=== PATIENT | female | born 1980 | race Caucasian/White ===

== ENCOUNTER 2023-02-15 13:36 | Observation (INO) | payer OTHER, SELFPAY ==
[2023-02-15 13:52] VITALS: BP 136/85; PULSE 68
[2023-02-15] MEDS: LACTATED RINGER'S SOLUTION 1,000 ML 1000 ML IV (14:42)
[2023-02-15] MEDS: RHO(D) IMMUNE GLOBULIN 1,500 UNIT SYRINGE 1500 UNIT IV (14:46)
[2023-02-15] MEDS: NIFEdipine 30 MG TAB.ER.24 PO (16:09)
--- NOTE | 2023-02-15 18:17 | PC.NURSE ---
1800: TC to CNM and report given- ctxs less frequent and less intense- patient felt 3 ctxs in 50 minutes. Instructions received for sve and discharge home if cervix closed. Rest/pelvic rest, stop pumping and nursing 10 month old,. Stop in for checkup next week and procardia to be called into patient pharmacy by CNM. [id number]: SVe unchanged- cervix remains closed- discharge instructions reviewed and patient asks about running and lifting weights. Instructed no running/ lifting weights until seen by CNM next week-patient verbalized understanding. IV discontinued and copy of discharge instructions reviewed and given to patient. 1825: discharged ambulatory home undelivered with mother.
== END 2023-02-15 18:30 | disposition home or self-care (01) ==
PROVIDERS: Admitting Provider Midwife; Visit Provider Midwife
DX: O47.03 False labor before 37 completed weeks of gestation, third trimester (principal); O26.893 Other specified pregnancy related conditions, third trimester; Z3A.29 29 weeks gestation of pregnancy; Z67.11 Type A blood, Rh negative
CPT/HCPCS: 36415; 59025; 86850; 86900; 86901; 96372; G0378; G0379; J2790

== ENCOUNTER 2023-02-16 20:47 | Outpatient (OUT) | payer OTHER, SELFPAY ==
[2023-02-16 21:30] LABS: Bilirubin Urine NEGATIVE (NEGATIVE); Blood Urine NEGATIVE (NEGATIVE); Clarity Urine CLEAR (CLEAR); Color Urine LT. YELLOW (YELLOW); Glucose Urine UA NEGATIVE (NEGATIVE); Ketones Urine NEGATIVE (NEGATIVE); Leukocyte Esterase Urine NEGATIVE (NEGATIVE); Nitrite Urine NEGATIVE (NEGATIVE); Protein Urine NEGATIVE (NEG/TRACE); Specific Gravity Urine <=1.005 (1.005-1.025); Urobilinogen Urine 0.2 EU/dL (0.2-1.0)
[2023-02-16 21:31] LABS: Urine Microscopic Indicated NO
[2023-02-16 22:01] VITALS: BP 101/54; PULSE 63; RESP 16; TEMP 36.9
--- NOTE | 2023-02-16 22:22 | US_ITS ---
[address] [address] Patient Name: GAY MARROQUIN MRN: [id number] date: 1980 Sex: F Assigned Patient Location: [facility] Current Patient Location: [facility] Accession/Order Number: [id number] Exam Date: 02/16/2023 22:48 Report Date: 02/16/2023 23:20 At the request of: BILLY PRADO Procedure: US OB cervical length Examination:US OB cervical length INDICATION:Contractions x2 days COMPARISON:None. TECHNIQUE:Transvaginal imaging of the pelvis was performed. FINDINGS:The cervix measures 4.1 cm and is closed without cervical funneling. There is a single live intrauterine gestation with a heartbeat of 139 bpm. US/US OB cervical length IMPRESSION: Cervical length is 4.1 cm without funneling. Electronically authenticated by: JE HARDING Date: 02/16/2023 23:20
== END 2023-02-16 23:30 | disposition home or self-care (01) ==
LOC: FBCO 20:49 → FBC 20:51
PROVIDERS: Obstetrics & Gynecology; Visit Provider Midwife
DX: O47.9 False labor, unspecified (principal); Z3A.00 Weeks of gestation of pregnancy not specified
CPT/HCPCS: 59025; 76817; 81003

== ENCOUNTER 2023-02-28 18:22 | Observation (INO) | payer OTHER, SELFPAY ==
[2023-02-28] VITALS (28 sets, daily range): BP systolic 105–121; BP diastolic 55–72; PULSE 65–162
[2023-02-28 18:59] LABS: Bilirubin Urine NEGATIVE (NEGATIVE); Blood Urine NEGATIVE (NEGATIVE); Clarity Urine CLEAR (CLEAR); Color Urine LT. YELLOW (YELLOW); Glucose Urine UA NEGATIVE (NEGATIVE); Ketones Urine NEGATIVE (NEGATIVE); Leukocyte Esterase Urine TRACE (NEGATIVE); Nitrite Urine NEGATIVE (NEGATIVE); Protein Urine NEGATIVE (NEG/TRACE); Specific Gravity Urine <=1.005 (1.005-1.025); Urobilinogen Urine 0.2 EU/dL (0.2-1.0)
[2023-02-28 19:05] LABS: Bacteria Urine TRACE #/HPF (NONE SEEN); Cast Seen? NONE SEEN #/LPF (NONE SEEN); Crystals Seen? None Seen #/HPF (None Seen); Mucus Urine NONE SEEN (NONE SEEN); RBC Urine NONE SEEN #/HPF (0-2); Squamous Epithelial Cell Urine MODERATE #/LPF (NONE/RARE)
--- NOTE | 2023-02-28 19:24 | US_ITS ---
The [address] [address] Patient Name: GAY MARROQUIN MRN: [id number] date: 1980 Sex: F Assigned Patient Location: [facility] Current Patient Location: [facility] Accession/Order Number: [id number] Exam Date: 02/28/2023 20:00 Report Date: 02/28/2023 21:51 At the request of: MARKO GAMEZ Procedure: US OB growth EXAM: US OB growth HISTORY: contractions. COMPARISON: Cervical length study, same date TECHNIQUE: Transabdominal sonography is performed. FINDINGS: There is a single, live intrauterine . Cardiac activity is measured at 146 bpm. Amniotic fluid pockets measured 20.1 cm, which falls between the fifth and 95th percentile. The cervical os is closed. The cervical length measures 3.9 cm. The stents from the placenta to the internal os measures 4.2 cm. Femur length is measured at 5.8 cm, consistent with a gestational age of 30 weeks 2 days. This falls at the 20th percentile. Abdominal circumference measures 28.2 cm, the stent with a gestational age of 32 weeks 2 days. This falls at the 81st percentile. Head circumference is measured at 32 cm, consistent with a gestational age of 35 weeks 4 days, which falls at the 97th percentile. US/US OB growth IMPRESSION: Single live intrauterine gestation. Normal volume amniotic fluid. The cervical os is closed. Measurements show the femur length to fall at approximately the 20th percentile, disproportionate to the head circumference which falls at the 97th percentile. Question whether this is artifactual due to the position of the fetus versus a true finding. The fetus appears to be breech. Electronically authenticated by: OLEG MCCARTNEY Date: 02/28/2023 21:51
--- NOTE | 2023-02-28 19:24 | US_ITS ---
[address] [address] Patient Name: GAY MARROQUIN MRN: [id number] date: 1980 Sex: F Assigned Patient Location: [facility] Current Patient Location: [facility] Accession/Order Number: [id number] Exam Date: 02/28/2023 20:00 Report Date: 02/28/2023 21:31 At the request of: MARKO GAMEZ Procedure: US OB cervical length EXAM: US OB cervical length HISTORY: contractiuons COMPARISON: None. TECHNIQUE: Limited ultrasound is performed for evaluation of cervical length. Multiple grayscale images are submitted for review. FINDINGS: The cervix appears closed. Cervical length measures 3.9 cm. Placenta tip to the internal os measures 4.2 cm. Single live intrauterine is seen. Amniotic fluid volume appears normal and 20.1 cm, between fifth and 95th percentile.. The largest fluid pocket measures 7.4 cm. heart rate is 146 beats per minute. Estimated weight measures 1895 g (74.1%) Head circumference measures greater than 97%. US/US OB cervical length IMPRESSION: The cervix appears closed. Cervical length measures 3.9 cm. There are single live intrauterine . Normal amniotic fluid volume is rotated. heart rate is 146 beats per minute. Estimated weight measures 1895 g (74.1%) Electronically authenticated by: KERMIT GAMA Date: 02/28/2023 21:31
[2023-02-28] MEDS: LACTATED RINGER'S SOLUTION 1,000 ML 1000 ML IV (19:37)
[2023-02-28] MEDS: MAGNESIUM SULFATE IN WATER 4 GM/100 ML PIGGYBACK IV (19:39)
[2023-02-28] MEDS: MAGNESIUM SULFATE IN WATER 40 GM/1,000 ML IV.SOLN IV (20:11)
--- NOTE | 2023-02-28 20:21 | PC.NURSE ---
2015 Dr Jackson is accepting patient transfer
[2023-02-28] MEDS: BETAMETHASONE ACE/BETAMETHASONE SOD PHOS 30 MG/5 ML 12 MG IM (20:22)
[2023-02-28] MEDS: NIFEdipine 10 MG CAPSULE 20 MG PO (22:55)
--- NOTE | 2023-02-28 22:58 | P.EN_ITS ---
Event Note Event Note: 1914 arrived in unit. patient assessed for contractions and rule out labor. Patient came to the hospital due to painful contractions and breathing through them. RN performed SVE and stated patient was 1-2/50/soft and unable to assess presenting part. US called and breech position verified. Ord ers given. I also called Dr Perez with report due to patient being a repeat section. 1999 transport team called at [facility]. Spoke with M Dr Jackson. Report given and she agrees to accept the patient for contractions, paperwork completed and transfer consent obtained, history of section, contractions and dilatation. I reported I started 4gm bolus of magnesium sulfate started for bolus and then 2 gm maintenance to infuse when bolus is complete. Procardia 20 mg q6 hrs ordered per Dr Jackson at [place], that dose will be due at 11:10 PM. Discussed transfer of care with patient and she is in agreement. She also does admit to me that even though I instructed pelvic rest, she did have intercourse today. US to department, she states cervical length is 3.9 cm, TRAY 20.1 cm, EFW 4#3 oz which is 74% growth, and head circumference is greater than 97%. 2200 SVE done cervix is unchanged from previous exam. 2229 [facility] transport team present in unit and preparing to transfer patient. Care relinquished to the team at this time. 2254 [facility] RN administers Procardia 20 mg po as it will be due in 20 mins and they will be en route and she would get it late if they waited until she got to [place].
== END 2023-02-28 22:55 | disposition short-term general hospital (02) ==
PROVIDERS: Admitting Provider Midwife; Visit Provider Midwife
DX: O60.03 Preterm labor without delivery, third trimester (principal); Z3A.38 38 weeks gestation of pregnancy
CPT/HCPCS: 59025; 76816; 76817; 81001; 96372; 96374; 96376; G0378; G0379; J0702

== ENCOUNTER 2023-03-21 07:53 | Outpatient (OUT) | payer OTHER, SELFPAY ==
[2023-03-21 12:20] VITALS: TEMP 36.1
[2023-03-21 12:21] VITALS: BP 118/73; PULSE 67
== END 2023-03-21 12:45 | disposition home or self-care (01) ==
LOC: FBCO 07:53 → FBC 12:18
PROVIDERS: Visit Provider Midwife
DX: O09.529 Supervision of elderly multigravida, unspecified trimester (principal); Z3A.00 Weeks of gestation of pregnancy not specified
CPT/HCPCS: 59025

== ENCOUNTER 2023-04-25 05:30 | Inpatient (IN) | payer OTHER, SELFPAY ==
[2023-04-25] VITALS (26 sets, daily range): BP systolic 91–140; BP diastolic 50–90; PULSE 62–80; RESP 14–27; TEMP 36.6–37.1; O2SAT 98
--- OUTSIDE RECORDS SUMMARY | 2023-04-25 05:34 | XMS_ITS | CCD ---
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 Name Role Phone Unavailable Primary Care Provider Unavailabl e PAY, DR CROW Attending [facility] CUELLO Primary Care Unavailable PAY, DR CROW Admitting Unavailable PAY, DR CROW Consulting Unavailable LIYA, HILARIA GUTIÉRREZ Consulting Unavailable JANA, REGAN Consulting Unavailable Shanique Mark MD Primary Care Ct ovider MACEY WONG Admitting Unavailable MACEY WONG Attending Unavailable SHANIQUE MARK Primary Care Un available SHANIQUE MARK Primary Care Un available FLOROMARKO Admitting Unavailable FLOROMARKO Attending Unavailable FLOROMARKO Referring Unavailable FLORO, MARKO Shaffer Attending Unavailable FLORO, MARKO Shaffer Referring Unavailable FLORO, MARKO Shaffer Referring Unavailable FLORO, MARKO Shaffer Referring Unavailable FLORO, MARKO Shaffer Attending Unavailable FLORO, MARKO Shaffer Referring Unavailable FLORO, MARKO Shaffer Attending Unavailable FLORO, MARKO Edmund Referring Unavailable FLORO, MARKO Edmund Attending Unavailable FLORO, MARKO Edmund Attending Unavailable FLORO, MARKO Edmund Referring Unavailable FLORO, MARKO Edmund Attending Unavailable FLORO, MARKO Edmund Referring Unavailable Medications Current Medications Medication Drug Class(es) Dates Sig (Normalized) Sig (Original) acetaminophen 500 mg oral tablet (1 source) Start: 03-16-2022 acetaminophen (TYLENOL) tablet 1,000 mg benzocaine 6 mg / menthol 10 mg oral lozenge (1 source) Standardized Chemical Allergen Start: 03-17-2022 Benzocaine-Menthol (CEPACOL) 1 lozenge calcium chloride 0.0014 meq/ml / potassium chloride 0.004 meq/ml / sodium chloride 0.103 meq/ml / sodium lactate 0.028 meq/ml injectable solution (3 sources) Start: 03-16-2022 End: 03-16-2022 lactated ringers infusion 1 ml carboprost 0.25 mg/ml injection (1 source) Prostaglandin Analog Start: 03-16-2022 carboprost (HEMABATE) injection 250 mcg 1 ml diphenhydrAMINE hydrochloride 50 mg/ml cartridge (1 source) Histamine-1 Receptor Antagonist Start: 03-16-2022 diphenhydrAMINE (BENADRYL) injection 25 mg docusate sodium 100 mg oral capsule (2 sources) Start: 03-16-2022 take 1 capsule by mouth twice daily as needed for constipation docusate sodium (COLACE, DULCOLAX) 100 MG CAPS Take 100 mg by mouth 2 times daily as needed for Constipation 30 capsule 1 03/18/2022 Active docusate sodium 50 mg / sennosides, retirement 8.6 mg oral tablet (1 source) Start: 03-16-2022 sennosides-docusate sodium (SENOKOT-S) 8.6-50 MG tablet 1 tablet 0.4 ml enoxaparin sodium 100 mg/ml prefilled syringe (1 source) Low Molecular Weight Heparin Start: 03-16-2022 enoxaparin (LOVENOX) injection 40 mg ibuprofen 800 mg oral tablet (2 sources) Nonsteroidal Anti-inflammatory Drug Start: 03-17-2022 End: 03-21-2022 take 1 tablet by mouth every eight hours as needed for pain ibuprofen (ADVIL;MOTRIN) 800 MG tablet Take 1 tablet by mouth every 8 hours as needed for Pain 90 tablet 1 03/18/2022 03/21/2022 Active lanolin 1000 mg/ml topical cream (1 source) Start: 03-16-2022 lansinoh lanolin ointment 1 ml methylergonovine maleate 0.2 mg/ml injection (1 source) Ergot Derivative Start: 03-16-2022 methylergonovine (METHERGINE) injection 200 mcg miSOPROStol 0.1 mg oral tablet (1 source) Prostaglandin E1 Analog Start: 03-16-2022 miSOPROStol (CYTOTEC) tablet 800 mcg Multiple Vitamins-Minerals (THERAPEUTIC MULTIVITAMIN-MINERALS ) tablet (2 sources) take 1 tablet by mouth once daily Multiple Vitamins-Minerals (THERAPEUTIC MULTIVITAMIN-MINERAL S) tablet Take 1 tablet by mouth daily 0 Active take 1 tablet by mouth once mallorie y Multiple Vitamins-Minerals (THERAPEUTIC MULTIVITAMIN-MINERALS) tablet Take 1 tablet by mouth daily 0 Suspended 1 ml nalbuphine hydrochloride 10 mg/ml injection (1 source) Opioid Agonist/Antagonist Start: 03-16-2022 nalbuphine (NUBAIN) injection 10 mg 1 ml naloxone hydrochloride 0.4 mg/ml injection (1 source) Opioid Antagonist Start: 03-16-2022 naloxone (NARCAN) injection 0.4 mg 2 ml ondansetron 2 mg/ml injection (1 source) Serotonin-3 Receptor Antagonist Start: 03-16-2022 ondansetron (ZOFRAN) injection 4 mg oxyCODONE hydrochloride 5 mg oral tablet (2 sources) Opioid Agonist Start: 03-18-2022 End: 03-21-2022 take 1 tablet by mouth every six hours as needed for pain oxyCODONE (ROXICODONE) 5 MG immediate release tablet Indications: S/P repeat low transverse Take 1 tablet by mouth every 6 hours as needed for Pain for up to 3 days. Max Daily Amount: 20 mg 12 tablet 0 03/18/2022 03/21/2022 Active Start: 03-16-2022 oxyCODONE (FELIPE ICODONE) immediate release tablet 5 mg vitamin 27-1 MG tab let 1 tablet (1 source) Start: 03-16-2022 vitam in 27-1 MG tablet 1 tablet simethicone 80 mg chewable tablet (1 source) Start: 03-16-2022 simethicone (M YLICON) chewable tablet 80 mg 5 ml sodium chloride 9 mg/ml injection (3 sources) Start: 03-16-2022 0.9 % sodium c hloride infusion Start: 03-16-2022 sodium chlorid e flush 0.9 % injection 5-40 mL Completed/Discontinued Medications Medication Drug Class(es) Dates Sig (Normalized) Sig (Original) albuterol 0.83 mg/ml inhalation solution (1 source) beta2-Adrenergic Agonist Start: 03-18-2022 End: 03-18-2022 albuterol (PROVENTIL) nebulizer solution 2.5 mg Start: 03-18-2022 End: 03-18-2022 albuterol (PROVENTIL) nebuli zer solution 2.5 mg 24 hr buPROPion hydrochloride 300 mg extended release oral tablet (3 sources) Aminoketone Start: 12-11-2019 End: 03-18-2022 buPROPion (WELLBUTRIN XL) 300 MG extended release tablet cefOXitin (MEFOXIN) 2000 mg in dextrose 5% 50 mL (mini-bag) (1 source) Start: 03-16-2022 End: 03-16-2022 cefOXitin (MEFOXIN) 2000 mg in dextrose 5% 50 mL (mini-bag) citric acid 66.8 mg/ml / sodium citrate 100 mg/ml oral solution (1 source) Calculi Dissolution Agent, Anti-coagulant Start: 03-16-2022 End: 03-16-2022 citric acid-sodium citrate (BICITRA) solution 30 mL dextromethorphan hydrobromide 2 mg/ml / guaiFENesin 20 mg/ml oral suspension (1 source) Uncompetitive X-iyiorr-K-aspartate Receptor Antagonist, Sigma-1 Agonist Start: 03-18-2022 End: 03-18-2022 guaiFENesin-dextrom ethorphan (ROBITUSSIN DM) 100-10 MG/5ML syrup 10 mL Ethinyl Estradiol / Ferrous fumarate / Norethindrone (3 sources) Estrogen Start: 11-04-2019 End: 03-18-2022 MICROGESTIN FE 1/20 1-20 MG-MCG per tablet Start: 11-04-2019 MICROGESTIN FE 1/20 1-20 MG-MCG per tablet famotidine (PEPCID) 20 mg in sodium chloride (PF) 0.9 % 10 mL injection (1 source) Start: 03-16-2022 End: 03-16-2022 famotidine (PEPCID) 20 mg in sodium chloride (PF) 0.9 % 10 mL injection 1 ml ketorolac tromethamine 30 mg/ml cartridge (1 source) Nonsteroidal Anti-inflammatory Drug, Cyclooxygenase Inhibitor Start: 03-16-2022 End: 03-17-2022 ketorolac (TORADOL) injection 30 mg 2 ml metoclopramide 5 mg/ml prefilled syringe (1 source) Dopamine-2 Receptor Antagonist Start: 03-16-2022 End: 03-16-2022 metoclopramide (REGLAN) injection 10 mg rho(d) immune globulin, human 1500 unt prefilled syringe (1 source) Human Immunoglobulin G Start: 03-16-2022 End: 03-18-2022 rho(D) immune globulin (HYPERRHO S/D) injection 300 mcg Problems Problem Classification Problem Date Documented Da te Episodic/Chronic Other aftercare (1 source) 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; Translations: [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] Onset: 12-07-2020 Episodic Other lower respiratory disease (3 sources) Shortness of breath; Translations: [SHORTNESS OF BREATH] Onset: 12-04-2020 Episodic Other and delivery including normal (2 sources) Term ; Translations: [Encounter for supervision of normal , unspecified, unspecified trimester] Onset: 03-16-2022 Episodic Other upper respiratory infections (2 sources) Viral upper respiratory tract infection; Translations: [Acute upper respiratory infection, unspecified] Onset: 03-16-2022 Episodic Previous (2 sources) Maternal care for unspecified type scar from previous delivery; Translations: [Maternal care for unspecified type scar from previous delivery] Onset: 03-15-2022 Episodic Residual codes; unclassified (1 source) History of uterine scar from previous surgery; Translations: [History of uterine scar from previous surgery] Onset: 03-16-2022 Episodic Unclassified (3 sources) Patient encounter status; Translations: [Screen for STD (sexually transmitted disease)] Viral infection (1 source) COVID-19; Translations: [COVID-19] Onset: 12-07-2020 Results Test Name Value Interpretation Reference Range Facil ity US BIOPHYSICAL PROFILE WO NON STRESS TESTINGon 04-20-2023 US BIOPHYSICAL PROFILE WO NON STRESS TESTING EXAMINATION: BIOPHYSICAL PROFILE CLINICAL HISTORY: COMPARISONS: None available. FINDINGS: Transabdominal ultrasound of the gravid uterus was performed for 30 minutes or less for evaluation of biophysical profile with scoring as follows: 2 out of 2 for breathing 2 out of 2 for movement. 2 out of 2 for tone. 2 out of 2 for amniotic fluid volume. heart rate of 134 beats per minute is documented. Amniotic fluid index calculated at 14.22 cm, 56.8%. IMPRESSION: BIOPHYSICAL PROFILE WITH A SCORE OF 8 OUT OF 8. CLINICAL CORRELATION RECOMMENDED. Normal Not Available US OB FOLLOW UP TRANSABDOMIN AL APPROACHon 04-13-2023 US OB FOLLOW UP TRANSABDOMINAL APPROACH HISTORY: Interval follow-up COMPARISON: 04/06/2023 TECHNIQUE: Sonography of the pelvis was performed by transabdominal technique. Images were obtained and stored in a permanent archive. RESULT: Gestation: Single present. Position: Cephalic Placenta: Location: Posterior Grade: I Previa: absent Cervix: Closed measuring 3.8 cm in length. Cardiac activity: 141 bpm BPD: 9.2 cm HC: 33.4 cm AC: 33 cm FL: 7.3 cm Amniotic fluid: 14.8 cm, 58th percentile Estimated weight (EFW): 3171 g (7 pounds 0 ounces), 61st percentile Estimated gestational age: 37 weeks 2 days estimated gestational age by composite. Anatomy: No gross anomalies in the visualized anatomy. IMPRESSION: Single, live intrauterine with estimated 37 weeks 2 days gestational age. ELECTRONICALLY SIGNED BY: Tomas Khan MD Normal Not Available US OB FOLLOW UP TRANSABDOMIN AL APPROACHon 04-06-2023 US OB FOLLOW UP TRANSABDOMINAL APPROACH This is a summary report. The complete report is available in the patient's medical record. If you cannot access the medical record, please contact the sending organization for a detailed fax or copy. US OB FOLLOW UP TRANSABDOMINAL APPROACH: 04/06/2023 9:02 AM CLINICAL HISTORY: Ultrasound. For growth only COMPARISON: March 30, 2023 Transabdominal ultrasound of the gravid uterus was performed. FINDINGS: A single live intrauterine is noted in cephalic position. cardiac activity measures approximately 141 beats per minute. The cervix measures approximately 3.61 cm in longitudinal length. A grade 1 appearing placenta is posterior without evidence of an abnormal subplacental collection or previa. The amniotic fluid volume appears within normal limits for gestation. The TRAY measures 13.89 cm. The following measurements were obtained: BPD 8.96 cm, HC 32.27 cm, AC 32.38 cm, FL 7.09 cm, which corresponds to an aggregate gestational age of 36 weeks 2 days. Estimated weight is 2908 g which places this fetus in the 56.8 percentile.. There is no free fluid noted in the maternal pelvis. Neither maternal ovary is identified. IMPRESSION: SINGLE LIVE INTRAUTERINE CORRESPONDING TO APPROXIMATELY 36 WEEKS 2 DAYS WITH AN EXPECTED DUE DATE OF MAY 02, 2023.. NO GROSS ABNORMALITIES IDENTIFIED, WITHIN THE LIMITS OF THE STUDY. ELECTRONICALLY SIGNED BY: Hector Corey DO Normal Not Available US OB FOLLOW UP TRANSABDOMIN AL APPROACHon 03-30-2023 US OB FOLLOW UP TRANSABDOMINAL APPROACH HISTORY: Supervision of , third trimester. Age by LMP of 35 weeks 1 day COMPARISON: 03/24/2023 TECHNIQUE: Sonography of the pelvis was performed by transabdominal technique. Images were obtained and stored in a permanent archive. RESULT: Gestation: Single present. Position: Cephalic Placenta: Location: Posterior Grade: 1 Previa: absent Cervix: Closed measuring 3.9 cm in length. Cardiac activity: 143 bpm BPD: 8.8 cm HC: 31.7 cm AC: 31.6 cm FL: 6.9 cm Amniotic fluid: 12.8 cm, 37.1 percentile Estimated weight (EFW): 2696 g (5 pounds 15 ounces), 57.9 percentile Estimated gestational age: 35 weeks 4 days estimated gestational age by composite. Anatomy: No gross anomalies in the visualized anatomy. IMPRESSION: Single, live intrauterine with estimated 35 weeks 4 days gestational age. ELECTRONICALLY SIGNED BY: Tomas Khan MD Normal Not Available US OB FOLLOW UP TRANSABDOMIN AL APPROACHon 03-24-2023 US OB FOLLOW UP TRANSABDOMINAL APPROACH FINDINGS: Single live intrauterine . heart rate 118 bpm. Cephalic position. Fundal grade 1 placenta. TRAY 15.0 cm. Cervical length 5.1 cm. Estimated sonographic gestational age 35 weeks, 0 days. Gestational age by dates 34 weeks, 2 days. Estimated date of delivery April 28, 2023. Estimated weight 2523 g (60.3% by LMP percentile). BPD 8.86 cm. HC 31.57 cm. AC 30.86 cm. FL 6.65 cm. IMPRESSION: Impression: Single live intrauterine with estimated sonographic gestational age 35 weeks, 0 days. Estimated weight 2523 g. ELECTRONICALLY SIGNED BY: Abhijit Coleman MD Normal Not Available US OB FOLLOW UP TRANSABDOMIN AL APPROACHon 03-16-2023 US OB FOLLOW UP TRANSABDOMINAL APPROACH This is a summary report. The complete report is available in the patient's medical record. If you cannot access the medical record, please contact the sending organization for a detailed fax or copy. US OB FOLLOW UP TRANSABDOMINAL APPROACH: 03/16/2023 9:22 AM CLINICAL HISTORY: Ultrasound. Multigravida, maternal advanced age COMPARISON: March 09, 2023 Transabdominal ultrasound of the gravid uterus was performed. FINDINGS: A single live intrauterine is noted in breech position. cardiac activity measures approximately 156 beats per minute. The cervix measures approximately 3.94 cm in longitudinal length. Grade 1 placenta is posterior without evidence of an abnormal subplacental collection or previa. The amniotic fluid volume appears within normal limits for gestation. It measures 15.45 cm. The following measurements were obtained: BPD 8.39 cm, HC 30.70 cm, AC 29.68 cm, FL 6.49 cm, which corresponds to an aggregate gestational age of 33 weeks 6 days. Estimated weight is 2250 g which places this fetus in the 57.9 percentile. There is no free fluid noted in the maternal pelvis. Neither maternal ovary is identified. IMPRESSION: SINGLE LIVE INTRAUTERINE CORRESPONDING TO APPROXIMATELY 33 WEEKS 6 DAYS. The expected due date is April 28, 2023 NO GROSS ABNORMALITIES IDENTIFIED, WITHIN THE LIMITS OF THE STUDY. ELECTRONICALLY SIGNED BY: Hecotr Corey, DO Normal Not Available US OB FOLLOW UP TRANSABDOMIN AL APPROACHon 03-09-2023 US OB FOLLOW UP TRANSABDOMINAL APPROACH This is a summary report. The complete report is available in the patient's medical record. If you cannot access the medical record, please contact the sending organization for a detailed fax or copy. US OB FOLLOW UP TRANSABDOMINAL APPROACH: 03/09/2023 8:46 AM CLINICAL HISTORY: Ultrasound. COMPARISON: February 23, 2023 Transabdominal ultrasound of the gravid uterus was performed. FINDINGS: A single live intrauterine is noted in breech position. cardiac activity measures approximately 145 beats per minute. The lower uterine segment and cervix are seen, and appear within normal limits. The cervix measures approximately 4.4 cm cm in longitudinal length. A grade 1-appearing placenta is posterior without evidence of an abnormal subplacental collection or previa. The amniotic fluid volume appears within normal limits for gestation. It measures 15.2 cm. The following measurements were obtained: BPD 8.21 cm, HC 29.49 cm, AC 28.52 cm, FL 6.21 cm, which corresponds to an aggregate gestational age of 32 weeks 4 days. Estimated weight is 1983 g which places this fetus in the 50 percentile.. There is no free fluid noted in the maternal pelvis. Neither maternal ovary is identified. IMPRESSION: SINGLE LIVE INTRAUTERINE CORRESPONDING TO APPROXIMATELY 32 WEEKS 4 DAYS WITH AN EXPECTED DUE DATE OF APRIL 30, 2023.. NO GROSS ABNORMALITIES IDENTIFIED, WITHIN THE LIMITS OF THE STUDY. ELECTRONICALLY SIGNED BY: Hector Corey DO Normal Not Available [facility] 02-24-2023 Outside Records [id number][facility]ABDOMIN AL APPROACHon 02-23-2023 US OB FOLLOW UP TRANSABDOMINAL APPROACH FINDINGS: Single live intrauterine . heart rate 132 bpm. Somatic motion identified. Grade 0 fundal placenta. TRAY 15.9 cm. Cervical length 4.9 cm. Estimated sonographic gestational age 30 weeks, 2 days. Gestational age by dates, 30 weeks, 2 days. Estimated sonographic date of delivery May 02, 2023. Estimated weight 1580 g (43.6% by LMP percentile. BPD 7.81 cm. HC 28.75 cm. FL 5.79 cm. HC 26.11 cm. IMPRESSION: Impression: Single live intrauterine with estimated sonographic gestational age 30 weeks, 2 days. Estimated weight 1580 g. ELECTRONICALLY SIGNED BY: Abhijit Coleman MD Normal Not Available [facility] 02-22-2023 Outside Records [id number]#1. [facility] - Other Lab Results [id number]#1 .[facility] 01-27-2023 Outside Records [id number]# 1.[facility] - Other Lab Results [id number]# 1.[facility] - Other Lab Results [id number]#1 .[facility] 11-30-2022 Outside Records [id number]#1. [facility] - Other Lab Results [id number]#1 .[facility] 10-26-2022 Outside Records [id number]#1.0 [facility] 10-07-2022 Outside Records [id number]# 1.[facility] - Other Lab Results [id number]#1 .[facility] ROSETTEon 03-17-2022 Ramandeep Negative [facility] Rosetteon 03-17-2022 Ramandeep Negative Normal [facility] Comment on above: Performed By: #### C FET #### [facility] [address] [place] [address] Heel Sorter: Juan Salazar MD Hemoglobinon 03-17-2022 Hemoglobin (Bld) [Mass/Vol] 10.3 g/dL Low 11.9-15.1 [facility] Comment on above: Performed By: #### H GB #### [facility] [address] [place] [address] Heel Sorter: Juan Salazar MD Hemoglobin (Bld) [Mass/Vol] 10.3 g/dL Low 11.9 - 15.1 g/dL [facility] Interpretation and review of laboratory results Abnormal [facility] RHIG, Transfuseon 03-17-2022 RHIG, Transfuse Unit Number [id number] Blood Component Type RHIG Unit Division 00 Status of Unit TRANSFUSED Transfusion Status OK TO TRANSFUSE Normal [facility] Comment on above: Performed By: #### T RHIG #### [facility] [address] [place] [address] Heel Sorter: Juan Salazar MD DRUG SCREEN MULTI URINEon Amphetamine Screen, Ur Negative NEGATIVE [facility] Barbiturate Screen, Ur Negative NEGATIVE [facility] Benzodiazepine Screen, Urine Negative NEGATIVE [facility] Buprenorphine Urine Negative NEGATIVE [facility] Cannabinoid Scrn, Ur Negative NEGATIVE [facility] Cocaine Metabolite, Urine Negative NEGATIVE [facility] Methadone Screen, Urine Negative NEGATIVE [facility] Methamphetamine, Urine Negative NEGATIVE [facility] Opiates, Urine Negative NEGATIVE [facility] Oxycodone Screen, Ur Negative NEGATIVE [facility] Phencyclidine, Urine Negative NEGATIVE [facility] Propoxyphene, Urine Negative NEGATIVE [facility] Tricyclic Antidepressants, Urine Negative NEGATIVE [facility] Comment on above: Drug screen results are to be used for medical purposes only. All positive results are unconfirmed. Testing for employment or legal uses should be sent to a reference laboratory for confirmation. [facility] Drug Scr, Abuse, Uron 2021 Amphetamine(s),Ur Negative Normal NEG [facility] Comment on above: Performed By: #### D AU #### [facility] [address] [place] [address] Heel Sorter: Juan Salazar MD Barbiturate(s),Ur Negative Normal NEG [facility] Comment on above: Performed By: #### D AU #### [facility] [address] [place] [address] Heel Sorter: Juan Salazar MD Benzodiazepine(s) Negative Normal NEG [facility] Comment on above: Performed By: #### D AU #### [facility] [address] [place] [id number] Heel Sorter: Juan Salazar MD Buprenorphrine, Ur Negative Normal [facility] Comment on above: Performed By: #### D AU #### [facility] [address] [place], [facility] Heel Sorter: Juan Salazar MD Cannabinoid(s),Ur Negative Normal NEG [facility] Comment on above: Performed By: #### D AU #### [address] [place] [address] Heel Sorter: Juan Salazar MD Cocaine Metabolite Negative Normal [facility] Comment on above: Performed By: #### D AU #### [facility] [address] [place] [address] Dr. [place], [facility] Heel Sorter: Juan Salazar MD Methadone Ql (U) Negative Normal [facility] Comment on above: Performed By: #### D AU #### [address] [place] [id number] Heel Sorter: Juan Salazar MD Methamphetamine, Ur Negative Normal [facility] Comment on above: Performed By: #### D AU #### [facility] [address] [place] [address] Dr. [place], [facility] Heel Sorter: Juan Salazar MD Opiate(s), Ur Negative Normal [facility] Comment on above: Performed By: #### D AU #### [facility] [address] [place] [address] Heel Sorter: Juan Salazar MD Oxycodone, Urine Negative Normal NEG [facility] Comment on above: Performed By: #### D AU #### [facility] [address] [place] [address] Dr. [place], [facility] Heel Sorter: Juan Salazar MD Phencyclidine, Ur Negative Normal NEG [facility] Comment on above: Performed By: #### D AU #### [address] [place] [address] Heel Sorter: Juan Salazar MD Propoxyphene,Urine Negative Normal NEG [facility] Comment on above: Performed By: #### D AU #### [address] [place] [address] Heel Sorter: Juan Salazar MD Tricyclic antidepressants Screen Ql (U) Negative Normal NEG [facility] Comment on above: Result Comment: Drug screen results are to be used for medical purposes only. All positive results are unconfirmed. Testing for employment or legal uses should be sent to a reference laboratory for confirmation. Performed By: #### D AU #### [address] [place] [address] Heel Sorter: Juan Salazar MD OPERATIVE REPORTon OPERATIVE REPORT [address] [address] OPERATIVE REPORT PATIENT NAME: GAY MARROQUIN : 1980 MED REC NO: [id number] ROOM: [facility] ACCOUNT NO: [id number] ADMIT DATE: 03/16/2022 PROVIDER: Macey Wong MD DATE OF PROCEDURE: 03/16/2022 PREOPERATIVE DIAGNOSIS: Term with history of two prior sections. POSTOPERATIVE DIAGNOSIS: Term with history of two prior sections. PROCEDURE PERFORMED: Repeat section, low-transverse uterine segment. SURGEON: Macey Wong M.D. ANESTHESIA: Spinal. ENGAGEMENT LEAD: Marko Herbert. ESTIMATED BLOOD LOSS: 600 mL. COMPLICATIONS OF THE PROCEDURE: None. FINDINGS: A viable vigorous female infant in vertex presentation with clear amniotic fluid. DESCRIPTION OF PROCEDURE: The patient was taken to the operating room. Spinal anesthesia was administered. Pneumatic stockings were placed. Prepping with Trent catheter then placed in the bladder and then abdomen sterilely prepped and draped. Prior to this, pneumatic stockings were placed as well. Scalpel was used to incise the old incision. Bovie cautery was used to divide the subcutaneous tissue coagulating small vessels that were encountered and then to divide the fascia and then to help mobilize the fascia away from the underlying rectus muscles both superiorly and inferiorly. The peritoneum was bluntly entered and then the rectus muscles were bluntly and sharply in the midline and then lateral retraction placed on the muscles to allow good visualization of the lower uterine segment. Uterine peritoneum was elevated and incised and this was sharply and bluntly mobilized inferiorly creating a bladder flap. Scalpel was used to make a transverse incision over the lower uterine segment. The incision was carefully opened. Clear amniotic fluid noted and this was extended in a semilunar fashion with wood carving lathe operator's fingers. Uterine incision was then entered with wood carving lathe operator's fingers. Fundal pressure placed. 's head was readily delivered and then with further fundal pressure, 's body readily delivered as well. The cord was allowed to pulse, then it was clamped and cut. handed off to nursing staff attending delivery. Cord blood specimen was obtained and care. Then, placenta was manually extracted from the uterus and the uterus was checked for blood clots and membranes. Cervix was opened with ring forceps. Uterus was brought out of the incision and then the incision was closed with #1 chromic in a running interlocking fashion and then a second layer of running imbricating interlocking fashion. An additional [id number] suture was placed in the superior right lateral portion of the incision to give excellent hemostasis there. The posterior cul-de-sac was then cleaned of blood clots and fluid. Uterus carefully replaced into the abdomen. Anterior cul-de-sac and paracolic gutters were thoroughly cleaned and then uterus was replaced. The fascia was closed with 0 PDS in a running non-interlocking fashion. Subcutaneous tissue was well irrigated and then the subcutaneous layer was closed by Marko Herbert and the skin in a subcuticular fashion as well then. The patient did have a pain block postoperatively and the patient then taken to recovery room in good condition. MACEY WONG MD [id number]/[email or web address] Doc#: [id number] CC: Marko Herbert Normal [facility] CBCon 03-15-2022 Erythrocyte distribution width (RBC) [Ratio] 14.1 % Normal 11.8-14.4 [facility] Comment on above: Performed By: #### C BC #### [facility] [address] [place] [address] [place] [place], [place] [id number] Heel Sorter: Juan Salazar MD Hematocrit (Bld) [Volume fraction] 38.3 % Normal 36.3-47.1 [facility] Comment on above: Performed By: #### C BC #### [address] [place] [id number] Heel Sorter: Juan Salazar MD Hemoglobin (Bld) [Mass/Vol] 13.1 g/dL Normal 11.9-15.1 [facility] Comment on above: Performed By: #### C BC #### [address] [place], [place] [id number] Heel Sorter: Juan Salazar MD MCH (RBC) [Entitic mass] 31.6 pg Normal 25.2-33.5 [facility] Comment on above: Performed By: #### C BC #### [address] [place], [place] [id number] Heel Sorter: Juan Salazar MD MCHC (RBC) [Mass/Vol] 34.2 g/dL Normal 28.4-34.8 [facility] Comment on above: Performed By: #### C BC #### [address] [place] [address] Heel Sorter: Juan Salazar MD MCV (RBC) [Entitic vol] 92.3 fL Normal 82.6-102.9 [facility] Comment on above: Performed By: #### C BC #### [address] [place] [address] Heel Sorter: Juan Salazar MD NRBC Automated 0.0 per 100 WBC Normal 0.0 [facility] Comment on above: Performed By: #### C BC #### [facility] [address] [place] [address] Heel Sorter: Juan Salazar MD Platelet mean volume (Bld) [Entitic vol] 12.2 fL Normal 8.1-13.5 [facility] Comment on above: Performed By: #### C BC #### [facility] [address] [place] [address] Heel Sorter: Juan Salazar MD Platelets (Bld) [#/Vol] 193 10*3/uL Normal 138-453 [facility] Comment on above: Performed By: #### C BC #### [facility] [address] [place] [address] Heel Sorter: Juan Salazar MD RBC (Bld) [#/Vol] 4.15 10*6/uL Normal 3.95-5.11 [facility] Comment on above: Performed By: #### C BC #### [facility] [address] [place] [address] Heel Sorter: Juan Salazar MD WBC (Bld) [#/Vol] 8.7 10*3/uL Normal 3.5-11.3 [facility] Comment on above: Performed By: #### C BC #### [facility] [address] [place] [address] Heel Sorter: Juan Salazar MD Hematocrit (Bld) [Volume fraction] 38.3 % 36.3 - 47.1 % [facility] Hemoglobin (Bld) [Mass/Vol] 13.1 g/dL 11.9 - 15.1 g/dL [facility] MCH (RBC) [Entitic mass] 31.6 pg 25.2 - 33.5 pg [facility] MCHC (RBC) [Mass/Vol] 34.2 g/dL 28.4 - 34.8 g/dL [facility] MCV (RBC) [Entitic vol] 92.3 fL 82.6 - 102.9 fL [facility] NRBC Automated 0.0 0.0 per 100 WBC [facility] Platelet distribution width (Bld) [Ratio] 14.1 % 11.8 - 14.4 % [facility] Platelet mean volume (Bld) [Entitic vol] 12.2 fL 8.1 - 13.5 fL [facility] Platelets (Bld) [#/Vol] 193 10*3/uL [facility] RBC (Bld) [#/Vol] 4.15 10*6/uL 3.95 - 5.1 1 m/uL [facility] WBC (Bld) [#/Vol] 8.7 10*3/uL [facility] Type + Screenon 03-15-2022 Type + Screen Sample Expiration 03/18/2022,2359 Arm Band Number [id number] ABO/Rh(D) A NEGATIVE Antibody Screen POSITIVE Antibody Ident Anti-D, Passive Due To RhIG Normal [facility] Comment on above: Performed By: #### T YS #### [facility] [address] [place] [address] Heel Sorter: Juan Salazar MD GBS, External Resulton 02-21 GBS, External Result Positive [facility] Work Phone: Comment on above: RB RN/ MB RN [facility] Work Phone: US OB Limitedon 01-19-2022 US OB Limited FINDINGS: Comparison made with prior examination of January 10, 2022. A single, viable intrauterine adequate cardiac and activity (approximate 143 beats per minute). Normal morphology. Breech presentation. Anterior placenta Grade 1. Closed cervix 3.1 cm. Qualitative normal amniotic fluid volume, 22.0 cm, minimal change from the prior examination January 10, 2022. No placenta abruption is seen. IMPRESSION: Single, viable intrauterine , breech presentation, closed cervix. Report reported and signed by Eduardo Peres on 01/24/2022 1205 Normal [facility] ABO, External Resulton 12-28 ABO, External Result Negative [employer] Phone: Comment on above: MIL DELEON/ ALEKSANDRA DELEON [employer] Work Phone: US OB 1ST Trimesteron 2021 US OB 1ST Trimester FINDINGS: Comparison is made with the prior examination of August 03, 2021. A single intrauterine gestational sac is present without significant subchorionic hemorrhage. A single pole is present, cardiac heart rate identified (158 beats per minute). Yolk sac also is seen. Current sonographic age is 12 weeks and 0 days. Based on this age, current estimated date of delivery is March 15, 2022. No pelvic fluid or worrisome adnexal mass lesions are seen. Cervix is long and closed. Placenta is developing anteriorly. Anterior uterine body 1.0 x 1.0 cm echogenic area within the lower uterine segment, likely small intramural fibroid. IMPRESSION: Findings consistent with an early intrauterine gestational , current sonographic age of 12 weeks and 0 days resulting in an estimated date of delivery of March 15, 2022. Report reported and signed by Eduardo Peres on 08/31/2021 1130 Normal [facility] C. Trachomatis, External Res [facility] 08-16-2021 C. Trachomatis, External Result Not detected [employer] Work Phone: Comment on above: MIL JAEGER/ ALEKSANDRA DELEON Hepatitis B, External Result on 08-16-2021 Hep B, External Result Non-Reactive [employer] Work Phone: Comment on above: MIL DELEON/ ALEKSANDRA DELEON N. Gonorrhoeae, External Res [facility] 08-16-2021 N. Gonorrhoeae, External Result Not detected [employer] Work Phone: No Panel Informationon 08-16 [employer] Work Phone: [employer] Work Phone: Q - ABO GROUP AND RH TYPEon 08-16-2021 ABO group Nom (Bld) A Normal [facility] Specialist Comment on above: Order Comment: [facility] Testing performed at: [facility], [facility], [address] [place] [address], [address] [place] [address], [address] [place] [address], Medicaid Collection Specialist: Mike Larkin MD [facility] Collection Date/Time: [facility] Results Received Date/Time: [facility] Reported Date/Time: Performed By: #### 5 3348W, 4439, 6399, 49294, 2782A, 1149T, 43739, 265F, 430A, 6304R, 87240T, 69927 #### [facility] Default [address] [place] [address] RH TYPE Negative Normal [facility] Comment on above: Order Comment: [facility] performed at: Q, [facility], [address] [facility], [address] [place] [address], [address] [place] [address], Medicaid Collection Specialist: Mike Larkin MD [facility] Date/Time: [facility] Results Received Date/Time: [facility] Reported Date/Time: Result Comment: For additional information, please refer to http://education.[employer]/faq/XSF975 (This link is being provided for informational/ educational purposes only.) Performed By: #### 5 3348W, 4439, 6399, 38901, 2782A, 1149T, 51408, 265F, 430A, 6304R, 94182J, 28719 #### [facility] Default [address] [place] [address] Q - ANTIBODY SCREEN,RBC W/RE FL ID,TITER AND AGon 08-16-2021 ANTIBODY SCREEN, RBC W/REFL ID, TITER AND AG Detected Normal [facility] Comment on above: Order Comment: [facility] performed at: [employer], [facility], [address] [facility], [address] [place] [address], [address] [place] [address], Medicaid Collection Specialist: Mike Larkin MD [facility] Date/Time: [facility] Results Received Date/Time: [facility] Reported Date/Time: Result Comment: Refe rence range No antibodies detected This assay is a screening test for the detection of red blood cell antibodies. The test is not to be used for pretransfusion screening or for the medical management of an alloimmunized . Performed By: #### 5 3348W, 4439, 6399, 12762, 2782A, 1149T, 39238, 265F, 430A, 6304R, 62369X, 76591 #### [facility] Default [address] [place] [address] Q - CBC W/DIFF AND PLTon BASOABS 20 cells/uL Normal 0-200 [facility] Comment on above: Order Comment: [facility] performed at: [facility] [facility], [address] [place] [address], [address] [place] [address], [address] [place] [address], Medicaid Collection Specialist: Mike Larkin MD [facility] Date/Time: [facility] Results Received Date/Time: [facility] Reported Date/Time: Performed By: #### 5 3348W, 4439, 6399, 81901, 2782A, 1149T, 42308, 265F, 430A, 6304R, 64455T, 85896 #### [facility] Default [address] [place] [address] Basophils/100 WBC (Bld) 0.2 % Normal [facility] Specialist Comment on above: Order Comment: [facility] performed at: [employer] [facility], [address] [facility], [address] [place] [address], [address] [place] [address], Medicaid Collection Specialist: Mike Larkin MD [facility] Date/Time: [facility] Results Received Date/Time: [facility] Reported Date/Time: Performed By: #### 5 3348W, 4439, 6399, 55680, 2782A, 1149T, 91338, 265F, 430A, 6304R, 96357O, 86161 #### [facility] Default [address] [place] [address] EOSABS 30 cells/uL Normal 15-500 [facility] Comment on above: Order Comment: [facility] performed at: [employer], [facility], [address] [facility], [address] [place] [address], [address] [place] [address], Medicaid Collection Specialist: Mike Larkin MD [facility] Date/Time: [facility] Results Received Date/Time: [facility] Reported Date/Time: Performed By: #### 5 3348W, 4439, 6399, 43641, 2782A, 1149T, 51773, 265F, 430A, 6304R, 93937S, 97143 #### [facility] Default [address] [place] [address] Eosinophils/100 WBC (Bld) 0.3 % Normal [facility] Comment on above: Order Comment: [facility] performed at: [employer], [facility], [address], [address] [place] [address], [phone], Medicaid Collection Specialist: Mike Larkin MD [facility] Date/Time: [facility] Results Received Date/Time: [facility] Reported Date/Time: Performed By: #### 5 3348W, 4439, 6399, 22257, 2782A, 1149T, 95753, 265F, 430A, 6304R, 18873O, 39109 #### [facility] Default [address] [place] [address] Erythrocyte distribution width (RBC) [Ratio] 13.2 % Normal 11.0-15.0 [facility] Comment on above: Order Comment: [facility] performed at: [employer], [facility], [address] , [address] [place] [address], [address] [place] [address], Medicaid Collection Specialist: Mike Larkin MD [facility] Date/Time: [facility] Results Received Date/Time: [facility] Reported Date/Time: Performed By: #### 5 3348W, 4439, 6399, 67095, 2782A, 1149T, 20984, 265F, 430A, 6304R, 47084T, 53105 #### [facility] [address] [place] [address] Hematocrit (Bld) [Volume fraction] 37.0 % Normal 35.0-45.0 [facility] Comment on above: Order Comment: [facility] performed at: [employer], [facility], [address] , [address] [place] [address], [address] [place] [address], Medicaid Collection Specialist: Mike Larkin MD [facility] Date/Time: [facility] Results Received Date/Time: [facility] Reported Date/Time: Performed By: #### 5 3348W, 4439, 6399, 58716, 2782A, 1149T, 60093, 265F, 430A, 6304R, 97974P, 57327 #### [facility] Default [address] [place] [address] Hemoglobin (Bld) [Mass/Vol] 12.5 g/dL Normal 11.7-15.5 [facility] Comment on above: Order Comment: [facility] performed at: [employer], [facility], [address] , [address] [place] [address], [phone], Medicaid Collection Specialist: Mike Larkin MD [facility] Date/Time: [facility] Results Received Date/Time: [facility] Reported Date/Time: Performed By: #### 5 3348W, 4439, 6399, 44329, 2782A, 1149T, 05197, 265F, 430A, 6304R, 43761B, 47124 #### [facility] Default [address] [place] [address] Lymphocytes (Bld) [#/Vol] 1.921 10*3/uL Normal 850-3900 [facility] Comment on above: Order Comment: [facility] performed at: [employer], [facility], [address] , [address] [place] [address], [address] [place] [address], Medicaid Collection Specialist: Mike Larkin MD [facility] Date/Time: [facility] Results Received Date/Time: [facility] Reported Date/Time: Performed By: #### 5 3348W, 4439, 6399, 72204, 2782A, 1149T, 31904, 265F, 430A, 6304R, 68680O, 96374 #### [facility] Default [address] [place] [address] Lymphocytes/100 WBC (Bld) 19.4 % Normal [facility] Comment on above: Order Comment: [facility] performed at: [employer], [facility], [address], [address] [place] [address], [address], Medicaid Collection Specialist: Mike Larkin MD [facility] Date/Time: [facility] Results Received Date/Time: [facility] Reported Date/Time: Performed By: #### 5 3348W, 4439, 6399, 88105, 2782A, 1149T, 38395, 265F, 430A, 6304R, 09907I, 11615 #### [facility] Default [address] [place] [address] MCH (RBC) [Entitic mass] 30.4 pg Normal 27.0-33.0 [facility] Comment on above: Order Comment: [facility] performed at: [employer], [facility], [address], [address] [place] [address], [address], Medicaid Collection Specialist: Mike Larkin MD [facility] Date/Time: [facility] Results Received Date/Time: [facility] Reported Date/Time: Performed By: #### 5 3348W, 4439, 6399, 40782, 2782A, 1149T, 85485, 265F, 430A, 6304R, 69229Q, 97129 #### [facility] Default [address] [place] [address] MCHC (RBC) [Mass/Vol] 33.8 g/dL Normal 32.0-36.0 [facility] Comment on above: Order Comment: [facility] performed at: [employer], [employer], [address], [address] [place] [address], [address], Medicaid Collection Specialist: Mike Larkin MD [facility] Date/Time: [facility] Results Received Date/Time: [facility] Reported Date/Time: Performed By: #### 5 3348W, 4439, 6399, 57412, 2782A, 1149T, 33089, 265F, 430A, 6304R, 80066C, 89821 #### [facility] Default [address] [place] [address] MCV (RBC) [Entitic vol] 90.0 fL Normal 80.0-100.0 [facility] Comment on above: Order Comment: [facility] performed at: [employer], [employer], [address], [address] [place] [address], [address], Medicaid Collection Specialist: Mike Larkin MD [facility] Date/Time: [facility] Results Received Date/Time: [facility] Reported Date/Time: Performed By: #### 5 3348W, 4439, 6399, 90649, 2782A, 1149T, 22061, 265F, 430A, 6304R, 75555G, 26098 #### [facility] Default [address] [place] [address] MONOABS 584 cells/uL Normal 200-[address] [facility] Comment on above: Order Comment: [facility] performed at: [employer], [employer], [address], [address] [place] [address], [phone], Medicaid Collection Specialist: Mike Larkin MD [facility] Date/Time: [facility] Results Received Date/Time: [facility] Reported Date/Time: Performed By: #### 5 3348W, 4439, 6399, 78268, 2782A, 1149T, 37406, 265F, 430A, 6304R, 92492K, 91285 #### [facility] Default [address] [place] [address] Monocytes/100 WBC (Bld) 5.9 % Normal [facility] Comment on above: Order Comment: [facility] performed at: [employer], [facility], [address] , [address] [place] [address], [address] [place] [address], Medicaid Collection Specialist: Mike Larkin MD [facility] Date/Time: [facility] Results Received Date/Time: [facility] Reported Date/Time: Performed By: #### 5 3348W, 4439, 6399, 68728, 2782A, 1149T, 86750, 265F, 430A, 6304R, 59511C, 44624 #### [facility] Default [address] [place] [address] Neutrophils (Bld) [#/Vol] 7.346 10*3/uL Normal 0984-8948 [facility] Comment on above: Order Comment: [facility] performed at: [employer], [facility], [address] , [address] [place] [address], [address] [place] [address], Medicaid Collection Specialist: Mike Larkin MD [facility] Date/Time: [facility] Results Received Date/Time: [facility] Reported Date/Time: Performed By: #### 5 3348W, 4439, 6399, 98367, 2782A, 1149T, 64302, 265F, 430A, 6304R, 45180R, 77135 #### [facility] Default [address] [place] [address] Neutrophils/100 WBC (Bld) 74.2 % Normal [facility] Comment on above: Order Comment: [facility] performed at: [employer], [facility], [address] , [address] [place] [address], [address] [place] [address], Medicaid Collection Specialist: Mike Larkin MD [facility] Date/Time: [facility] Results Received Date/Time: [facility] Reported Date/Time: Performed By: #### 5 3348W, 4439, 6399, 74617, 2782A, 1149T, 33657, 265F, 430A, 6304R, 41913T, 13175 #### [facility] Default [address] [place] [address] Platelet mean volume (Bld) [Entitic vol] 14.2 fL High 7.5-12.[address] [facility] Comment on above: Order Comment: [facility] performed at: [employer], [facility], [address] , [address] [place] [address], [address], Medicaid Collection Specialist: Mike Larkin MD [facility] Date/Time: [facility] Results Received Date/Time: [facility] Reported Date/Time: Performed By: #### 5 3348W, 4439, 6399, 14071, 2782A, 1149T, 73731, 265F, 430A, 6304R, 43886X, 75008 #### [facility] Default [address] [place] [address] Platelets (Bld) [#/Vol] 167 10*3/uL Normal 140-400 [facility] Comment on above: Order Comment: [facility] performed at: [employer], [facility], [address] , [address] [place] [address], [address], Medicaid Collection Specialist: Mike Larkin MD [facility] Date/Time: [facility] Results Received Date/Time: [facility] Reported Date/Time: Performed By: #### 5 3348W, 4439, 6399, 76521, 2782A, 1149T, 79660, 265F, 430A, 6304R, 25408H, 73028 #### [facility] Default [address] [place] [address] RBC (Bld) [#/Vol] 4.11 10*6/uL Normal 3.80-5.10 [facility] Comment on above: Order Comment: [facility] performed at: [employer], [facility], [address] , [address] [place] [address], [address] [place] [address], Medicaid Collection Specialist: Mike Larkin MD [facility] Date/Time: [facility] Results Received Date/Time: [facility] Reported Date/Time: Performed By: #### 5 3348W, 4439, 6399, 55783, 2782A, 1149T, 05157, 265F, 430A, 6304R, 87793B, 52495 #### [facility] Default [address] [place] [address] WBC (Bld) [#/Vol] 9.9 10*3/uL Normal 3.8-10.8 [facility] Comment on above: Order Comment: [facility] performed at: [employer], [facility], [address] , [address] [place] [address], [address] [place] [address], Medicaid Collection Specialist: Mike Larkin MD [facility] Date/Time: [facility] Results Received Date/Time: [facility] Reported Date/Time: Performed By: #### 5 3348W, 4439, 6399, 00066, 2782A, 1149T, 19556, 265F, 430A, 6304R, 62820D, 57458 #### [facility] Default [address] [place] [address] Q - CHLAMYDIA TRACHOMATIS/NE ISSERIA GONORRHOEAE RNA TMAon 08-16-2021 CHLAMYDIA TRACHOMATIS RNA, TMA, UROGENITAL Not detected Normal NOT DETECTED [facility] Comment on above: Order Comment: [facility] performed at: [facility] [employer] [facility], [address], [address] [place] [address], [address] [place] [address], Medicaid Collection Specialist: Mike Larkin MD [facility] Date/Time: [facility] Results Received Date/Time: [facility] Reported Date/Time: Performed By: #### 5 3348W, 4439, 6399, 23132, 2782A, 1149T, 86966, 265F, 430A, 6304R, 09133K, 54289 #### [facility] Default [address] [place] [address] COMMENT SEE NOTE Normal [facility] Comment on above: Order Comment: [facility] Testing performed at: [employer], [facility], [address] , [address] [place] [address], [address], Medicaid Collection Specialist: Mike Larkin MD [facility] Collection Date/Time: [facility] Results Received Date/Time: [facility] Reported Date/Time: Result Comment: The analytical performance characteristics of this assay, when used to test SurePath(TM) specimens have been determined by [facility]. The modifications have not been cleared or approved by the FDA. This assay has been validated pursuant to the CLIA regulations and is used for clinical purposes. For additional information, please refer to https://education.[employer]/faq/GVF934 (This link is being provided for information/ educational purposes only.) Performed By: #### 5 3348W, 4439, 6399, 79288, 2782A, 1149T, 31935, 265F, 430A, 6304R, 60225X, 55578 #### [facility] Default [address] [place] [address] Result Comment: See Note 1 Note 1 This drug testing is for medical treatment only. Analysis was performed as non-forensic testing and these results should be used only by healthcare providers to render diagnosis or treatment, or to monitor progress of medical conditions. For assistance with interpreting these drug results, please contact a [facility] Toxicology Specialist: [phone] ( ), M-F, 8am-6pm EST. NEISSERIA GONORRHOEAE RNA, TMA, UROGENITAL Not detected Normal NOT DETECTED [facility] Comment on above: Order Comment: [facility] Testing performed at: [employer] [facility], [address], [address] [place], [address], Medicaid Collection Specialist: Mike Larkin MD [facility] Collection Date/Time: [facility] Results Received Date/Time: [facility] Reported Date/Time: Performed By: #### 5 3348W, 4439, 6399, 00169, 2782A, 1149T, 98227, 265F, 430A, 6304R, 07627R, 92151 #### [facility] Default [address] [place] [address] Q - CULTURE,URINE,ROUTINEon 08-16-2021 CULTURE, URINE, ROUTINE SEE NOTE Normal [facility] Comment on above: Order Comment: [facility] Testing performed at: [employer] [facility], [address], [address] [place] [address], [address], Medicaid Collection Specialist: Mike Larkin MD [facility] Collection Date/Time: [facility] Results Received Date/Time: [facility] Reported Date/Time: Result Comment: CULT URE, URINE, ROUTINE Micro Number: [id number] Test Status: Final Specimen Source: Urine Specimen Quality: Adequate Result: Mixed genital chico isolated. These superficial bacteria are not indicative of a urinary tract infection. No further organism identification is warranted on this specimen. If clinically indicated, recollect clean-catch, mid-stream urine and transfer immediately to Urine Culture Transport Tube. Performed By: #### 5 3348W, 4439, 6399, 06353, 2782A, 1149T, 22668, 265F, 430A, 6304R, 93869X, 58369 #### [facility] Default [address] [place] [address] Q - DRUG TOX MONITORING 6 WI TH CONFIRMATION,URINEon 08-16-2021 Amphetamines Negative Normal <[address] [facility] Comment on above: Order Comment: [facility] Testing performed at: [employer] [facility], [address], [address] [place] [address], [address], Medicaid Collection Specialist: Mike Larkin MD [facility] Collection Date/Time: [facility] Results Received Date/Time: [facility] Reported Date/Time: Performed By: #### 5 3348W, 4439, 6399, 87572, 2782A, 1149T, 76551, 265F, 430A, 6304R, 07998Z, 73483 #### [facility] Default [address] [place] [address] Barbiturates Negative Normal <[address] [facility] Comment on above: Order Comment: [facility] Testing performed at: [employer], [facility], [address] [facility], [address] [place] [address], [address] [place] [address], Medicaid Collection Specialist: Mike Larkin MD [facility] Collection Date/Time: [facility] Results Received Date/Time: [facility] Reported Date/Time: Performed By: #### 5 3348W, 4439, 6399, 95120, 2782A, 1149T, 39819, 265F, 430A, 6304R, 61438O, 07638 #### [facility] Default [address] [place] [address] Benzodiazepines Negative Normal <100 [facility] Comment on above: Order Comment: [facility] Testing performed at: [employer], [facility], [address] , [address] [place] [address], [address] [place] [address], Medicaid Collection Specialist: Mike Larkin MD [facility] Collection Date/Time: [facility] Results Received Date/Time: [facility] Reported Date/Time: Performed By: #### 5 3348W, 4439, 6399, 57934, 2782A, 1149T, 44679, 265F, 430A, 6304R, 89699K, 74088 #### [facility] Default [address] [place] [address] Cocaine Metabolite Negative Normal <150 [facility] Comment on above: Order Comment: [facility] Testing performed at: [employer], [facility], [address] , [address] [place] [address], [address] [place] [address], Medicaid Collection Specialist: Mike Larkin MD [facility] Collection Date/Time: [facility] Results Received Date/Time: [facility] Reported Date/Time: Performed By: #### 5 3348W, 4439, 6399, 96696, 2782A, 1149T, 08078, 265F, 430A, 6304R, 65953K, 99305 #### [facility] Default [address] [place] [address] Marijuana Metabolite 20 Negative Normal <20 [facility] Comment on above: Order Comment: [facility] Testing performed at: [employer], [facility], [address] , [address] [place] [address], [address] [place] [address], Medicaid Collection Specialist: Mike Larkin MD [facility] Collection Date/Time: [facility] Results Received Date/Time: [facility] Reported Date/Time: Performed By: #### 5 3348W, 4439, 6399, 69212, 2782A, 1149T, 10175, 265F, 430A, 6304R, 31803Q, 09170 #### [facility] Default [address] [place] [address] Methadone Metabolite Negative Normal <100 [facility] Comment on above: Order Comment: [facility] Testing performed at: [employer], [facility], [address] , [address] [place] [address], [address] [place] [address], Medicaid Collection Specialist: Mike Larkin MD [facility] Collection Date/Time: [facility] Results Received Date/Time: [facility] Reported Date/Time: Performed By: #### 5 3348W, 4439, 6399, 53481, 2782A, 1149T, 82257, 265F, 430A, 6304R, 17904N, 36472 #### [facility] Default [address] [place] [address] Opiates Negative Normal <100 [facility] Comment on above: Order Comment: [facility] Testing performed at: [employer], [facility], [address] , [address] [place] [address], [address] [place] [address], Medicaid Collection Specialist: Mike Larkin MD [facility] Collection Date/Time: [facility] Results Received Date/Time: [facility] Reported Date/Time: Performed By: #### 5 3348W, 4439, 6399, 25850, 2782A, 1149T, 48977, 265F, 430A, 6304R, 85665M, 48168 #### [facility] Default [address] [place] [address] Oxycodone Negative Normal <100 [facility] Comment on above: Order Comment: [facility] Testing performed at: [employer], [facility], [address] [place] [address], [address] [place] [address], [address] [place] [address], Medicaid Collection Specialist: Mike Larkin MD [facility] Collection Date/Time: [facility] Results Received Date/Time: [facility] Reported Date/Time: Performed By: #### 5 3348W, 4439, 6399, 68281, 2782A, 1149T, 44196, 265F, 430A, 6304R, 86670I, 68895 #### [facility] Default [address] [place] [address] Phencyclidine Negative Normal <25 [facility] Comment on above: Order Comment: [facility] Testing performed at: [employer], [facility], [address] [place] [address], [address] [place] [address], [address], Medicaid Collection Specialist: Mike Larkin MD [facility] Collection Date/Time: [facility] Results Received Date/Time: [facility] Reported Date/Time: Performed By: #### 5 3348W, 4439, 6399, 01585, 2782A, 1149T, 35137, 265F, 430A, 6304R, 72078V, 95093 #### [facility] Default [address] [place] [address] Q - HEPATITIS B SURFACE ANTI GEN W/ REFLEXon 08-16-2021 HEPATITIS B SURFACE ANTIGEN Non-Reactive Normal NON-REACTIVE [facility] Comment on above: Order Comment: [facility] Testing performed at: [employer], [facility], [address] [place] [address], [address] [place] [address], [address] [place] [address], Medicaid Collection Specialist: Mike Larkin MD [facility] Collection Date/Time: [facility] Results Received Date/Time: [id number] [facility] Reported Date/Time: Performed By: #### 5 3348W, 4439, 6399, 62774, 2782A, 1149T, 56577, 265F, 430A, 6304R, 73401I, 55168 #### [facility] Default [address] [place] [address] Q - HIV 1/2 ANTIGEN/ANTIBODY ,FOURTH GENERATION W/RFLon 08-16-2021 HIV AG/AB, 4TH GEN Non-Reactive Normal NON-REACTIVE No rthern [facility] Comment on above: Order Comment: Quest performed at: [employer], [facility], [address] [place] [address], [address] [place] [address], [address], Medicaid Collection Specialist: Mike Larkin MDQuest Collection Date/Time: Results Received Date/Time: [id number] Reported Date/Time: Result Comment: HIV- 1 antigen and HIV-1/HIV-2 antibodies were not detected. There is no laboratory evidence of HIV infection. PLEASE NOTE: This information has been disclosed to you from records whose confidentiality may be protected by state law. If your state requires such protection, then the state law prohibits you from making any further disclosure of the information without the specific written consent of the person to whom it pertains, or as otherwise permitted by law. A general authorization for the release of medical or other information is NOT sufficient for this purpose. For additional information please refer to http://education.[employer].Artaic/faq/RVX762 (This link is being provided for informational/ educational purposes only.) The performance of this assay has not been clinically validated in patients less than 2 years old. Performed By: #### 5 3348W, 4439, 6399, 89938, 2782A, 1149T, 32310, 265F, 430A, 6304R, 09341L, 55793 ####[facility] [address] [place] [address] Q - RPR (MONITOR) W/RFX TITE Luan 08-16-2021 RPR (MONITOR) W/REFL TITER Non-Reactive Normal NON-REACTIVE [facility] Comment on above: Order Comment: Quest performed at: [employer], [facility], [address] , [address] [place] [address], [address] [place] [address], Medicaid Collection Specialist: Mike Lau Collection Date/Time: Results Received Date/Time: Reported Date/Time: Performed By: #### 5 3348W, 4439, 6399, 94285, 2782A, 1149T, 86411, 265F, 430A, 6304R, 24372C, 95151 ####[facility] [address] [place] [address] Q - URINALYSIS WITH REFLEX T O MICROSCOPICon 08-16-2021 Appearance (U) CLEAR Normal CLEAR [facility] Comment on above: Order Comment: Quest performed at: [employer], [facility], [address] , [address] [place] [address], [address] [place] [address], Medicaid Collection Specialist: Mike Lau Collection Date/Time: Results Received Date/Time: Reported Date/Time: Performed By: #### 5 3348W, 4439, 6399, 72905, 2782A, 1149T, 62187, 265F, 430A, 6304R, 82623M, 40337 ####[facility] [address] [place] [address] Bilirubin Ql (U) Negative Normal NEGATIVE [facility] Comment on above: Order Comment: Quest performed at: [employer], [facility], [address], [address] [place] [address], [address] [place] [address], Medicaid Collection Specialist: Mike Lau Collection Date/Time: [id number] Results Received Date/Time: Reported Date/Time: Performed By: #### 5 3348W, 4439, 6399, 15828, 2782A, 1149T, 39464, 265F, 430A, 6304R, 26388A, 78284 ####[facility] [address] [place] [address] Color (U) YELLOW Normal YELLOW [facility] Comment on above: Order Comment: Quest performed at: [employer], [facility], [address] [facility], [address] [place] [address], [address] [place] [address], Medicaid Collection Specialist: Mike Lau Collection Date/Time: Results Received Date/Time: Reported Date/Time: Performed By: #### 5 3348W, 4439, 6399, 77793, 2782A, 1149T, 15721, 265F, 430A, 6304R, 33704Q, 59676 ####[facility] [address] [place] [address] Glucose Ql (U) Negative Normal NEGATIVE [facility] Comment on above: Order Comment: Quest performed at: [employer], [facility], [address] [facility], [address] [place] [address], [address] [place] [address], Medicaid Collection Specialist: Mike Lau Collection Date/Time: Results Received Date/Time: Reported Date/Time: Performed By: #### 5 3348W, 4439, 6399, 44725, 2782A, 1149T, 51350, 265F, 430A, 6304R, 45314L, 18280 ####[facility] [address] [place] [address] Ketones Ql (U) Negative Normal NEGATIVE [facility] Comment on above: Order Comment: Quest performed at: [employer], [facility], [address] [facility], [address] [place] [address], [address] [place] [address], Medicaid Collection Specialist: Mike Lau Collection Date/Time: [id number] Results Received Date/Time: Reported Date/Time: Performed By: #### 5 3348W, 4439, 6399, 38635, 2782A, 1149T, 29983, 265F, 430A, 6304R, 32463V, 01446 ####[facility] [address] [place] [address] Leukocyte esterase Test strip Ql (U) Negative Normal NEGATIVE [facility] Comment on above: Order Comment: Quest performed at: [employer], [facility], [address] [facility], [address] [place] [address], [address], Medicaid Collection Specialist: Mike Lau Collection Date/Time: [id number] Results Received Date/Time: Reported Date/Time: Performed By: #### 5 3348W, 4439, 6399, 70387, 2782A, 1149T, 03350, 265F, 430A, 6304R, 32833G, 21601 ####[facility] [address] [place] [address] Nitrite Ql (U) Negative Normal NEGATIVE [facility] Comment on above: Order Comment: Quest performed at: [employer], [facility], [address] [facility], [address] [place] [address], [address], Medicaid Collection Specialist: Mike Lau Collection Date/Time: [id number] Results Received Date/Time: Reported Date/Time: Performed By: #### 5 3348W, 4439, 6399, 86922, 2782A, 1149T, 60567, 265F, 430A, 6304R, 29007Q, 71410 ####[facility] [address] [place] [address] OCCULT BLOOD Negative Normal NEGATIVE [facility] Comment on above: Order Comment: Quest performed at: [employer], [facility], [address] [facility], [address] [place] [address], [address] [place] [address], Medicaid Collection Specialist: Mike Lau Collection Date/Time: [id number] Results Received Date/Time: [id number] Reported Date/Time: Performed By: #### 5 3348W, 4439, 6399, 56135, 2782A, 1149T, 24159, 265F, 430A, 6304R, 05899J, 42851 ####[facility] [address] [place] [address] pH (U) 7.5 [pH] Normal 5.0-8.0 [facility] Comment on above: Order Comment: Quest performed at: [facility], [facility], [address] [facility], [address] [place] [address], [address] [place] [address], Medicaid Collection Specialist: Mike Lau Collection Date/Time: [id number] Results Received Date/Time: Reported Date/Time: Performed By: #### 5 3348W, 4439, 6399, 31094, 2782A, 1149T, 88565, 265F, 430A, 6304R, 59948J, 00033 ####[facility] [address] [place] [address] Protein Ql (U) Negative Normal NEGATIVE [facility] Specialist Comment on above: Order Comment: Quest performed at: [employer], [facility], [address] [place] [address], [address] [place] [address], [address] [place] [address], Medicaid Collection Specialist: Mike Lau Collection Date/Time: [id number] Results Received Date/Time: Reported Date/Time: Performed By: #### 5 3348W, 4439, 6399, 20498, 2782A, 1149T, 58504, 265F, 430A, 6304R, 67098G, 28417 ####[facility] [address] [place] [address] Specific gravity (U) [Rel density] 1.015 Normal 1.001-1.035 [facility] Comment on above: Order Comment: Quest performed at: [employer], [facility], [address] [facility], [address] [place] [address], [address] [place] [address], Medicaid Collection Specialist: Mike Lau Collection Date/Time: [id number] Results Received Date/Time: [id number] Reported Date/Time: Performed By: #### 5 3348W, 4439, 6399, 62006, 2782A, 1149T, 73168, 265F, 430A, 6304R, 54013O, 30450 ####[facility] [address] [place] [address] Q - VARICELLA-ZOSTER AB (IGG )on 08-16-2021 VARICELLA ZOSTER VIRUS ANTIBODY (IGG) 3113.00 index Normal [facility] io [facility] Comment on above: Order Comment: [facility] performed at: [employer], [facility], [address] [place] [address], [address] [place] [address], [address], Medicaid Collection Specialist: Mike Larkin MDQuest Collection Date/Time: [id number] Results Received Date/Time: [id number] Reported Date/Time: Result Comment: Inde x Interpretation --------- <135.00 Negative - Antibody not detected 135.00 - 164.99 Equivocal > or = 165.00 Positive - Antibody detected A positive result indicates that the patient has antibody to VZV but does not differentiate between an active or past infection. The clinical diagnosis must be interpreted in conjunction with the clinical signs and symptoms of the patient. This assay reliably measures immunity due to previous infection but may not be sensitive enough to detect antibodies induced by vaccination. Thus, a negative result in a vaccinated individual does not necessarily indicate susceptibility to VZV infection. A more sensitive test for vaccination-induced immunity is Varicella Zoster Virus Antibody Immunity Screen, ACIF. Performed By: #### 5 3348W, 4439, 6399, 05164, 2782A, 1149T, 04523, 265F, 430A, 6304R, 40781O, 11786 ####[facility] [address] [place] [address] RPR, External Labon 08-17-19 22 RPR, External Result Negative [facility] [employer] Phone: Rubella Titer, External Resu lton 08-16-2021 Rubella Titer, External Result immune [facility] [employer] Work Phone: US OB 1ST Trimesteron 2021 US OB 1ST Trimester FINDINGS: A single intrauterine gestational sac is present. Small hypoechogenic area, lower uterine segment, may represent a small subchorionic hemorrhage. Lower anterior uterine segment is an additional hypoechogenic ill-defined area, 5.0 x 1.0 x 1.5 cm, probable intramural fibroid. Small amount of pelvic fluid. A single pole is present. Normal heart rate at 151 beats per minute. Yolk sac also is seen. Current sonographic age is 7 weeks and 3 days based on the crown-rump length measurement of 1.2 cm. Based on this age, current estimated date of delivery is March 19, 2022. No pelvic fluid or adnexal mass present. Cervical length is 3.6 cm, closed. IMPRESSION: 1. Findings consistent with a live intrauterine gestation, current sonographic age of 7 weeks and 3 days resulting in an estimated date of delivery of March 19, 2022. 2. Small subchorionic lesions Report reported and signed by Eduardo Peres on 08/04/2021 0719 Normal [facility] HIV Screenon 01-29-2020 HIV Ag/Ab REACTIVE Abnormal NONREACTIVE [place], [place] Comment on above: Followup, confirmato ry CDC recommended testing is in progress. Results reported to the appropriate Health Department Interpretation and review of laboratory results Abnormal [place], [place] Hepatitis Panel, Acuteon HAV IgM IA Qn (S) NONREACTIVE NONREACTIVE [place], [place] Hep B Core Ab, IgM NONREACTIVE NONREACTIVE [place], [place] Hepatitis B Surface Ag NONREACTIVE NONREACTIVE [place], [place] Hepatitis C Ab NONREACTIVE NONREACTIVE [place], [place] Comment on above: The hepatitis C procedure used in our laboratory is a Chemiluminescent test specific for three recombinant HCV antigens. A negative anti-HCV result indicates that the antibodies to hepatitis C virus are not present at this time. Individuals with reactive anti-HCV should be considered infected and infectious until proven otherwise. Confirmation of all equivocal or reactive results is recommended by ordering HCV RNA by PCR. T. pallidum Abon 01-28-2020 T. pallidum, IgG NONREACTIVE NONREACTIVE [place], [place] Comment on above: T. pallidum antibodies are not detected. There is no serological evidence of infection with T. pallidum (early primary syphilis cannot be excluded). Retest in 2-4 weeks if syphilis is clinically suspect. Vital Signs Date Time Vital Sign Value Performing Clinician Faci lit 03-18-2022 07:54-0500 Body temperature 98.6 [degF] Macey Wong MD Work Phone: [facility] [employer] 03-18-2022 07:54-0500 Diastolic blood pressure 71 mm[Hg] [facility]acey [facility] MD [facility] 03-18-2022 07:54-0500 Heart rate 73 /min Macey Wong MD [facility] 03-18-2022 07:54-0500 Respiratory rate 16 /min Macey Wong MD [facility] [employer] 03-18-2022 07:54-0500 Systolic blood pressure 119 mm[Hg] Macey Wong MD [facility] 03-16-2022 10:06-0500 SaO2% (BldA) [Mass fraction] 99 % Macey Wong MD [facility] 03-16-2022 05:52-0500 Body height 165.1 cm Macey Wong MD [facility] 03-16-2022 05:52-0500 Body mass index (BMI) [Ratio] 31.62 kg/m2 Macey Wong MD Work Phone: [email or web address] [facility] 03-16-2022 05:52-0500 Body weight 86.18 kg Macey Wong MD Work Phone[facility] Encounters Encounter Date Encounter Type Care Provider Facility Start: 04-20-2023 End: 04-21-2023 ambulatory MARKO L FLORO Not Available Start: 04-17-2023 End: 04-18-2023 ambulatory MARKO L FLORO Not Available Start: 04-13-2023 End: 04-14-2023 ambulatory MARKO L FLORO Not Available Start: 04-06-2023 End: 04-07-2023 ambulatory MARKO L FLORO Not Available Start: 03-30-2023 End: 03-31-2023 ambulatory MARKO L FLORO Not Available Start: 03-28-2023 End: 03-29-2023 ambulatory MARKO L FLORO Not Available Start: 03-24-2023 End: 03-25-2023 ambulatory MARKO L FLORO Not Available Start: 03-16-2023 End: 03-17-2023 ambulatory MARKO L FLORO Not Available Start: 03-13-2023 End: 03-14-2023 ambulatory MARKO L FLORO Not Available Start: 03-09-2023 End: 03-10-2023 ambulatory MARKO L FLORO Not Available Start: 03-06-2023 End: 03-07-2023 ambulatory MARKO L FLORO Not Available Start: 02-28-2023 End: 03-01-2023 ambulatory MARKO L FLORO Not Available Start: 02-23-2023 End: 02-24-2023 ambulatory MARKO L FLORO Not Available Start: 02-13-2023 End: 02-14-2023 ambulatory MARKO L FLORO Not Available Start: 03-16-2022 End: 03-18-2022 Evaluation and management of inpatient Macey Wong MD Work Phone: [facility] Labor and Delivery Comment on above: S/P repeat low trans verse (Primary Dx); Viral upper respiratory tract infection Start: 03-15-2022 End: 03-15-2022 ambulatory MACEY WONG [facility] Start: 03-15-2022 End: 03-15-2022 Subsequent hospital visit by physician Macey Wong MD Work Phone: [facility] Labor and Delivery Start: 12-04-2020 End: 12-04-[address] TRISTIN CARRANZA Facility: Start: 01-28-2020 End: 01-28-2020 Subsequent hospital visit by physician [facility] Comment on above: Screen for STD (sexu ally transmitted disease); Encounter for well woman exam with routine gynecological exam; Screening for HPV (human papillomavirus) Procedures Date Procedure Procedure Detail Performing Clinician Start: 03-17-2022 Blood count hemoglobin Marko Herbert SEMICONDUCTOR TECHNICIAN - CN Work Phone: Start: 03-17-2022 RAMANDEEP Marko suazo SEMICONDUCTOR TECHNICIAN - CN Work Phone: Start: 03-16-2022 H/O: section S/P repe at low transverse Macey Wong MD Work Phone: Start: 03-16-2022 Drug tst prsmv instr mnt chem analyzers pr date Macey Wong MD Work Phone: Start: 03-15-2022 Blood count complete automated Macey Wong MD Work Phone: Start: 02-21-2022 GBS, EXTERNAL RESULT Hi corin Provider Start: 12-28-2021 ABO, EXTERNAL RESULT Hi adrianical Provider Start: 08-16-2021 Antibody rubella Comment on above: Order Comment: [facility] performed at: [facility], [facility], [address] [place] [address], [address] [place] [address], [id number], Medicaid Collection Specialist: Mike Larkin MDQuest Collection Date/Time: Results Received Date/Time: Reported Date/Time: Result Comment: Inde x Interpretation ----- <0.90 Not consistent with immunity 0.90-0.99 Equivocal > or = 1.00 Consistent with immunity The presence of rubella IgG antibody suggests immunization or past or current infection with rubella virus. Performed By: #### 5 [id number], 4439, 6399, 80069, 2782A, 1149T, 92136, 265F, 430A, 6304R, 00047W, 93300 ####[facility] [id number] [place] [address] Start: 08-16-2021 C. TRACHOMATIS, EXTE RNAL RESULT Historical Provider Start: 08-16-2021 HEPATITIS B, EXTERNA L RESULT Historical Provider Start: 08-16-2021 N. GONORRHOEAE, EXTE RNAL RESULT Historical Provider Start: 08-16-2021 RPR, EXTERNAL RESULT Hi storical Provider Start: 08-16-2021 RUBELLA TITER, EXTER NAL RESULT Historical Provider Start: 01-28-2020 Acute hepatitis panel K forden E [facility] Work Phone: Start: 01-28-2020 Antibody hiv-1&hiv-2 single result Neyda E [facility]Sol Work Phone: Start: 01-28-2020 T. PALLIDUM AB N[facility]daYo Work Phone: Start: 01-28-2020 Microscopic observat ion [Identifier] in Cervix by Cyto stain Macey Wong MD Work Phone: Plan of Treatment Date Care Activity Detail Author Start: 01-27-2025 Screening for malign ant neoplasm of cervix [facility] Start: 01-27-2023 Screening for malign ant neoplasm of cervix Pap smear [facility] Start: 03-16-2022 End: 03-16-2022 Admission to same day surgery center 03/16/2022 Surgery Obstetrics and Gynecology Macey Wong MD [address] [place] [address] SECTION MTHZ Labor and Delivery Comment on above: SECTION Start: 03-16-2022 End: 03-16-2022 delivery only SECTION Delivered by delivery following previous delivery 03/16/2022 7:[address] [facility] Start: 10-25-2021 Influenza vaccination Flu vaccine (# 1) [facility] Start: 02-02-2021 End: 02-02-2021 Office Visit 02/02/2021 Office Visit Obstetrics and Gynecology Neyda Wiggins, SEMICONDUCTOR TECHNICIAN - CNM [address] [place] [address] [facility] OBSTETRICS & GYNECOLOGY Start: 11-26-2019 Influenza vaccination Flu vaccine (# 1) [facility] [place], [place] Start: 2017 Diabetes screen Diabetes screen [facility] Start: 06-26-2003 Screening for malign ant neoplasm of cervix Cervical cancer screen [place], [place] Start: 2001 DTaP/Tdap/Td vaccine (1 - Tdap) DTaP/Tdap/Td vaccine (1 - Tdap) [facility] Start: 1997 HIV screening HIV screen [facility] [place], [place] Start: 1994 Depression Screen Depression Screen [facility] Start: 06-26-1983 Varicella vaccine (1 of 2 - 2-dose childhood series) Varicella vaccine (1 of 2 - 2-dose childhood series) [facility] Start: 1982 COVID-19 Vaccine (#1) COVID-19 Vacci ne (#1) [facility] End: 01-28-2020 C.trachomatis N.gonorrhoeae DNA, Thin Prep C.trachomatis N.gonorrhoeae DNA, Thin Prep Microbiology Routine Screen for STD (sexually transmitted disease) 1 Occurrences starting 01/28/2020 until 01/28/2020 [place], [place] Comment on above: 1 Occurrences starti ng 01/28/2020 until 01/28/2020 C.trachomatis N.gonorrhoeae DNA, Thin Prep C.trachomatis N.gonorrhoeae DNA, Thin Prep Microbiology Routine Screen for STD (sexually transmitted disease) 01/28/2020 6:29 PM [place], [place] End: 01-28-2020 Cytopathology procedure, preparation of smear, genital source PAP SMEAR Lab Routine Encounter for well woman exam with routine gynecological exam Screening for HPV (human papillomavirus) 1 Occurrences starting 01/28/2020 until 01/28/2020 [place], [place] Comment on above: 1 Occurrences starti ng 01/28/2020 until 01/28/2020 End: 01-28-2020 HERPES PROFILE HERPES PROFILE Lab Routine Screen for STD (sexually transmitted disease) 1 Occurrences starting 01/28/2020 until 01/28/2020 [place] Comment on above: 1 Occurrences starti ng 01/28/2020 until 01/28/2020 HERPES PROFILE HERPES PROFILE L ab Routine Screen for STD (sexually transmitted disease) 01/28/2020 12:12 PM [place] End: 01-28-2020 HIV 1/2 AB Multispot HIV 1/2 AB Multispot Lab Routine Once for 1 Occurrences starting 01/28/2020 until 01/28/2020 [facility] Comment on above: Once for 1 Occurrenc es starting 01/28/2020 until 01/28/2020 HIV 1/2 AB Multispot HIV 1/2 AB Multispot Lab Routine 01/28/2020 12:12 PM EST [facility] Oxygen therapy [Mini [facility] Data Set] Initiate Oxygen Therapy Protocol Respiratory Care Routine As Needed until discontinued starting 03/16/2022 [employer] Phone: Comment on above: As Needed until disc ontinued starting 03/16/2022 RHOGAM INJECTION ONLY RHOGAM INJ ECTION ONLY Blood Bank [employer] Label Print 03/16/2022 5:15 AM EST [employer] Phone: Spirometry panel Incentive hilario metry Respiratory Care Routine Every 2hr while awake until discontinued starting 03/16/2022 [employer] Phone: Comment on above: Every 2hr while awak e until discontinued starting 03/16/2022 Spirometry panel Incentive hilario metry RT Respiratory Care Routine As Needed until discontinued starting 03/18/2022 [employer] Phone: Comment on above: As Needed until disc ontinued starting 03/18/2022 End: 03-15-2022 TYPE AND SCREEN [employer] Phone: Comment on above: One Time for 1 Occur rences starting 03/15/2022 until 03/15/2022 Immunizations Immunization Date Immunization Notes Care Provider Fa cility 03-16-2022 diphtheria, tetanus toxoids and acellular pertussis vaccine, unspecified formulation Macey Wong MD Work Phone: [employer] Phone: 03-16-2022 measles, mumps and rubella virus vaccine Macey Wong MD Work Phone: [employer] Phone: 03-16-2022 RHO(Mariano) [facility] - IM Macey Wong MD [facility] Work Phone: Payers Date Payer Category Payer Unknown [id number] 2021 Unknown [id number] 2014 [facility] [id number] 2014-Present [address] [place] [address] [id number] 1982 Unknown [id number] [id number] .593 1982 Unknown [id number] 2.16.840.1.554545.3.579.2 .173 1982 Unknown [id number] 2.16.840.1.746803.3.579.2 .173 1982 Unknown [id number] 2.16.840.1.121052.3.579.2 .9 1982 Unknown [id number] 2.16.840.1.639784.3.579.2 .9 1982 Unknown [id number] 2.16.840.1.857117.3.579.2 .9 1982 Unknown [id number] 2.16.840.1.538394.3.579.2 .9 1982 Unknown [id number] 2.16.840.1.660237.3.579.2 .9 1982 Unknown [id number] 2.16.840.1.019792.3.579.2 .1258 1982 Unknown [id number] 2.16.840.1.047738.3.579.2 .9 1982 Unknown [id number] 2.16.840.1.679344.3.579.2 .9 1982 Unknown [id number] 2.16.840.1.786064.3.579.2 .9 1982 Unknown [id number] 2.16.840.1.805576.3.579.2 .9 1982 Unknown [id number] 2.16.840.1.547558.3.579.2 .1258 1982 Unknown [id number] 2.16.840.1.250134.3.579.2 .1258 1982 Unknown [id number] 2.16.840.1.327611.3.579.2 .1258 1982 Unknown [id number] 2.16.840.1.945248.3.579.2 .9 Social History Date Type Detail Facility Start: 01-28-2020 [facility] [place] Start: 01-28-2020 Tobacco use and exposure Never used [place], [place] Start: 01-28-2020 End: 03-16-2022 Alcohol intake Current drinker of alcohol (finding) [place], [place] Start: 01-28-2020 Alcohol Comment occ [place], [place] Start: 1982 Sex Assigned At Not on file [place] Start: 03-06-2022 End: 03-16-2022 Exposure to SARS-CoV-2 (event) Not sure [facility] Work Phone: Medication management note 01-04-2023 Note Date & Type Note Facility 01-04-2023 Note From: [employer] [id number] To: Janeth Taylor CNP Sent: January 04, 2023 8:46:58 AM CDT Subject: Medication Management Due: January 05, 2023 8:46:58 AM CDT Originally Prescribed Drug: Drug: progesterone (progesterone 50 mg/mL intramuscular solution), INJECT 1ML IM 2X WEEK DIRECTED Quantity: 10 mL Days Supply: 30 Refills: 3 Substitutions Allowed Notes from Pharmacy: Alternative Requested:CAN ONLY GET IN THE 500/10 MG VIALS [facility] Discharge instructions 03-18-2022 Discharge Instructions Note Date & Type Note Facility 03-18-2022 Hospital Discharg e instructions Nancie Reyes RN - 03/18/2022 1:11 PM EST Follow-up with your OB doctor as specified. [facility] OB Department phone: Sri Herbert, MSN, SEMICONDUCTOR TECHNICIAN, CNM [place] [address] DIET Eat a well balanced diet focusing on foods high in fiber and protein. Drink plenty of fluids especially water. To avoid constipation you may take a mild stool softener as recommended by your doctor or stem lead former. ACTIVITY Gradually increase your activity. Resume exercise regimen only after advice by your doctor or stem lead former. Avoid lifting anything heavier than a gallon of milk for SIX weeks. Avoid driving until your doctor or stem lead former has given their approval. Rise slowly from a lying to sitting and then a standing position. Climb stairs one at a time. Use caution when carrying your baby up and down the stairs. NO SEXUAL Activity for 4-6 weeks or until advised by your doctor; Nothing in vagina: intercourse, tampons, or douching. Be prepared to discuss family planning at your follow-up OB visit. You may feel tired or have a lack of energy. You may continue your vitamin to replenish nutrients post delivery. Nap when baby naps to catch up on sleep. EMOTIONS You may feel cheung, sad, teary, & overwhelmed. Contact your OB provider if you feel you may be showing signs of depression, or have thoughts of harming yourself or your infant. If infant will not stop crying, contact another adult for help or place infant in their crib on their back and take a break. NEVER shake your . BLEEDING Vaginal bleeding will decrease in amount over the next few weeks. You will notice that as your activity increases, your flow may increase. This is your body's way of telling you, you need to take things easier and rest more often. Call your care provider if you are saturating more than one maxi pad in an hour & resting does not help. BREAST CARE Take medications as recommended by your doctor or stem lead former for pain If you develop a warm, red, tender area on your breast or develop a fever contact your OB provider. For moms: If you become engorged, feeding may be more difficult or painful for 1-2 days. You may find it helpful to hand express some milk so that the infant can latch on more easily. While , continue to take your vitamins as directed by your doctor or stem lead former. Refer to the booklet in the folder/binder for more information. If you feel you need more assistance or have questions, please call Sveta Ely IBCLC, [employer] retailer sales consultant, at or the OB department to schedule an appointment or phone consultation. For more FREE help, visit the Support Group on Monday evenings at 7 pm in the OB department. For NON- moms: You may apply ice packs to your breasts over your bra for twenty minutes at a time for comfort. Avoid stimulation to your breasts, when showering allow the water to strike your back not your breasts. Wear a good fitting bra until your milk dries, such as a sports bra. INCISIONAL CARE If you have an acticoat dressing in place after your please leave your dressing in place for one week until you follow up with your provider. They will remove this dressing in the office when you see them. If your dressing starts to peel up or becomes soiled prior to your appointment with your provider, you may remove the dressing and clean your incision as directed below. Clean your incision in the shower with mild soap. After shower pat the incision area dry and allow the area open to air. If used, Steri-strips should be completely removed by 2 weeks but you may remove them as they become loose or soiled. If used, [place] should be removed by your care provider. If used/ordered, an abdominal binder may provide support for your incision. Use the heather-bottle after toileting until bleeding stops. SWELLING Try to keep your legs elevated when you are sitting. When lying down keep your legs elevated. When wearing stocking or socks, make sure they are not too tight. WHEN TO CALL THE DOCTOR If you have a temp of 100.6 or more. If your bleeding has increased and you are saturating a pad in an hour. Your abdomen is tender to touch. You are passing blood clots bigger than the size of a lemon. If you are experiencing extreme weakness or dizziness. If you are having flu-like symptoms such as achy muscles or joints. There is a foul smell or a green color to your vaginal bleeding. If you have pain that cannot be relieved. You have persistent burning or frequency with urination. Call if you have concerns about your well-being. You are unable to sleep, eat, or are having thoughts of harming yourself or your baby. You have swelling, bleeding, drainage, foul odor, redness, or warmth in/around your incision or stitches. You have a red, warm, tender area in your calf. documented in this encounter [facility] [employer] Work Phone: History of Present illness Narrative 03-18-2022 YAYO Murdock CNM - 03/18/2022 12:52 PM YAYO Marte CNM - 03/17/2022 8:23 AM Agnes Domingo RN - 03/16/2022 9:25 AM Agnes Domingo RN - 03/16/2022 9:00 AM EST Note Date & Type Note Facility 03-18-2022 History of Present illness Narrative C/S Labor and Delivery Post Progress Note Flatus:+ Bm: + Diet: Tolerating regular diet Ambulation: Ambulates OBJECTIVE: Vitals: VSS ABDOMEN: NT INCISION: C/D NSI GENITAL/URINARY: normal Cor: RRR no Murmurs Pulmonary: clear to auscultation anterior and posterior Extremities: no Clubbing cyanosis or ecchymosis DATA: ASSESSMENT: S/P C/S post op day # 2 PLAN: Home today Respiratory to eval and treat before leaving and instruct on IS C/S Labor and Delivery Post Progress Note SUBJECTIVE: pt doing well today states the pain ios getting uncomfortable but controlled Flatus:Present BM:no Diet: Tolerating regular diet Ambulation: Ambulateswithout difficulty OBJECTIVE: Vitals: BP (!) 122/58 Pulse 70 Temp 97.8 F (36.6 C) (Oral) Resp 16 Ht 5' 5 (1.651 m) Wt 190 lb (86.2 kg) SpO2 99% Unknown BMI 31.62 kg/m Patient Vitals for the past 24 hrs: BP Temp Temp src Pulse Resp SpO2 03/17/22 0806 (!) 122/58 97.8 F (36.6 C) Oral 70 16 -- 03/17/22 0308 111/71 97.7 F (36.5 C) Oral 60 16 -- 03/17/22 0113 118/60 98.4 F (36.9 C) Oral 66 18 -- 03/16/221999 (!) 116/58 98.5 F (36.9 C) Oral 70 18 -- 03/16/22 1615 125/60 97.5 F (36.4 C) Oral 67 16 -- 03/16/22 1424 122/69 99.1 F (37.3 C) Oral 69 16 -- 03/16/22 1116 (!) 109/58 -- -- 69 16 -- 03/16/22 1101 (!) 115/58 -- -- 59 18 -- 03/16/22 1046 118/62 -- -- 65 16 -- 03/16/22 1031 119/65 -- -- 63 16 -- 03/16/22 1016 113/65 -- -- 61 16 -- 03/16/22 1006 -- -- -- -- -- 99 % 03/16/22 1001 109/63 97.8 F (36.6 C) Oral 56 16 98 % 03/16/22 0956 -- -- -- -- -- 97 % 03/16/22 0953 112/65 -- -- 62 16 -- 03/16/22 0951 -- -- -- -- -- 97 % 03/16/22 0946 -- -- -- -- -- 97 % 03/16/22 0945 -- -- -- -- -- 97 % 03/16/22 0941 -- -- -- -- -- 97 % 03/16/22 0936 -- -- -- -- -- 97 % 03/16/22 0931 -- -- -- -- -- 99 % 03/16/22 0930 124/68 -- -- 60 18 99 % 03/16/22 0915 (!) 128/58 -- -- 65 18 100 % 03/16/22 0914 -- -- -- -- -- 98 % 03/16/22 0911 114/78 -- -- 60 16 -- 03/16/22 0909 -- -- -- -- -- 98 % 03/16/22 0904 121/60 -- -- 62 18 98 % 03/16/22 0900 125/80 97.8 F (36.6 C) Oral 60 16 91 % ABDOMEN: No scars, normal bowel sounds, soft, non-distended, non-tender, no masses palpated, no hepatosplenomegally INCISION: dressing in place, clean, dry, and intact GENITAL/URINARY: Uterus: Size normal, Contour normal Cor: RRR no Murmurs Pulmonary: clear to auscultation anterior and posterior Extremities: no Clubbing cyanosis or ecchymosis DATA: ASSESSMENT: Principal Problem: S/P repeat low transverse Active Problems: Term S/P C/S post op day # 1 PLAN: Iv lock Shower today Use abdominal binder Fiordaliza PANDEYM in room at this time reviewing POC. It Infrastructure Project Manager Note: I first assisted Dr Wong with repeat section as directed. I independently closed the SQ layer with 3-0 vicryl. I then independently closed the skin incision with 4-0 vicryl on a messi needle without difficulty. Hemostasis noted at completion of closure. Pt back in room at this time, PACU care begins. Patient off monitor at this time and taken to OR. Dr. Wong at bedside, consents signed. Instructor Military Science witnessed. Fiordaliza Herbert CNM at bedside. Updated on H&P needing to be done. CNM states she will complete now. Lilian Carrington CRNA at bedside reviewing consent form. Instructor Military Science witnessed. documented in this encounter [facility] Work Phone: Clinical Note 01-10-2022 Note Date & Type Note Facility 01-10-2022 Note FINDINGS: Comparison made with prior ultrasound evaluation November 02, 2021. A single, live intrauterine is present with normal cardiac rate of 129 beats per minute. Normal activity and amniotic fluid volume. Amniotic fluid index is 19 cm. Morphology is grossly normal. The cervix is long and closed, 4.8 cm. The placenta is anterior, not associated with the cervical os. The current sonographic age is 31 weeks and 0 days, based on the following measurements: BPD 7.8 cm (31 weeks, 1 day) Head Circumference 29.2 cm (32 weeks, 1 day) Abdominal Circumference 26.9 cm (31 weeks, 0 days) Femur Length 5.7 cm (29 weeks, 6 days) Presentation Cephalic Placenta Anterior Grade I Weight (g) by [id number] % * These measurements result in an estimated date of delivery of March 14, 2022. The current estimated weight is 1637 grams (3 pounds, 10 ounces). IMPRESSION: 1. Single, live intrauterine , current sonographic age of 31 weeks and 0 days, with an estimated date of delivery of March 14, 2022 (prior GOLDIE March 19, 2022) 2. Current estimated weight 1637 grams (3 pounds, 10 ounces) * Estimated Weight (g) by Percentile is based upon an accurate estimated age based on last menstrual period. Report reported and signed by Eduardo Peres on 01/11/2022 0642 [facility] Clinical Note 11-02-2021 Note Date & Type Note Facility 11-02-2021 Note FINDINGS: Comparison made with prior ultrasound evaluation August 31, 2021. A single, live intrauterine is present with normal cardiac rate of 145 beats per minute. Normal activity and amniotic fluid volume. Amniotic fluid index is 17 cm. Morphology is grossly normal. The cervix is long and closed, 3.8 cm. The placenta is anterior, not associated with the cervical os. The current sonographic age is 20 weeks and 3 days, based on the following measurements: BPD 4.6 cm (20 weeks, 0 days) Head Circumference 18.0 cm (20 weeks, 3 days) Abdominal Circumference 15.5 cm (20 weeks, 5 days) Femur Length 3.4 cm (20 weeks, 5 days) Presentation Breech Placenta Anterior fundal Grade I Weight (g) by [id number] % * These measurements result in an estimated date of delivery of March 19, 2022. The current estimated weight is 368 grams (0 pounds, 13 ounces). IMPRESSION: 1. Single, live intrauterine , current sonographic age of 20 weeks and 3 days, with an estimated date of delivery of March 19, 2022 (prior GOLDIE March 15, 2022) 2. Current estimated weight 368 grams (0 pounds, 13 ounces) * Estimated Weight (g) by Percentile is based upon an accurate estimated age based on last menstrual period. Report reported and signed by Eduardo Peres on 11/03/2021 0712 [facility] Clinical Note 12-04-2020 Note Date & Type Note Facility 12-04-2020 Note PROCEDURE: XR CHEST 1 V REASON FOR STUDY/CLINICAL HISTORY: SHORTNESS OF BREATH. COMPARISON STUDY: None available at time of dictation. TECHNIQUE: Single view(s) of the chest presented for interpretation. FINDINGS: No acute cardiopulmonary process. Very slight areas of bibasilar atelectasis and very subtle central bronchial thickening on the right greater than the left. Normal cardiomediastinal silhouette. No focal consolidation, edema, or effusion. No pneumothorax. No acute appearing focal significant bony abnormality. IMPRESSION: Very slight atelectasis at the lung bases. No other acute localizing pulmonary pathology. Electronically authenticated by: REGAN BATES Date: 2020-12-04 21:27 [facility] Evaluation note Note Date & Type Note Facility Evaluation note Diagnosis S/P repeat low transverse - Primary delivery, without mention of indication, unspecified as to episode of care S/P repeat low transverse delivery, without mention of indication, unspecified as to episode of care Viral upper respiratory tract infection Acute upper respiratory infections of unspecified site Term documented in this encounter [facility] [employer] Work Phone: Assessments Diagnosis Screen for STD (sexually transmitted disease) Screening examination for venereal disease Encounter for well woman exam with routine gynecological exam Screening for HPV (human papillomavirus) Special screening examination for human papillomavirus (HPV) Summary Purpose Family History No Family History Records FoundNo Family History Records FoundNo Family History Records FoundNo Family History Records FoundNo Family History Records Found Advance Directives No Advanced Directives Records FoundLatest Code Status on File Code Status Date Activated Date Inactivated Comments Full Code 03/16/2022 9:18 AM Full Code 03/16/2022 5:00 AM 03/16/2022 9:18 AM Additional Source Comments INFORMATION SOURCE (unrecogn ized section and content) DATE CREATED AUTHOR 12/08/2020 [facility] DATE CREATED AUTHOR AUTHOR'S ORGANIZ ATION 01/24/[address] [facility] dical Specialist DATE CREATED AUTHOR AUTHOR'S ORGANIZ ATION 03/22/2022 [facility] DATE CREATED AUTHOR AUTHOR'S ORGANIZ ATION 02/24/2023 [facility] DATE CREATED AUTHOR AUTHOR'S ORGANIZ ATION 04/24/[address] [facility] dical Specialists [facility] Teams (unrecognized sec tion and content) Wafer Machine Operator Relationship Specialty Start Date End Date Shanique Mark MD [address] [place] [address] PCP - General Family Medicine 03/15/22 Wafer Machine Operator Relationship Specialty Start Date End Date Shanique Mark MD [address] [place] [address] PCP - General Family Medicine 03/15/22 Reason for Visit (unrecogniz ed section and content) Reason Comments Scheduled Specialty Diagnoses / Procedures Referred By Contac t Referred To Contact Diagnoses Delivered by delivery following previous delivery Term Repeat 39 weeks. Gopi TIM to periodontal assistant. Procedures DC DELIVERY ONLY SECTION Marko Herbert APRN - CNM [address] [place] [address] [facility] [address] [place] [address] Referral ID Status Reason Start Date Expiration Date Visits Re quested Visits Authorized [id number] 1 1 Ordered Prescriptions (unrec ognized section and content) Prescription Sig Dispensed Refills Start Date End Da te docusate sodium (COLACE, DULCOLAX) 100 MG CAPS Take 100 mg by mouth 2 times daily as needed for Constipation 30 capsule 1 03/18/2022 ibuprofen (ADVIL;MOTRIN) 800 MG tablet Take 1 tablet by mouth every 8 hours as needed for Pain 90 tablet 1 03/18/2022 03/21/2022 oxyCODONE (ROXICODONE) 5 MG immediate release tabletIndications:S/P repeat low transverse Take 1 tablet by mouth every 6 hours as needed for Pain for up to 3 days. Max Daily Amount: 20 mg 12 tablet 0 03/18/2022 03/21/2022 Scheduled Active and Recently Administ ered Medications (unrecognized section and content) Medication Order 03/16/2022 03/17/2022 03/18/2022 albuterol (PROVENTIL) nebulizer solution 2.5 mg (COMPLETED) 2.5 mg, Nebulization, ONCE, 1 dose, On Mon03/18/22 at 1300, Initiate RT Bronchodilator Protocol: Yes - Inpatient Protocol 1259 (Given - Provider: Eitan Kelly RCP) cefOXitin (MEFOXIN) 2000 mg in dextrose 5% 50 mL (mini-bag) (COMPLETED) 2,000 mg, IntraVENous, LOAN TELLER TO O.R., 1 dose, On Mon03/16/22 at 0530, Antimicrobial Indications: Surgical Prophylaxis, Administer within 1 hour of incision., Pre-op (day of surgery) 0728 (New Bag - Provider: Marti Domingo RN)0800 (Stopped - Provider: Marti Domingo RN) citric acid-sodium citrate (BICITRA) solution 30 mL (COMPLETED) 30 mL, Oral, ONCE, 1 dose, On Mon03/16/22 at 0530, Give prior to epidural placement., Pre-op (day of surgery) 0648 (Given - Provider: Shanda Montoya RN) docusate sodium (COLACE) capsule 100 mg 100 mg, Oral, 2 TIMES DAILY, First dose on Mon03/16/22 at 0945, Until Discontinued, Do not crush or break., 933 (Not Given - Provider: Marti Domingo RN - Reason: Contraindicated)2047 (Not Given - Provider: Dennis Cope RN - Reason: Patient/family refused) 1135 (Not Given - Provider: Best Maddox RN - Reason: Patient/family refused)194 (Given - Provider: Jemima Ramirez RN) 09 (Given - Provider: Nancie Reyes RN)2100 (Due) enoxaparin (LOVENOX) injection 40 mg 40 mg, SubCUTAneous, EVERY 24 HOURS, First dose (after last modification) on Mon03/16/22 at 2100, Until Discontinued, Indication of Use: Prophylaxis-DVT/PE, 2116 (Given - Provider: Dennis Cope RN) 2144 (Given - Provider: Jemima Ramirez RN) 2100 (Due) famotidine (PEPCID) 20 mg in sodium chloride (PF) 0.9 % 10 mL injection (COMPLETED) 20 mg, IntraVENous, ONCE, 1 dose, On Mon03/16/22 at 0530, Give 60 minutes before surgery., Pre-op (day of surgery) 0647 (Given - Provider: Shanda Montoya, PANCHO) guaiFENesin-dextromethorp gutierrez (ROBITUSSIN DM) 100-10 MG/5ML syrup 10 mL (COMPLETED) 10 mL, Oral, ONCE, 1 dose, On Mon03/18/22 at 1315 1320 (Given - Provider: Nancie Reyes RN) ketorolac (TORADOL) injection 30 mg (CANCELED) Ketorolac is contraindicated in patients with advanced renal impairment and in patients at risk of renal failure due to volume depletion. For 65 years of age and older OR weight less than 50 kg, use 15 mg IV every 6 hours; MAX dose: 60 mg/day. Dose greater than 30 mg must be administered via intramuscular route. Do not administer for more than 5 days., 30 mg, IntraVENous, EVERY 6 HOURS, 5 doses, First dose on Mon03/16/22 at 1445, Last dose on Mon03/17/22 at 1445, Give in addition to any other pain medication ordered at same time for any pain indication. Discontinue when able to take PO ibuprofen. First dose given in OR - please calculate second dose off of first dose give, 1413 (Given - Provider: Marti Domingo RN)2053 (Given - Provider: Dennis Cope RN) 0417 (Given - Provider: Dennis Cope RN)1133 (Not Given - Provider: Best Maddox RN - Reason: Other - Comment: saline lock not flushing) lactated ringers bolus (COMPLETED) 1,000 mL, IntraVENous, at 1,000 mL/hr, Administer over 1 Hours, ONCE, On Mon03/16/22 at 0530, For 1 dose, Labor and Delivery. Administer bolus one hour prior to surgery., Labor and Delivery (Signed and Held) 0545 (New Bag - Provider: Shanda Montoya RN)0649 (Stopped - Provider: Shanda Montoya, PANCHO) metoclopramide (REGLAN) injection 10 mg (COMPLETED) 10 mg, IntraVENous, ONCE, 1 dose, On Mon03/16/22 at 0530, Give 60 minutes before surgery., Pre-op (day of surgery) 0648 (Given - Provider: Shanda Montoya, PANCHO) vitamin 27-1 MG tablet 1 tablet 1 tablet, Oral, DAILY, First dose on Mon03/16/22 at 0945, Until Discontinued, Begin when normal bowel activity resumes., 0934 (Not Given - Provider: Marti Domingo RN - Reason: Contraindicated) 1058 (Given - Provider: Trixie Pérez, PANCHO) 0905 (Given - Provider: Nancie Reyes, PANCHO) rho(D) immune globulin (HYPERRHO S/D) injection 300 mcg (COMPLETED) 300 mcg, IntraMUSCular, ONCE, 1 dose, On Mon03/16/22 at 0945, 0738 (Given - Provider: Jemima Ramirez RN) sodium chloride flush 0.9 % injection 5-40 mL 5-40 mL, IntraVENous, EVERY 12 HOURS SCHEDULED (2 times per day), First dose on Mon03/16/22 at 0945, Until Discontinued, For Line Patency: Peripheral IV = 5 mL; Midline or Central Line = 10 mL/lumen. If following IV push medication, administer flush at same rate as the IV push. Flush volume is determined by type of infusion therapy being given. For non-viscous solutions use: Peripheral IV = 5 mL Midline or Central Line = 10 mL/lumen For viscous solutions (i.e. blood components, parenteral nutrition, contrast media, or after obtaining blood sample) use: Peripheral IV = 10 mL Midline or Central Line = 20 mL/lumen, 0933 (Not Given - Provider: Marti Domingo RN - Reason: IV Fluid Infusing) 0203 (Not Given - Provider: Dennis Cope RN - Reason: IV Fluid Infusing)1134 (Not Given - Provider: Best Maddox RN - Reason: Other - Comment: Saline lock not flushing)2100 (Due) 0903 (Not Given - Provider: Nancie Reyes RN - Reason: Loss of IV access)2100 (Due) vuzopax-juqlmp-lyygk pertussis (BOOSTRIX) injection 0.5 mL 0.5 mL, IntraMUSCular, PRIOR TO DISCHARGE, 1 dose, Starting on Mon03/16/22 at 0918, Until Discontinued, If not previously administered during at 27-36 weeks as recommended by CDC., Continuous Medication Order 03/16/2022 03/17/2022 03/18/2022 lactated ringers infusion (CANCELED) IntraVENous, at 125 mL/hr, CONTINUOUS, Starting on Mon03/16/22 at 0530, Labor and Delivery (Signed and Held) 0647 (New Bag - Provider: Shanda Montoya RN) lactated ringers infusion IntraVENous, at 125 mL/hr, CONTINUOUS, Starting on Mon03/16/22 at 0945, 0905 (New Bag - Provider: Marti Domingo RN)1651 (New Bag - Provider: Amisha Deutsch RN) 0100 (New Bag - Provider: Jemima Ramirez, PANCHO) PRN Medication Order 03/16/2022 03/17/2022 03/18/2022 0.9 % sodium chloride infusion IntraVENous, at 5-250 mL/hr, PRN, if patient receiving piggyback infusions and maintenance fluids are not ordered OR KVO fluids to protect IV site / prevent frequent line interruptions/ long duration, Starting on Mon03/16/22 at 0918, For piggyback infusion, administer at same rate as piggyback for a total of 25 mL. Enter 25 mL into dose field and piggyback rate into rate field of order. If piggyback is infusing at a rate less than 100 mL/hr, enter 25 mL into dose field and 100 mL/hr into rate field of order. For KVO fluids, enter rate of 20 mL/hr or less into rate field of order., acetaminophen (TYLENOL) tablet 1,000 mg 1,000 mg, Oral, EVERY 8 HOURS PRN, Starting on 03/16/22 at 0918, Until Discontinued, Other, Pain (1-10), Give in addition to any other pain medication ordered at same time for any pain indication. Maximum dose of acetaminophen is 4000mg from all sources in 24 hours. Alternate ibuprofen and acetaminophen every 4 hours., 1712 (Given - Provider: Amisha Deutsch RN) 0058 (Given - Provider: Jemima Ramirez RN)1407 (Given - Provider: Amisha Deutsch, PANCHO)2231 (Given - Provider: Jemima Ramirez RN) 0631 (Given - Provider: Jemima Ramirez RN) Benzocaine-Menthol (CEPACOL) 1 lozenge 1 lozenge, Oral, EVERY 2 HOURS PRN, Starting on Em 03/17/22 at 1816, Until Discontinued, Sore Throat carboprost (HEMABATE) injection 250 mcg 250 mcg, IntraMUSCular, PRN, Starting on Mon03/16/22 at 0918, Until Discontinued, bleeding, May repeat every 15 minutes up to a cumulative maximum dose of 1000 mcg, at physician's request., Post-op diphenhydrAMINE (BENADRYL) injection 25 mg 25 mg, IntraVENous, EVERY 6 HOURS PRN, Starting on Mon03/16/22 at 0918, Until Discontinued, Itching, Hives, ibuprofen (ADVIL;MOTRIN) tablet 800 mg 800 mg, Oral, EVERY 8 HOURS PRN, Starting on Em 03/17/22 at 0800, Until 03/21/22 at 0759, Other, (Pain 1-10), Give in addition to any other pain medication ordered at same time for any pain indication. After 5 doses of toradol, discontinue Toradol and begin ibuprofen 8 hours after the final dose of Toradol. Alternate ibuprofen and acetaminophen every 4 hours., , 1139 (Given - Provider: Best Maddox RN)1942 (Given - Provider: Jemima Ramirez RN) 0333 (Given - Provider: Jemima Ramirez RN)1123 (Given - Provider: Nancie Reyes RN) lansinoh lanolin ointment Topical, EVERY 1 HOUR PRN, Dry Skin, nipple discomfort, Starting on Mon03/16/22 at 0918, Post-op 1151 (Given - Provider: RANDALL Boykin - Comment: nipples) measles, mumps & rubella vaccine (MMR) injection 0.5 mL 0.5 mL, SubCUTAneous, PRN, 1 dose, Starting on Mon03/16/22 at 0918, Until Discontinued, if non immune or equivical, methylergonovine (METHERGINE) injection 200 mcg 200 mcg, IntraMUSCular, PRN, Starting on Mon03/16/22 at 0918, Until Discontinued, Bleeding, PRN for post- hemorrhage, if not hypertensive., miSOPROStol (CYTOTEC) tablet 800 mcg 800 mcg, Rectal, PRN, 1 dose, Starting on Mon03/16/22 at 0918, Until Discontinued, Post- Hemorrhage, Notify Physician prior to administration., Post-op nalbuphine (NUBAIN) injection 10 mg 10 mg, IntraVENous, EVERY 4 HOURS PRN, Starting on Mon03/16/22 at 0918, Until Discontinued, or itching, Post-op naloxone (NARCAN) injection 0.4 mg 0.4 mg, IntraVENous, PRN, Starting on Mon03/16/22 at 0918, Until Discontinued, Opioid Reversal, Post-op ondansetron (ZOFRAN) injection 4 mg 4 mg, IntraVENous, EVERY 6 HOURS PRN, Starting on Mon03/16/22 at 0918, Until Discontinued, Nausea, nausea, oxyCODONE (ROXICODONE) immediate release tablet 10 mg(Linked Group 1) 10 mg, Oral, EVERY 4 HOURS PRN, Starting on Mon03/16/22 at 0918, Until Discontinued, Pain Severe (7-10), 0632 (See Alternative - Provider: Jemima Ramirez RN)1058 (See Alternative - Provider: Trixie Pérez RN)1654 (See Alternative - Provider: Best Maddox RN)1749 (See Alternative - Provider: Best Maddox RN)2146 (See Alternative - Provider: Jemima Ramirez RN) 0333 (See Alternative - Provider: Jemima Ramirez RN)0734 (See Alternative - Provider: Jemima Ramirez RN)1123 (See Alternative - Provider: Nancie Reyes RN) oxyCODONE (ROXICODONE) immediate release tablet 5 mg(Linked Group 1) 5 mg, Oral, EVERY 4 HOURS PRN, Starting on Mon03/16/22 at 0918, Until Discontinued, Pain Moderate (4-6), 0632 (Given - Provider: Jemima Ramirez RN)1058 (Given - Provider: Trixie Pérez RN)1654 (Given - Provider: Best Maddox RN)1749 (Given - Provider: Best Maddox RN)2146 (Given - Provider: Jemima Ramirez RN) 0333 (Given - Provider: Jemima Ramirez RN)0734 (Given - Provider: Jemima Ramirez RN)1123 (Given - Provider: Nancie Reyes RN) oxytocin (PITOCIN) 30 units in 500 mL infusion (CANCELED) 87.3 pratik-units/min (87.3 mL/hr), IntraVENous, CONTINUOUS PRN, Starting on Mon03/16/22 at 0500, Until Mon03/16/22 at 0918, Bleeding, Post- use ONLY after delivery of baby/ excessive bleeding/ uterine atony. Following Bolus from bag administration, reduce the rate to 87.3 mL/hr and administer remaining 20 units over 229 minutes to complete the infusion of 30 units in 500 mL. For 2 bags of pitocin, Multiphase Phase of Care 801 (New Bag - Provider: Gabriela Carrington, SEMICONDUCTOR TECHNICIAN - HOUSE PARENT)904 (Rate/Dose Verify - Provider: Marti Domingo RN) sennosides-docusate sodium (SENOKOT-S) 8.6-50 MG tablet 1 tablet 1 tablet, Oral, DAILY PRN, Starting on Mon03/16/22 at 0918, Until Discontinued, Constipation, simethicone (MYLICON) chewable tablet 80 mg 80 mg, Oral, EVERY 6 HOURS PRN, Starting on Mon03/16/22 at 0918, Until Discontinued, Cramping, Flatulence, sodium chloride flush 0.9 % injection 5-40 mL 5-40 mL, IntraVENous, PRN, Starting on Mon03/16/22 at 0918, Until Discontinued, Line Care, After every IV line use, For Line Patency: Peripheral IV = 5 mL; Midline or Central Line = 10 mL/lumen. If following IV push medication, administer flush at same rate as the IV push. Flush volume is determined by type of infusion therapy being given. For non-viscous solutions use: Peripheral IV = 5 mL Midline or Central Line = 10 mL/lumen For viscous solutions (i.e. blood components, parenteral nutrition, contrast media, or after obtaining blood sample) use: Peripheral IV = 10 mL Midline or Central Line = 20 mL/lumen, Linked Groups Order Group 1: oxyCODONE (ROXICODONE) immediate release tablet 5 mgJump to med 5 mg, Oral, EVERY 4 HOURS PRN, Starting on Mon03/16/22 at 0918, Until Discontinued, Pain Moderate (4-6), Or oxyCODONE (ROXICODONE) immediate release tablet 10 mgJump to med 10 mg, Oral, EVERY 4 HOURS PRN, Starting on Mon03/16/22 at 0918, Until Discontinued, Pain Severe (7-10), FOR RECORDS PERTAINING TO PATIENTS WHO ARE OR HAVE BEEN ENROLLED IN A CHEMICAL DEPENDENCY/SUBSTANCEABUSE PROGRAM, SOME INFORMATION MAY BE OMITTED. This clinical summary was aggregated from multiple sources. Caution should be exercised in using it in the provision of clinical care. This summary normalizes information from multiple sources, and as a consequence, information in this document may materially change the coding, format and clinical context of patient data. In addition, data may be omitted in some cases. CLINICAL DECISIONS SHOULD BE BASED ON THE PRIMARY CLINICAL RECORDS. [facility]. provides no warranty or guarantee of the accuracy or completeness of information in this document.
[2023-04-25] MEDS: LACTATED RINGER'S SOLUTION 1,000 ML 125 ML IV (06:18)
[2023-04-25] MEDS: CITRIC ACID/SODIUM CITRATE 30 ML SOLUTION ORACIT SHOHL'S SOLN PO (06:18)
[2023-04-25] MEDS: FAMOTIDINE/PF 20 MG/2 ML VIAL IV (06:19)
[2023-04-25] MEDS: METOCLOPRAMIDE HCL 10 MG/2 ML VIAL IVP (06:19)
[2023-04-25 06:32] LABS: Bilirubin Urine NEGATIVE (NEGATIVE); Blood Urine NEGATIVE (NEGATIVE); Clarity Urine CLEAR (CLEAR); Color Urine LT. YELLOW (YELLOW); Glucose Urine UA NEGATIVE (NEGATIVE); Ketones Urine NEGATIVE (NEGATIVE); Leukocyte Esterase Urine TRACE (NEGATIVE); Nitrite Urine NEGATIVE (NEGATIVE); Protein Urine NEGATIVE (NEG/TRACE); Specific Gravity Urine 1.015 (1.005-1.025); Urobilinogen Urine 0.2 EU/dL (0.2-1.0); pH Urine 6.5 (5.0-9.0)
[2023-04-25 06:34] LABS: Basophils Absolute Auto 0.1 10^3/uL (0.0-0.1); Basophils Percent Auto 0.6 % (0.2-2.0); Eosinophils Absolute Auto 0.1 10^3/uL (0.0-0.7); Eosinophils Percent Auto 1.2 % (0.9-7.0); Hematocrit 36.5 % (36.0-48.0); Hemoglobin 12.3 g/dL (12.0-16.0); Immature Granulocytes Abs Auto 0.11 10^3/uL (0.00-0.03); Lymphocytes Absolute Auto 2.6 10^3/uL (1.2-3.8); Lymphocytes Percent Auto 24.6 % (20.5-60.0); Mean Corpuscular HGB Conc 33.7 g/dL (29.9-35.2); Mean Corpuscular Hemoglobin 30.8 pg (26.7-34.0); Mean Corpuscular Volume 91.5 fL (81.0-99.0); Mean Platelet Volume 13.5 fL (9.5-13.5); Monocytes Absolute Auto 0.6 10^3/uL (0.3-0.8); Monocytes Percent Auto 5.9 % (1.7-12.0); Neutrophils Absolute Auto 7.1 10^3/uL (1.4-6.5); Neutrophils Percent Auto 66.7 % (43.0-75.0); Platelet Count 138 10^3/uL (150-450); Red Blood Count 3.99 10^6/uL (4.20-5.40); Red Cell Distribution Width 14.3 % (11.0-15.0); White Blood Count 10.6 10^3/uL (4.0-11.0)
[2023-04-25 06:44] LABS: Amphetamine Screen Urine NEGATIVE (NEGATIVE); Barbiturates Screen Urine NEGATIVE (NEGATIVE); Benzodiazepines Screen Urine NEGATIVE (NEGATIVE); Buprenorphine Screen Urine NEGATIVE (NEGATIVE); Cannabinoid Screen Urine NEGATIVE (NEGATIVE); Cocaine Screen Urine NEGATIVE (NEGATIVE); Methadone Screen Urine NEGATIVE (NEGATIVE); Methamphetamines Screen Urine NEGATIVE (NEGATIVE); Opiate Screen Urine NEGATIVE (NEGATIVE); Oxycodone Screen Urine NEGATIVE (NEGATIVE); Phencyclidine Screen Urine NEGATIVE (NEGATIVE); Tricyclic Antidepressant Urine NEGATIVE (NEGATIVE)
[2023-04-25 06:54] LABS: Bacteria Urine TRACE #/HPF (NONE SEEN); Cast Seen? NONE SEEN #/LPF (NONE SEEN); Crystals Seen? None Seen #/HPF (None Seen); Mucus Urine NONE SEEN (NONE SEEN); RBC Urine NONE SEEN #/HPF (0-2); Squamous Epithelial Cell Urine MANY #/LPF (NONE/RARE); WBC Urine 0-2 #/HPF (NONE SEEN)
[2023-04-25] MEDS: CEFAZOLIN SODIUM/DEXTROSE,ISO 2 GM/50 ML PIGGYBACK IV ×2 (07:36→14:10)
[2023-04-25] MEDS: LACTATED RINGER'S SOLUTION 1,000 ML 50 ML IV (08:13)
--- NOTE | 2023-04-25 08:37 | PM.ONB ---
Brief Operative Note Date of procedure: 04/25/23 Pre-op diagnosis: iup at 39wks, previous c/s, desires permanent sterilization Post-op diagnosis: same as pre-op Procedure: NAME OF PROCEDURE: [ section with bilateral salpingectomy ] PROCEDURE: Patient was taken back to the Operating Room where she was given a spinal anesthesia with Duramorph without difficulty. She was prepped and draped in the normal sterile fashion. A Pfannenstiel skin incision was then made 2?cm above the symphysis pubis and carried down to underlying rectus fascia using a Bovie. The fascia was incised in the midline and extended laterally using Mota scissors. Two Anastacio clamps were placed on the superior aspect of the fascia and dissected off the underlying rectus muscles. The same was performed on the inferior aspect as well. The muscles were then in the midline. Peritoneum was identified and entered bluntly. The peritoneum was then extended superiorly and inferiorly with good visualization of the bladder. The bladder blade was inserted. Vesicouterine peritoneum was identified, tented up, and entered with Metzenbaum scissors. A bladder flap was then created digitally. The bladder blade was reinserted. A low transverse incision was made on the patient's uterus and extended laterally digitally. The was then delivered atraumatically after the bladder blade was removed in the cephalic position. The cord was clamped and cut. Cord blood was obtained. The infant was handed off to awaiting team. The patient's placenta was spontaneously delivered. The uterus was then exteriorized. The uterus was cleared of all clots and debris. The bladder blade was reinserted. The patient's uterine incision was closed using #0 Vicryl in a running lock fashion. Excellent hemostasis was assured.? The rt tube was identified and grasped with babock, the ligasure was used to transect and ligate the tube in its entirity, this was done on the contralateral side as well. The uterus was then returned to the patient's abdomen. The patient's abdomen was copiously irrigated using warm saline. Peritoneal gutters were cleared of all clots and debris. Again excellent hemostasis was assured. The patient's fascia was closed using #0 Vicryl in a running fashion. The patient's skin was closed using 4-0 Vicryl subcuticularly. The patient tolerated the procedure well. Sponge, lap, and needle counts were correct x2. The patient was taken to the Recovery Room in stable condition. Anesthesia: spinal Surgeon: Angel Perez Title Attorney: MARKO GAMEZ Estimated blood loss (mL): 575 Pathology: none sent Condition: stable Disposition: floor Urinary Catheter Management Urinary Catheter Management Urethral: Cath placed during this visit: yes Urethral indwelling: No Insertion date: 04/25/23 Insertion time: 06:30
--- NOTE | 2023-04-25 08:38 | P.OBPRC_ITS ---
Procedure Pre-op/Post-op diagnoses: Pre-Op/Post-Op Diagnoses Operation Date: 04/25/23 07:30 <No data on this case meets the specified criteria> Procedure: Procedures Operation Date: 04/25/23 07:30 Actual Procedure Side Surgeon p with bilateral salpingectomy Not Applicable Angel Perez DO Insurance Inspector: MARKO GAMEZ Estimated blood loss (mL): 575 Disposition: PACU Anesthesia type: Spinal
[2023-04-25] MEDS: BUPIVACAINE HCL 0.5% PF 50 MG/10 ML VIAL INJ (09:01)
[2023-04-25] MEDS: 0.9 % SODIUM CHLORIDE 10 ML VIAL INJ (09:01)
--- NOTE | 2023-04-25 09:07 | PM.EN ---
Event Note Event Note: Plodder Operator Note: I first assisted Dr Ana leblanc repeat section and bilateral salpingectomy. I assisted physician as directed. I independently closed the SQ layer with 3-0 vicryl without difficulty. I then independently closed the skin incision with 4-0 vicryl on a Steffen needle without difficulty. Hemostasis noted at the completion of the case.
--- NOTE | 2023-04-25 09:10 | P.OBHP_ITS ---
OB - H&P: HPI History of Present Illness Chief complaint: PARTNERS @10:30/ : 5 Para: 3 Gestational age based on last menstrual period: 39.0 History of Present Dating criteria: LMP confirmed by 1st trimester US care: good care complications: labor Labs Blood type: A (-) negative Rubella: immune RPR/VDLR: nonreactive GBS status: positive HBsAG: negative Review of Systems ROS Status of ROS: 10 or more systems reviewed and unremarkable except as noted in history and below PFSH PFS Medical History (Updated 04/25/23 @ 09:43 by MARKO GAMEZ APRN, MEETA) delivery delivered ?O82 - Encounter for delivery without indication (ICD-10) Social History (Updated 04/25/23 @ 06:36 by Nemesio Obrien) Smoking status: Never smoker Non-prescribed substance use: denies use Meds Home Medications and Allergies Home Medications Medication Instructions Recorded Confirmed Type aspirin 81 mg tablet,delayed 81 mg PO DAILY 04/25/23 04/25/23 History release (Adult Aspirin Regimen) docosahexaenoic acid 200 mg mg PO 04/25/23 History capsule (Algal Flint-3 DHA) vitamins-iron fumarate 27 tab 04/25/23 History mg iron-folic acid 0.8 mg tablet sertraline 25 mg tablet 25 mg PO Q24H 04/25/23 04/25/23 History Allergies Allergy/AdvReac Type Severity Reaction Status Date / Time No Known Drug Allergies Allergy Verified 04/25/23 07:27 Exam Narrative Exam Narrative: patient has history of contractions with this . She is Rh nega tive. she has +positive COVID this Constitutional Vital Signs, click to edit/add: Last Vital Signs Temp 98.7 F 04/25/23 07:00 Pulse 69 04/25/23 05:43 Resp 18 04/25/23 07:00 Pulse Ox 98 04/25/23 07:00 O2 Del Method Room Air 04/25/23 07:00 Documenting provider has reviewed patient's vital signs: yes Common normals: no apparent distress General appearance: cooperative and comfortable Orientation/consciousness: Yes awake, Yes oriented to person, Yes oriented to place and Yes oriented to time HENMT Common normals: normocephalic General ear: hearing grossly impaired Eye Common normals: EOMs intact bilaterally Lymph Lymphatic: no lymphadenopathy noted Respiratory Common normals: normal respiratory effort Effort & inspection: able to speak in complete sentences Auscultation: clear to auscultation bilaterally Cardio Common normals: regular rate, regular rhythm and no murmurs Rate: regular rate Rhythm: regular rhythm GI Common normals: Normal to inspection, nondistended, normoactive bowel sounds present Palpation: soft Common normals: no CVA tenderness Back & Pelvis Common normals: no CVA tenderness Extremity Common normals: full ROM Neuro Common normals: oriented x3 and moves all extremities Sensorium/orientation: awake, alert, oriented to person, oriented to place and oriented to time Speech: speech normal Psych Common normals: mental status grossly normal and thought process normal Results Labs Labs: Short CBC 04/25/23 Range/Units 06:15 WBC 10.6 (4.0-11.0) 10^3/uL Hgb 12.3 (12.0-16.0) g/dL Hct 36.5 (36.0-48.0) % Plt Count 138 L (150-450) 10^3/uL Urine 04/25/23 Range/Units 06:00 Urine Color Lt. yellow (YELLOW) Urine Clarity Clear (CLEAR) Urine pH 6.5 (5.0-9.0) Ur Specific [place] 1.015 (1.005-1.025) Urine Protein Negative (NEG/TRACE) mg/dL Urine Glucose (UA) Negative (NEGATIVE) mg/dL OB - A/P Assessment and Plan (1) Term : Plan term Urinary Catheter Management Urinary Catheter Management Urethral: Cath placed during this visit: yes Urethral indwelling: No Insertion date: 04/25/23 Insertion time: 06:30
[2023-04-25] MEDS: OXYTOCIN/0.9 % SODIUM CHLORIDE 20 UNITS/1,000 ML PLAST..BAG 125 UNIT IV (09:15)
[2023-04-25] MEDS: BUPIVACAINE LIPOSOME/PF 266 MG/13.3 ML VIAL INJ (09:29)
[2023-04-25] MEDS: KETOROLAC TROMETHAMINE 30 MG/ML VIAL IVP (17:09)
[2023-04-25] MEDS: ENOXAPARIN SODIUM 40 MG/0.4 ML SYRINGE SUBQ (20:44)
[2023-04-25] MEDS: ACETAMINOPHEN 500 MG TABLET 1000 MG PO (20:44)
[2023-04-26] VITALS (8 sets, daily range): BP systolic 110–122; BP diastolic 56–66; PULSE 67–74; RESP 16–18; TEMP 36.6–36.9
[2023-04-26] MEDS: KETOROLAC TROMETHAMINE 30 MG/ML VIAL IVP (00:37)
[2023-04-26] MEDS: ACETAMINOPHEN 500 MG TABLET 1000 MG PO ×3 (04:28→21:40)
[2023-04-26 06:35] LABS: Hematocrit 26.9 % (36.0-48.0); Hemoglobin 8.8 g/dL (12.0-16.0); Mean Corpuscular HGB Conc 32.7 g/dL (29.9-35.2); Mean Corpuscular Volume 94.7 fL (81.0-99.0); Mean Platelet Volume 13.7 fL (9.5-13.5); Platelet Count 112 10^3/uL (150-450); Red Blood Count 2.84 10^6/uL (4.20-5.40); Red Cell Distribution Width 14.8 % (11.0-15.0); White Blood Count 12.5 10^3/uL (4.0-11.0)
--- NOTE | 2023-04-26 08:49 | PM.OBPN ---
OB - PN: Subj Subjective Patient comments: no complaints, pain well controlled, tolerating diet and flatus present [place] infant status: doing well and well [place] feeding status: exclusively Exam Constitutional Vital Signs, click to edit/add: Last Vital Signs Temp 98.2 F 04/26/23 05:11 Pulse 67 04/26/23 05:11 Resp 16 04/26/23 05:11 BP 120/66 04/26/23 05:11 Pulse Ox 98 04/25/23 11:45 O2 Del Method Room Air 04/26/23 00:27 Documenting provider has reviewed patient's vital signs: yes Common normals: no apparent distress and oriented x3 HENMT Common normals: normocephalic Eye Common normals: EOMs intact bilaterally General eye: normal appearance of both eyes Neck & C-Spine Common normals: full ROM Lymph Lymphatic: no lymphadenopathy noted Respiratory Common normals: normal respiratory effort and no retractions Cardio Common normals: regular rate and regular rhythm Rate: regular rate Rhythm: regular rhythm GI Common normals: Normal to inspection, nondistended, normoactive bowel sounds present, soft to palpation and non-tender Auscultation: normoactive bowel sounds Palpation: soft Common normals: no CVA tenderness Back & Pelvis Common normals: no CVA tenderness Extremity Common normals: normal to inspection and full ROM Neuro Common normals: oriented x3 Speech: speech normal Psych Common normals: mental status grossly normal, thought process normal and cooperative Activity/motor behavior: appropriate eye contact Results Labs Labs: Short CBC 04/26/23 Range/Units 06:23 WBC 12.5 H (4.0-11.0) 10^3/uL Hgb 8.8 L (12.0-16.0) g/dL Hct 26.9 L (36.0-48.0) % Plt Count 112 L (150-450) 10^3/uL Urinary Catheter Management Urinary Catheter Management Urethral: Cath placed during this visit: yes Urethral indwelling: No Insertion date: 04/25/23 Insertion time: 06:30 OB - PN: A/P Assessment and Plan (1) Term : Plan - day: 1 Plan: routine postop care Time Spent with Patient Time: Total time spent is greater than 50% in coordination of care (as documented) at patient's floor/unit and/or counseling patient: Total time spent with greater than 50% in coordination of care (as documented) at patient's floor/unit and/or counseling patient: less than 15 minutes
[2023-04-26] MEDS: IBUPROFEN 400 MG TABLET 800 MG PO ×2 (09:52→17:47)
[2023-04-26] MEDS: SERTRALINE HCL 50 MG TABLET 25 MG PO (09:54)
--- NOTE | 2023-04-26 10:59 | PC.NURSE ---
1030 Patient up to shower, abdominal dressing removed. Steri strips intact, bruising noted.
--- NOTE | 2023-04-26 12:13 | PC.NURSE ---
1052 post pain level 2/10
--- NOTE | 2023-04-26 14:30 | PC.NURSE ---
Yaz laying with skin to skin. Aware baby is down 5.5% in weight. States that baby is feeding well, denies nipple tenderness or damage. Reports audible swallows noted when at the breast and is an experienced mother. Previous child is 14 months , states I remember well what a good latch is or a bad one . Support offered.
[2023-04-26] MEDS: RHO(D) IMMUNE GLOBULIN 1,500 UNIT SYRINGE 1500 UNIT IV (17:47)
--- NOTE | 2023-04-26 19:33 | W.PC.ACHO ---
Registration Status: ADM IN Primary Language: Haitian Preferred Language: Haitian Report received from LIZBETH DELEON at 1900. Active Medications Generic Name Dose Route Start Last Admin Trade Name Freq PRN Reason Stop Dose Admin Acetaminophen 1,000 mg 04/25/23 21:00 04/26/23 13:44 Acetaminophen 500 Mg Tablet PO 1,000 mg Q8H PALMER Administration Al Hydroxide/Mg Hydroxide 2,400 mg 04/25/23 09:48 Magnesium Hydroxide 2,400 Mg/10 Ml Oral.Susp PO Q6H PRN Dyspepsia Diphtheria/Pertussis/Tetanus Vacc 0.5 ml 04/27/23 09:00 Adacel Diph,Pertuss(Acell),Tet Vac/Pf 0.5 Ml Adult Syringe IM 04/27/23 09:01 .ONCE ONE Docusate Sodium 100 mg 04/26/23 09:00 Docusate Sodium 100 Mg Capsule PO BID PALMER Enoxaparin Sodium 40 mg 04/25/23 21:00 04/25/23 20:44 Enoxaparin Sodium 40 Mg/0.4 Ml Syringe SUBQ 40 mg HS@2100 PALMER Administration Lactated Ringer's 1,000 mls @ 125 mls/hr 04/25/23 09:57 Lactated Ringers IV .Q8H PALMER Ibuprofen 800 mg 04/26/23 09:00 04/26/23 17:47 Ibuprofen 400 Mg Tablet PO 800 mg Q8H PALMER Administration Measles/Mumps/Rubella Vaccine Live 0.5 ml 04/27/23 09:00 Measles,Mumps,Rubella Vacc/Pf 0.5 Ml Vial SQ 04/27/23 09:01 .ONCE ONE Ondansetron HCl 4 mg 04/25/23 09:48 Ondansetron Pf 4 Mg/2 Ml Vial IV Q6H PRN Nausea And Vomiting Ondansetron HCl 4 mg 04/25/23 09:48 Ondansetron 4 Mg Rapdis Tablet PO Q6H PRN Nausea And Vomiting Sertraline HCl 25 mg 04/26/23 09:00 04/26/23 09:54 Sertraline Hcl 50 Mg Tablet PO 25 mg QD PALMER Administration Simethicone 80 mg 04/25/23 09:48 Simethicone 80 Mg Tab.Chew PO QID PRN Abdominal Distention Respiratory Oxygen Delivery Method Room Air Oxygen Delivery Method Room Air Oxygen Delivery Method Room Air Renal Bladder Pattern Continent Catheter Urinary Catheter Date of 04/25/23 Insertion [Urethral] Urinary Catheter Time of 06:30 Insertion [Urethral]
[2023-04-26] MEDS: DOCUSATE SODIUM 100 MG CAPSULE PO (21:40)
[2023-04-26] MEDS: ENOXAPARIN SODIUM 40 MG/0.4 ML SYRINGE SUBQ (21:41)
[2023-04-27] MEDS: IBUPROFEN 400 MG TABLET 800 MG PO ×2 (00:57→09:19)
[2023-04-27 01:15] VITALS: RESP 16; TEMP 36.3
[2023-04-27 01:21] VITALS: BP 123/69; PULSE 65
--- NOTE | 2023-04-27 01:46 | PC.NURSE ---
bruising noted on pt abdomen above incision. no drainage from incision noted. steri-strips intact.
[2023-04-27] MEDS: ACETAMINOPHEN 500 MG TABLET 1000 MG PO ×2 (05:34→12:53)
--- NOTE | 2023-04-27 07:22 | W.PC.ACHO ---
Registration Status: ADM IN Primary Language: Brazilian Preferred Language: Brazilian Report given to Rosemarie DELEON at 0710. Active Medications Generic Name Dose Route Start Last Admin Trade Name Freq PRN Reason Stop Dose Admin Acetaminophen 1,000 mg 04/25/23 21:00 04/27/23 05:34 Acetaminophen 500 Mg Tablet PO 1,000 mg Q8H PALMER Administration Al Hydroxide/Mg Hydroxide 2,400 mg 04/25/23 09:48 Magnesium Hydroxide 2,400 Mg/10 Ml Oral.Susp PO Q6H PRN Dyspepsia Diphtheria/Pertussis/Tetanus Vacc 0.5 ml 04/27/23 09:00 Adacel Diph,Pertuss(Acell),Tet Vac/Pf 0.5 Ml Adult Syringe IM 04/27/23 09:01 .ONCE ONE Docusate Sodium 100 mg 04/26/23 09:00 04/26/23 21:40 Docusate Sodium 100 Mg Capsule PO 100 mg BID PALMER Administration Enoxaparin Sodium 40 mg 04/25/23 21:00 04/26/23 21:41 Enoxaparin Sodium 40 Mg/0.4 Ml Syringe SUBQ 40 mg HS@2100 PALMER Administration Lactated Ringer's 1,000 mls @ 125 mls/hr 04/25/23 09:57 Lactated Ringers IV .Q8H PALMER Ibuprofen 800 mg 04/26/23 09:00 04/27/23 00:57 Ibuprofen 400 Mg Tablet PO 800 mg Q8H PALMER Administration Measles/Mumps/Rubella Vaccine Live 0.5 ml 04/27/23 09:00 Measles,Mumps,Rubella Vacc/Pf 0.5 Ml Vial SQ 04/27/23 09:01 .ONCE ONE Ondansetron HCl 4 mg 04/25/23 09:48 Ondansetron Pf 4 Mg/2 Ml Vial IV Q6H PRN Nausea And Vomiting Ondansetron HCl 4 mg 04/25/23 09:48 Ondansetron 4 Mg Rapdis Tablet PO Q6H PRN Nausea And Vomiting Sertraline HCl 25 mg 04/26/23 09:00 04/26/23 09:54 Sertraline Hcl 50 Mg Tablet PO 25 mg QD PALMER Administration Simethicone 80 mg 04/25/23 09:48 Simethicone 80 Mg Tab.Chew PO QID PRN Abdominal Distention Respiratory Oxygen Delivery Method Room Air Oxygen Delivery Method Room Air Renal Bladder Pattern Continent Bladder Pattern Continent Catheter Urinary Catheter Date of 04/25/23 Insertion [Urethral] Urinary Catheter Time of 06:30 Insertion [Urethral]
--- NOTE | 2023-04-27 07:39 | PM.OBPN ---
OB - PN: Subj Subjective Patient comments: no complaints and pain well controlled [place] status: doing well Exam Constitutional Vital Signs, click to edit/add: Last Vital Signs Temp 97.4 F L 04/27/23 01:15 Pulse 65 04/27/23 01:21 Resp 16 04/27/23 01:15 BP 123/69 04/27/23 01:21 Pulse Ox 98 04/25/23 11:45 O2 Del Method Room Air 04/27/23 01:15 Documenting provider has reviewed patient's vital signs: yes Common normals: no apparent distress Respiratory Common normals: clear to auscultation bilaterally Cardio Common normals: regular rate and regular rhythm GI Common normals: Normal to inspection, nondistended, normoactive bowel sounds present Extremity Common normals: no calf tenderness Urinary Catheter Management Urinary Catheter Management Urethral: Cath placed during this visit: yes Urethral indwelling: No Insertion date: 04/25/23 Insertion time: 06:30 OB - PN: A/P Assessment and Plan (1) Term : Plan - day: 1 Plan: routine postop care, discharge home and other (fu 1wk) Time Spent with Patient Time: Total time spent is greater than 50% in coordination of care (as documented) at patient's floor/unit and/or counseling patient: Total time spent with greater than 50% in coordination of care (as documented) at patient's floor/unit and/or counseling patient: less than 15 minutes
[2023-04-27 08:15] VITALS: BP 127/66; PULSE 64; RESP 16; TEMP 37.5
[2023-04-27] MEDS: DOCUSATE SODIUM 100 MG CAPSULE PO (09:19)
[2023-04-27] MEDS: SERTRALINE HCL 50 MG TABLET 25 MG PO (09:20)
--- NOTE | 2023-04-27 11:39 | PC.NURSE ---
Assisted with positioning and latch as mom reports small compression stripe on right nipple tip. Good placement and latch noted and mom able to independently latch well. Audible swallowing noted. Will return 05/01/2023 for follow up.
--- NOTE | 2023-04-27 15:01 | PC.NURSE ---
voices no complaints, nursing baby and states will be ready for dc shortly
--- NOTE | 2023-05-15 | DS_ITS ---
DISCHARGE DATE: 05/15/2023 PRIMARY DIAGNOSES: 1. Intrauterine at 39 weeks. 2. Previous . 3. Desires permanent sterilization. PROCEDURE: section with bilateral salpingectomy. HOSPITAL COURSE: As expected. Please see chart for full details. LABORATORY DATA: Please see chart. COMPLICATIONS: None. DISCHARGE CONDITION: Stable. CONSULTATION: Anesthesia. DISCHARGE INSTRUCTIONS: 1. Diet: Regular. 2. Medications: a. Percocet 5/325 one to two p.o. every 4-6 hours p.r.n. pain. b. Motrin 800 one p.o. every 8 hours p.r.n. pain. 3. Followup in one week. Restrictions: Pelvic rest for 6 weeks. No heavy lifting. May drive when pain free and no longer on narcotics. MTDD
== END 2023-04-27 15:40 | disposition home or self-care (01) | DRG 785 ==
PROVIDERS: Midwife; Admitting Provider Obstetrics & Gynecology; Visit Provider Obstetrics & Gynecology
PROC: 10D00Z1 Extraction of Products of Conception, Low, Open Approach (ICD-10-PCS; CPT 59514; principal; 2023-04-25 07:30)
DX: O34.211 Maternal care for low transverse scar from previous cesarean delivery (principal); O99.824 Streptococcus B carrier state complicating childbirth; Z3A.39 39 weeks gestation of pregnancy; Z37.0 Single live birth; Z30.2 Encounter for sterilization; Z86.16 Personal history of COVID-19; O26.893 Other specified pregnancy related conditions, third trimester; Z67.11 Type A blood, Rh negative
CPT/HCPCS: 36415; 51702; 64488; 80307; 81001; 85025; 85027; 85461; 86850; 86900; 86901; 88302; 96372; 96374; 96375; J0131; J0665; J0690; J1100; J1650; J1885; J2405; J2590; J2765; J2790

== ENCOUNTER 2023-05-01 08:45 | Outpatient (OUT) | payer OTHER, SELFPAY ==
--- OUTSIDE RECORDS SUMMARY | 2023-05-01 08:50 | XMS_ITS | CCD ---
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 Name Role Phone Unavailable Primary Care Provider Unavailabl e PAY, DR CROW Attending Unavailable [facility]UE[facility] Primary Care Unavailable PAY, DR CROW Admitting Unavailable PAY, DR CROW Consulting Unavailable LIYA, HILARIA GUTIÉRREZ Consulting Unavailable JANA, REGAN Consulting Unavailable Shanique Mark MD Primary Care Wi ovider QUINN WONG Admitting Unavailable QUINN WONG Attending Unavailable SHANIQUE MARK Primary Care [...] Active docusate sodium 50 mg / sennosides, jail 8.6 mg oral tablet (1 source) Start: [...] 20 mg/ml oral suspension (1 source) Uncompetitive Z-tpfvqb-D-aspartate Receptor Antagonist, Sigma-1 Agonist Start: 03-18-2022 End: [...] te Episodic/Chronic Other aftercare (1 source) 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 ELECTRONICALLY SIGNED BY: Hector Corey, DO Normal Not Available US OB [...] Not Available Outside [facility] 02-24-2023 Outside Records [id number]# [facility] FOLLOW UP TRANSABDOMIN AL APPROACHon [...] Not Available Outside [facility] 02-22-2023 Outside Records [id number]#1. [facility] - Other Lab [facility] Lab - Other Lab Results [id number]#1 .[facility] 01-27-2023 Outside Records [id number]# [facility] Other Lab [facility] - Other Lab Results [id number]# [facility] Lab [facility] - Other Lab Results [id number]#1 .[facility] 11-30-2022 Outside Records [id number]#1. [facility] - Other Lab Results [id number]#1 .[facility] 10-26-2022 Outside Records [id number]#1.0 [facility] 10-07-2022 Outside Records [id number]# 1.[facility] Other Lab [facility] - Other Lab Results [id number]#1 .[facility] ROSETTEon 03-17-2022 Ramandeep Negative [facility] Rosetteon 03-17-2022 Ramandeep Negative Normal [facility] Comment on above: Performed By: #### C FET #### [facility] [address] [place] [address] Operations Specialist: Juan Salazar MD Hemoglobinon 03-17-2022 Hemoglobin (Bld) [Mass/Vol] 10.3 g/dL Low 11.9-15.1 [facility] Comment on above: Performed By: #### H GB #### [facility] [address] [place] [address] Operations Specialist: Juan Salazar MD Hemoglobin (Bld) [Mass/Vol] 10.3 g/dL Low 11.9 - 15.1 g/dL [facility] Interpretation and review of laboratory results Abnormal [facility] RHIG, Transfuseon 03-17-2022 RHIG, Transfuse Unit Number [id number] Blood Component Type RHIG Unit Division 00 Status of Unit TRANSFUSED Transfusion Status OK TO TRANSFUSE Normal [facility] Comment on above: Performed By: #### T RHIG #### [facility] [address] [place] [address] Operations Specialist: Juan Salazar MD DRUG SCREEN MULTI URINEon Amphetamine Screen, Ur Negative NEGATIVE [facility] Barbiturate Screen, Ur Negative NEGATIVE [facility] Benzodiazepine Screen, Urine Negative NEGATIVE [facility] Buprenorphine Urine Negative NEGATIVE [facility] Cannabinoid Scrn, Ur Negative NEGATIVE [facility] Cocaine Metabolite, Urine Negative NEGATIVE [facility] Methadone Screen, Urine Negative NEGATIVE [facility] Methamphetamine, Urine Negative NEGATIVE [facility] Opiates, Urine Negative NEGATIVE [facility] Oxycodone Screen, Ur Negative NEGATIVE [facility] Phencyclidine, Urine Negative NEGATIVE [facility] Propoxyphene, Urine Negative NEGATIVE [facility] Tricyclic Antidepressants, Urine Negative NEGATIVE [facility] Comment on above: Drug screen results are to be used for medical purposes only. All positive results are unconfirmed. Testing for employment or legal uses should be sent to a reference laboratory for confirmation. [facility] Drug Scr, Abuse, Uron 2021 Amphetamine(s),Ur Negative Normal [facility] Comment on above: Performed By: #### D AU #### [facility] [address] [place] [address] Operations Specialist: Juan Salazar MD Barbiturate(s),Ur Negative Normal [facility] Comment on above: Performed By: #### D AU #### [facility] [address] [place] [address] Operations Specialist: Juan Salazar MD Benzodiazepine(s) Negative Normal [facility] Comment on above: Performed By: #### D AU #### [facility] [address] [place] [id number] Operations Specialist: Juan Salazar MD Buprenorphrine, Ur Negative Normal [facility] Comment on above: Performed By: #### D AU #### [facility] [address] [place], [facility] Operations Specialist: Juan Salazar MD Cannabinoid(s),Ur Negative Normal [facility] Comment on above: Performed By: #### D AU #### [address] [place] [address] Operations Specialist: Juan Salazar MD Cocaine Metabolite Negative Normal [facility] Comment on above: Performed By: #### D AU #### [facility] [address] [place] [address] Dr. [place], [facility]83 Operations Specialist: Juan Salazar MD Methadone Ql (U) Negative Normal [facility] Comment on above: Performed By: #### D AU #### [address] [place] [id number] Operations Specialist: Juan Salazar MD Methamphetamine, Ur Negative Normal [facility] Comment on above: Performed By: #### D AU #### [facility] [address] [place] [address] Dr. [place], [facility] Operations Specialist: Juan Salazar MD Opiate(s), Ur Negative Normal [facility] Comment on above: Performed By: #### D AU #### [facility] [address] [place] [address] Operations Specialist: Juan Salazar MD Oxycodone, Urine Negative Normal NEG [facility] Comment on above: Performed By: #### D AU #### [facility] [address] [place] [address] Dr. [place], [facility] Operations Specialist: Juan Salazar MD Phencyclidine, Ur Negative Normal NE[facility] Comment on above: Performed By: #### D AU #### [address] [place] [address] Operations Specialist: Juan Salazar MD Propoxyphene,Urine Negative Normal NEG [facility] Comment on above: Performed By: #### D AU #### [address] [place] [address] Operations Specialist: Juan Salazar MD Tricyclic antidepressants Screen Ql (U) Negative Normal [facility] Comment on above: Result Comment: Drug screen results are to be used for medical purposes only. All positive results are unconfirmed. Testing for employment or legal uses should be sent to a reference laboratory for confirmation. Performed By: #### D AU #### [address] [place] [address] Operations Specialist: Juan Salazar MD OPERATIVE REPORTon OPERATIVE REPORT [address] [address] OPERATIVE REPORT PATIENT NAME: GAY MARROQUIN : 1980 MED REC NO: [id number] ROOM: [facility] ACCOUNT NO: [id number] ADMIT DATE: 03/16/2022 PROVIDER: Quinn Wong MD DATE OF PROCEDURE: 03/16/2022 PREOPERATIVE DIAGNOSIS: Term with history of two prior sections. POSTOPERATIVE DIAGNOSIS: Term with history of two prior sections. PROCEDURE PERFORMED: Repeat section, low-transverse uterine segment. SURGEON: Quinn Wong M.D. ANESTHESIA: Spinal. RETAIL ZONE SPECIALIST: Marko Herbert. ESTIMATED BLOOD LOSS: 600 mL. [...] was extended in a semilunar fashion with compressor operator adjuster's fingers. Uterine incision was then entered with compressor operator adjuster's fingers. Fundal pressure placed. 's head was [...] of running imbricating interlocking fashion. An additional zzbjur-mg-dmqsn suture was placed in the superior right [...] taken to recovery room in good condition. QUINN WONG MD DASHA/[email or web address] Doc#: [id number] CC: Marko Herbert Normal [facility] CBCon 03-15-2022 Erythrocyte distribution width (RBC) [Ratio] 14.1 % Normal 11.8-14.4 [facility] Comment on above: Performed By: #### C BC #### [facility] [address] [place] [address] Dr[place], [place] [id number] Operations Specialist: Juan Salazar MD Hematocrit (Bld) [Volume fraction] 38.3 % Normal 36.3-47.1 [facility] Comment on above: Performed By: #### C BC #### [address] [place] [id number] Operations Specialist: Juan Salazar MD Hemoglobin (Bld) [Mass/Vol] 13.1 g/dL Normal 11.9-15.1 [facility] Comment on above: Performed By: #### C BC #### [address] [place], [place] 3852483 Operations Specialist: Juan Salazar MD MCH (RBC) [Entitic mass] 31.6 pg Normal 25.2-33.5 [facility] Comment on above: Performed By: #### C BC #### [address] [place], [place] 8724583 Operations Specialist: Juan Salazar MD MCHC (RBC) [Mass/Vol] 34.2 g/dL Normal 28.4-34.8 [facility] Comment on above: Performed By: #### C BC #### [address] [place] [address] Operations Specialist: Juan Salazar MD MCV (RBC) [Entitic vol] 92.3 fL Normal 82.6-102.9 [facility] Comment on above: Performed By: #### C BC #### [address] [place] [address] Operations Specialist: Juan Salazar MD NRBC Automated 0.0 per 100 WBC Normal 0.0 [facility] Comment on above: Performed By: #### C BC #### [facility] [address] [place] [address] Operations Specialist: Juan Salazar MD Platelet mean volume (Bld) [Entitic vol] 12.2 fL Normal 8.1-13.5 [facility] Comment on above: Performed By: #### C BC #### [facility] [address] [place] [address] Operations Specialist: Juan Salazar MD Platelets (Bld) [#/Vol] 193 10*3/uL Normal 138-453 [facility] Comment on above: Performed By: #### C BC #### [facility] [address] [place] [address] Operations Specialist: Juan Salazar MD RBC (Bld) [#/Vol] 4.15 10*6/uL Normal 3.95-5.11 [facility] Comment on above: Performed By: #### C BC #### [facility] [address] [place] [address] Operations Specialist: Juan Salazar MD WBC (Bld) [#/Vol] 8.7 10*3/uL Normal 3.5-11.3 [facility] Comment on above: Performed By: #### C BC #### [facility] [address] [place] [address] Operations Specialist: Juan Salazar MD Hematocrit (Bld) [Volume fraction] 38.3 % 36.3 - 47.1 % [facility] Hemoglobin (Bld) [Mass/Vol] 13.1 g/dL 11.9 - 15.1 g/dL [facility] MCH (RBC) [Entitic mass] 31.6 pg 25.2 - 33.5 pg [facility] MCHC (RBC) [Mass/Vol] 34.2 g/dL 28.4 - 34.8 g/dL [facility] MCV (RBC) [Entitic vol] 92.3 fL 82.6 - 102.9 fL [facility] NRBC Automated 0.0 0.0 per 100 WBC [facility] Platelet distribution width (Bld) [Ratio] 14.1 % 11.8 - 14.4 % [facility] Platelet mean volume (Bld) [Entitic vol] 12.2 fL 8.1 - 13.5 fL [facility] Platelets (Bld) [#/Vol] 193 10*3/uL [facility] RBC (Bld) [#/Vol] 4.15 10*6/uL 3.95 - 5.1 1 m/uL [facility] WBC (Bld) [#/Vol] 8.7 10*3/uL [facility] Type + Screenon 03-15-2022 Type + Screen Sample Expiration 03/18/2022,2359 Arm Band Number [id number] ABO/Rh(D) A NEGATIVE Antibody Screen POSITIVE Antibody Ident Anti-D, Passive Due To RhIG Normal [facility] Comment on above: Performed By: #### T YS #### [facility] [address] [place] [address] Operations Specialist: Juan Salazar MD GBS, External Resulton 02-21 GBS, External Result Positive [facility] Work Phone: Comment on above: RB RN/ MB RN [facility] Work Phone: US OB Limitedon 01-19-2022 US [...] by Eduardo Peres on 01/24/2022 1205 Normal [facility] Rn Enterostomal ABO, External Resulton 12-28 ABO, External Result Negative [facility] Phone: Comment on above: MIL DELEON/ ALEKSANDRA DELEON [facility] Work Phone: US OB 1ST Trimesteron 2021 [...] by Eduardo Peres on 08/31/2021 1130 Normal [facility] Rn Enterostomal C. Trachomatis, External Res [facility] 08-16-2021 C. Trachomatis, External Result Not detected [facility] Work Phone: Comment on above: IML JAEGER/ ALEKSANDRA DELEON Hepatitis B, External Result on 08-16-2021 Hep B, External Result Non-Reactive [facility] Work Phone: Comment on above: MIL DELEON/ ALEKSANDRA DELEON N. Gonorrhoeae, External Res [facility] 08-16-2021 N. Gonorrhoeae, External Result Not detected [facility] Work Phone: No Panel Informationon 08-16 [facility] Work Phone: [facility] Work Phone: Q - ABO GROUP AND RH TYPEon 08-16-2021 ABO group Nom (Bld) A Normal [facility] Specialist Comment on above: Order Comment: [facility] Testing performed at: [facility], [facility], [address] [place] [address], [address] [place] [address], [address] [place] [address], Barrel Tester And Drainer: Mike Larkin MD [facility] Collection Date/Time: [facility] Results Received Date/Time: [facility] Reported Date/Time: Performed By: #### 5 3348W, 4439, 6399, 20457, 2782A, 1149T, 63892, 265F, 430A, 6304R, 03001C, 87247 #### [facility] Default [address] [place] [address] RH TYPE Negative Normal [facility] Comment on above: Order Comment: [facility] Testing performed at: Q, [facility], [address] [facility], [address] [place] [address], [address] [place] [address], Barrel Tester And Drainer: Mike Larkin MD [facility] Date/Time: [facility] Results Received Date/Time: [facility] Reported Date/Time: Result Comment: For additional information, please refer to http://education.[employer]/faq/PZN969 (This link is being provided for informational/ educational purposes only.) Performed By: #### 5 3348W, 4439, 6399, 44350, 2782A, 1149T, 60380, 265F, 430A, 6304R, 23007S, 63817 #### [facility] Default [address] [place] [address] Q - ANTIBODY SCREEN,RBC W/RE FL ID,TITER AND AGon 08-16-2021 ANTIBODY SCREEN, RBC W/REFL ID, TITER AND AG Detected Normal [facility] Comment on above: Order Comment: [facility] performed at: [facility], [facility], [address] [facility], [address] [place] [address], [address] [place] [address], Barrel Tester And Drainer: Mike Larkin MD [facility] Date/Time: [facility] Results Received Date/Time: [facility] Reported Date/Time: Result Comment: Refe rence range No antibodies detected This assay is a screening test for the detection of red blood cell antibodies. The test is not to be used for pretransfusion screening or for the medical management of an alloimmunized . Performed By: #### 5 3348W, 4439, 6399, 06702, 2782A, 1149T, 88133, 265F, 430A, 6304R, 62207X, 60250 #### [facility] Default [address] [place] [address] Q - CBC W/DIFF AND PLTon BASOABS 20 cells/uL Normal 0-200 [facility] Rn Enterostomal Comment on above: Order Comment: [facility] Testing performed at: [facility], [address] [place] [address], [address] [place] [address], [address] [place] [address], Barrel Tester And Drainer: Mike Larkin MD [facility] Date/Time: [facility] Results Received Date/Time: [facility] Reported Date/Time: Performed By: #### 5 3348W, 4439, 6399, 07191, 2782A, 1149T, 99033, 265F, 430A, 6304R, 38377E, 28361 #### [facility] Default [address] [place] [address] Basophils/100 WBC (Bld) 0.2 % Normal [facility] Specialist Comment on above: Order Comment: [facility] Testing performed at: [facility], [address] [facility], [address] [place] [address], [address] [place] [address], Barrel Tester And Drainer: Mike Larkin MD [facility] Date/Time: [facility] Results Received Date/Time: [facility] Reported Date/Time: Performed By: #### 5 3348W, 4439, 6399, 52469, 2782A, 1149T, 72329, 265F, 430A, 6304R, 10374L, 55156 #### [facility] Default [address] [place] [address] EOSABS 30 cells/uL Normal 15-500 [facility] Rn Enterostomal Comment on above: Order Comment: [facility] Testing performed at: [facility], [facility], [address] [facility], [address] [place] [address], [address] [place] [address], Barrel Tester And Drainer: Mike Larkin MD [facility] Date/Time: [facility] Results Received Date/Time: [facility] Reported Date/Time: Performed By: #### 5 3348W, 4439, 6399, 95155, 2782A, 1149T, 28290, 265F, 430A, 6304R, 41267C, 59452 #### [facility] Default [address] [place] [address] Eosinophils/100 WBC (Bld) 0.3 % Normal [facility] Rn Enterostomal Comment on above: Order Comment: [facility] performed at: [facility], [facility], [address], [address] [place] [address], [address], Barrel Tester And Drainer: Mike Larkin MD [facility] Date/Time: [facility] Results Received Date/Time: [facility] Reported Date/Time: Performed By: #### 5 3348W, 4439, 6399, 98482, 2782A, 1149T, 20528, 265F, 430A, 6304R, 77054W, 17518 #### [facility] Default [address] [place] [address] Erythrocyte distribution width (RBC) [Ratio] 13.2 % Normal 11.0-15.0 [facility] Rn Enterostomal Comment on above: Order Comment: [facility] performed at: [facility], [facility], [address] , [address] [place] [address], [address] [place] [address], Barrel Tester And Drainer: Mike Larkin MD [facility] Date/Time: [facility] Results Received Date/Time: [facility] Reported Date/Time: Performed By: #### 5 3348W, 4439, 6399, 43874, 2782A, 1149T, 79799, 265F, 430A, 6304R, 99351W, 59268 #### [facility] Default [address] [place] [address] Hematocrit (Bld) [Volume fraction] 37.0 % Normal 35.0-45.0 [facility] Rn Enterostomal Comment on above: Order Comment: [facility] Testing performed at: [email or web address], [facility], [address] , [address] [place] [address], [address] [place] [address], Barrel Tester And Drainer: Mike Larkin MD [facility] Date/Time: [facility] Results Received Date/Time: [facility] Reported Date/Time: Performed By: #### 5 3348W, 4439, 6399, 03076, 2782A, 1149T, 77091, 265F, 430A, 6304R, 30685J, 68177 #### [facility] Default [address] [place] [address] Hemoglobin (Bld) [Mass/Vol] 12.5 g/dL Normal 11.7-15.5 [facility] Rn Enterostomal Comment on above: Order Comment: [facility] Testing performed at: [facility], [facility], [address] , [address] [place] [address], [address], Barrel Tester And Drainer: Mike Larkin MD [facility] Date/Time: [facility] Results Received Date/Time: [facility] Reported Date/Time: Performed By: #### 5 3348W, 4439, 6399, 87123, 2782A, 1149T, 90375, 265F, 430A, 6304R, 54230L, 74089 #### [facility] Default [address] [place] [address] Lymphocytes (Bld) [#/Vol] 1.921 10*3/uL Normal 850-3900 [facility] Rn Enterostomal Comment on above: Order Comment: [facility] Testing performed at: [facility], [facility], [address] , [address] [place] [address], [address] [place] [address], Barrel Tester And Drainer: Mike Larkin MD [facility] Date/Time: [facility] Results Received Date/Time: [facility] Reported Date/Time: Performed By: #### 5 3348W, 4439, 6399, 83907, 2782A, 1149T, 49608, 265F, 430A, 6304R, 75185B, 41134 #### [facility] Default [address] [place] [address] Lymphocytes/100 WBC (Bld) 19.4 % Normal [facility] Rn Enterostomal Comment on above: Order Comment: [facility] Testing performed at: [facility], [facility], [address], [address] [place] [address], [address], Barrel Tester And Drainer: Mike Larkin MD [facility] Date/Time: [facility] Results Received Date/Time: [facility] Reported Date/Time: Performed By: #### 5 3348W, 4439, 6399, 61325, 2782A, 1149T, 60980, 265F, 430A, 6304R, 71071L, 87328 #### [facility] Default [address] [place] [address] MCH (RBC) [Entitic mass] 30.4 pg Normal 27.0-33.0 [facility] Rn Enterostomal Comment on above: Order Comment: [facility] Testing performed at: [facility], [facility], [address], [address] [place] [address], [address], Barrel Tester And Drainer: Mike Larkin MD [facility] Date/Time: [facility] Results Received Date/Time: [facility] Reported Date/Time: Performed By: #### 5 3348W, 4439, 6399, 74026, 2782A, 1149T, 49460, 265F, 430A, 6304R, 27911Z, 98589 #### [facility] Default [address] [place] [address] MCHC (RBC) [Mass/Vol] 33.8 g/dL Normal 32.0-36.0 [facility] Rn Enterostomal Comment on above: Order Comment: [facility] Testing performed at: [facility], [employer] [facility], [address], [address] [place] [address], [address], Barrel Tester And Drainer: Mike Larkin MD [facility] Date/Time: [facility] Results Received Date/Time: [facility] Reported Date/Time: Performed By: #### 5 3348W, 4439, 6399, 59537, 2782A, 1149T, 12893, 265F, 430A, 6304R, 54680J, 94074 #### [facility] Default [address] [place] [address] MCV (RBC) [Entitic vol] 90.0 fL Normal 80.0-100.0 [facility] Rn Enterostomal Comment on above: Order Comment: [facility] Testing performed at: [facility], [employer] [facility], [address], [address] [place] [address], [address], Barrel Tester And Drainer: Mike Larkin MD [facility] Date/Time: [facility] Results Received Date/Time: [facility] Reported Date/Time: Performed By: #### 5 3348W, 4439, 6399, 97863, 2782A, 1149T, 97134, 265F, 430A, 6304R, 76621T, 73343 #### [facility] Default [address] [place] [address] MONOABS 584 cells/uL Normal 200-950 [facility] Rn Enterostomal Comment on above: Order Comment: [facility] Testing performed at: [facility], [employer] [facility], [address], [address] [place] [address], [address], Barrel Tester And Drainer: Mike Larkin MD [facility] Date/Time: [facility] Results Received Date/Time: [facility] Reported Date/Time: Performed By: #### 5 3348W, 4439, 6399, 48750, 2782A, 1149T, 57847, 265F, 430A, 6304R, 22772B, 51619 #### [facility] Default [address] [place] [address] Monocytes/100 WBC (Bld) 5.9 % Normal [facility] Rn Enterostomal Comment on above: Order Comment: [facility] Testing performed at: [facility], [facility], [address] , [address] [place] [address], [address] [place] [address], Barrel Tester And Drainer: Mike Larkin MD [facility] Collection Date/Time: [facility] Results Received Date/Time: [facility] Reported Date/Time: Performed By: #### 5 3348W, 4439, 6399, 35812, 2782A, 1149T, 67737, 265F, 430A, 6304R, 40827Q, 12559 #### [facility] Default [address] [place] [address] Neutrophils (Bld) [#/Vol] 7.346 10*3/uL Normal 5606-6226 [facility] Rn Enterostomal Comment on above: Order Comment: Quest Testing performed at: [facility], [facility], [address] , [address] [place] [address], [address] [place] [address], Barrel Tester And Drainer: Mike Larkin MD [facility] Collection Date/Time: [facility] Results Received Date/Time: [facility] Reported Date/Time: Performed By: #### 5 3348W, 4439, 6399, 87532, 2782A, 1149T, 88501, 265F, 430A, 6304R, 90241K, 53693 #### [facility] Default [address] [place] [address] Neutrophils/100 WBC (Bld) 74.2 % Normal [facility] Rn Enterostomal Comment on above: Order Comment: [facility] Testing performed at: [facility], [facility], [address] , [address] [place] [address], [address] [place] [address], Barrel Tester And Drainer: Mike Larkin MD [facility] Collection Date/Time: [facility] Results Received Date/Time: [facility] Reported Date/Time: Performed By: #### 5 3348W, 4439, 6399, 87085, 2782A, 1149T, 06610, 265F, 430A, 6304R, 43377T, 88626 #### [facility] Default [address] [place] [address] Platelet mean volume (Bld) [Entitic vol] 14.2 fL High 7.5-12.5 [facility] Rn Enterostomal Comment on above: Order Comment: [facility] Testing performed at: [facility], [facility], [address] , [address] [place] [address], [address], Barrel Tester And Drainer: Mike Larkin MD [facility] Collection Date/Time: [facility] Results Received Date/Time: [facility] Reported Date/Time: Performed By: #### 5 3348W, 4439, 6399, 72650, 2782A, 1149T, 20119, 265F, 430A, 6304R, 52642C, 13417 #### [facility] Default [address] [place] [address] Platelets (Bld) [#/Vol] 167 10*3/uL Normal 140-400 [facility] Comment on above: Order Comment: [facility] Testing performed at: [facility], [facility], [address] , [address] [place] [address], [address], Barrel Tester And Drainer: Mike Larkin MD [facility] Collection Date/Time: [facility] Results Received Date/Time: [facility] Reported Date/Time: Performed By: #### 5 3348W, 4439, 6399, 49382, 2782A, 1149T, 02569, 265F, 430A, 6304R, 49827T, 01619 #### [facility] Default [address] [place] [address] RBC (Bld) [#/Vol] 4.11 10*6/uL Normal 3.80-5.10 [facility] Comment on above: Order Comment: [facility] Testing performed at: [facility], [facility], [address] , [address] [place] [address], [address] [place] [address], Barrel Tester And Drainer: Mike Larkin MD [facility] Collection Date/Time: [facility] Results Received Date/Time: [facility] Reported Date/Time: Performed By: #### 5 3348W, 4439, 6399, 68995, 2782A, 1149T, 09632, 265F, 430A, 6304R, 59992A, 75911 #### [facility] Default [address] [place] [address] WBC (Bld) [#/Vol] 9.9 10*3/uL Normal 3.8-10.8 [facility] Comment on above: Order Comment: [facility] Testing performed at: [facility], [facility], [address] , [address] [place] [address], [address] [place] [address], Barrel Tester And Drainer: Mike Larkin MD [facility] Collection Date/Time: [facility] Results Received Date/Time: [facility] Reported Date/Time: Performed By: #### 5 3348W, 4439, 6399, 93354, 2782A, 1149T, 44117, 265F, 430A, 6304R, 91957D, 25869 #### [facility] Default [address] [place] [address] Q - CHLAMYDIA TRACHOMATIS/NE ISSERIA GONORRHOEAE RNA TMAon 08-16-2021 CHLAMYDIA TRACHOMATIS RNA, TMA, UROGENITAL Not detected Normal NOT DETECTED [facility] Comment on above: Order Comment: Quest Testing performed at: [facility], [address], [address] [place] [address], [address] [place] [address], Barrel Tester And Drainer: Mike Larkin MD [facility] Collection Date/Time: [facility] Results Received Date/Time: [facility] Reported Date/Time: Performed By: #### 5 3348W, 4439, 6399, 92686, 2782A, 1149T, 85804, 265F, 430A, 6304R, 51913F, 35895 #### [facility] Default [address] [place] [address] COMMENT SEE NOTE Normal [facility] Rn Enterostomal Comment on above: Order Comment: [facility] Testing performed at: [facility], [facility], [address] , [address] [place] [address], [address], Barrel Tester And Drainer: Mike Larkin MD [facility] Collection Date/Time: [facility] Results Received Date/Time: [facility] Reported Date/Time: Result Comment: The analytical performance characteristics of this assay, when used to test SurePath(TM) specimens have been determined by [facility]. The modifications have not been cleared or approved by the FDA. This assay has been validated pursuant to the CLIA regulations and is used for clinical purposes. For additional information, please refer to https://education.GINKGOTREE/faq/PXC549 (This link is being provided for information/ educational purposes only.) Performed By: #### 5 3348W, 4439, 6399, 48227, 2782A, 1149T, 35833, 265F, 430A, 6304R, 99615O, 33483 #### [facility] Default [address] [place] [address] Result Comment: See Note 1 Note 1 This drug testing is for medical treatment only. Analysis was performed as non-forensic testing and these results should be used only by healthcare providers to render diagnosis or treatment, or to monitor progress of medical conditions. For assistance with interpreting these drug results, please contact a [facility] Toxicology Specialist: [phone] ( ), M-F, 8am-6pm EST. NEISSERIA GONORRHOEAE RNA, TMA, UROGENITAL Not detected Normal NOT DETECTED [facility] Rn Enterostomal Comment on above: Order Comment: Quest Testing performed at: [facility], [address], [address] [place], [address], Barrel Tester And Drainer: Mike Larkin MD [facility] Collection Date/Time: [facility] Results Received Date/Time: [facility] Reported Date/Time: Performed By: #### 5 3348W, 4439, 6399, 08601, 2782A, 1149T, 13068, 265F, 430A, 6304R, 49001B, 67558 #### [facility] Default [address] [place] [address] Q - CULTURE,URINE,ROUTINEon 08-16-2021 CULTURE, URINE, ROUTINE SEE NOTE Normal [facility] Rn Enterostomal Comment on above: Order Comment: [facility] Testing performed at: [facility], [address], [address] [place] [address], [address], Barrel Tester And Drainer: Mike Larkin MD [facility] Collection Date/Time: [facility] Results Received Date/Time: [facility] Reported Date/Time: Result Comment: CULT URE, URINE, ROUTINE Micro Number: [id number] Test Status: Final Specimen Source: Urine Specimen Quality: Adequate Result: Mixed genital chico isolated. These superficial bacteria are not indicative of a urinary tract infection. No further organism identification is warranted on this specimen. If clinically indicated, recollect clean-catch, mid-stream urine and transfer immediately to Urine Culture Transport Tube. Performed By: #### 5 3348W, 4439, 6399, 37353, 2782A, 1149T, 73967, 265F, 430A, 6304R, 54179Z, 72119 #### [facility] Default [address] [place] [address] Q - DRUG TOX MONITORING 6 WI TH CONFIRMATION,URINEon 08-16-2021 Amphetamines Negative Normal <500 [facility] Rn Enterostomal Comment on above: Order Comment: [facility] Testing performed at: [facility], [address], [address] [place] [address], [address], Barrel Tester And Drainer: Mike Larkin MD [facility] Collection Date/Time: [facility] Results Received Date/Time: [facility] Reported Date/Time: Performed By: #### 5 3348W, 4439, 6399, 89885, 2782A, 1149T, 99298, 265F, 430A, 6304R, 61428U, 45786 #### [facility] Default [address] [place] [address] Barbiturates Negative Normal <300 [facility] Comment on above: Order Comment: [facility] Testing performed at: [facility], [facility], [facility], [address] [place] [address], [address] [place] [address], Barrel Tester And Drainer: Mike Larkin MD [facility] Collection Date/Time: [facility] Results Received Date/Time: [facility] Reported Date/Time: Performed By: #### 5 3348W, 4439, 6399, 94899, 2782A, 1149T, 38088, 265F, 430A, 6304R, 75384F, 11865 #### [facility] Default [address] [place] [address] Benzodiazepines Negative Normal <100 [facility] Comment on above: Order Comment: [facility] Testing performed at: [facility], [facility], [address] , [address] [place] [address], [address] [place] [address], Barrel Tester And Drainer: Mike Larkin MD [facility] Collection Date/Time: [facility] Results Received Date/Time: [facility] Reported Date/Time: Performed By: #### 5 3348W, 4439, 6399, 71772, 2782A, 1149T, 87729, 265F, 430A, 6304R, 23482I, 67840 #### [facility] Default [address] [place] [address] Cocaine Metabolite Negative Normal <150 [facility] Comment on above: Order Comment: [facility] Testing performed at: [facility], [facility], [address] , [address] [place] [address], [address] [place] [address], Barrel Tester And Drainer: Mike Larkin MD [facility] Collection Date/Time: [facility] Results Received Date/Time: [facility] Reported Date/Time: Performed By: #### 5 3348W, 4439, 6399, 04420, 2782A, 1149T, 82727, 265F, 430A, 6304R, 88212H, 16977 #### [facility] Default [address] [place] [address] Marijuana Metabolite 20 Negative Normal <20 [facility] Comment on above: Order Comment: [facility] Testing performed at: [facility], [facility], [address] , [address] [place] [address], [address] [place] [address], Barrel Tester And Drainer: Mike Larkin MD [facility] Collection Date/Time: [facility] Results Received Date/Time: [facility] Reported Date/Time: Performed By: #### 5 3348W, 4439, 6399, 26783, 2782A, 1149T, 80477, 265F, 430A, 6304R, 77408W, 02322 #### [facility] Default [address] [place] [address] Methadone Metabolite Negative Normal <[address] [facility] Comment on above: Order Comment: [facility] Testing performed at: [facility], [facility], [address] , [address] [place] [address], [address] [place] [address], Barrel Tester And Drainer: Mike Larkin MD [facility] Collection Date/Time: [facility] Results Received Date/Time: [facility] Reported Date/Time: Performed By: #### 5 3348W, 4439, 6399, 21734, 2782A, 1149T, 43817, 265F, 430A, 6304R, 91387G, 52241 #### [facility] Default [address] [place] [address] Opiates Negative Normal <100 [facility] Comment on above: Order Comment: [facility] Testing performed at: [facility], [facility], [address] , [address] [place] [address], [address] [place] [address], Barrel Tester And Drainer: Mike Larkin MD [facility] Collection Date/Time: [facility] Results Received Date/Time: [facility] Reported Date/Time: Performed By: #### 5 3348W, 4439, 6399, 22287, 2782A, 1149T, 61163, 265F, 430A, 6304R, 30486G, 39837 #### [facility] Default [address] [place] [address] Oxycodone Negative Normal <100 [facility] Comment on above: Order Comment: [facility] Testing performed at: [facility], [facility], [address] [place] [address], [address] [place] [address], [address] [place] [address], Barrel Tester And Drainer: Mike Larkin MD Quest Collection Date/Time: [facility] Results Received Date/Time: [facility] Reported Date/Time: Performed By: #### 5 3348W, 4439, 6399, 07696, 2782A, 1149T, 89019, 265F, 430A, 6304R, 67321L, 99048 #### [facility] Default [address] [place] [address] Phencyclidine Negative Normal <25 [facility] Rn Enterostomal Comment on above: Order Comment: [facility] Testing performed at: [facility], [facility], [address] [place] [address], [address] [place] [address], [address], Barrel Tester And Drainer: Mike Larkin MD Quest Collection Date/Time: [facility] Results Received Date/Time: [facility] Reported Date/Time: Performed By: #### 5 3348W, 4439, 6399, 65469, 2782A, 1149T, 12218, 265F, 430A, 6304R, 37843I, 81246 #### [facility] Default [address] [place] [address] Q - HEPATITIS B SURFACE ANTI GEN W/ REFLEXon 08-16-2021 HEPATITIS B SURFACE ANTIGEN Non-Reactive Normal NON-REACTIVE [facility] Comment on above: Order Comment: [facility] Testing performed at: [facility], [facility], [address] [place] [address], [address] [place] [address], [address] [place] [address], Barrel Tester And Drainer: Mike Larkin MD [facility] Collection Date/Time: [facility] Results Received Date/Time: [id number] [facility] Reported Date/Time: Performed By: #### 5 3348W, 4439, 6399, 91249, 2782A, 1149T, 33442, 265F, 430A, 6304R, 19554J, 23939 #### [facility] Default [address] [place] [address] Q - HIV 1/2 ANTIGEN/ANTIBODY ,FOURTH GENERATION W/RFLon 08-16-2021 HIV AG/AB, 4TH GEN Non-Reactive Normal NON-REACTIVE No [facility] Comment on above: Order Comment: Quest performed at: [facility], [facility], [address] [place] [address], [address] [place] [address], [address], Barrel Tester And Drainer: Mike Larkin MDQuest Collection Date/Time: Results Received Date/Time: [id number] Reported Date/Time: Result Comment: HIV- 1 antigen [...] purpose. For additional information please refer to http://education.TapIn.tv.Multiwave Photonics/faq/FGA890 (This link is being provided for informational/ educational purposes only.) The performance of this assay has not been clinically validated in patients less than 2 years old. Performed By: #### 5 3348W, 4439, 6399, 57964, 2782A, 1149T, 78171, 265F, 430A, 6304R, 88660X, 62848 ####[facility] [address] [place] [address] Q - RPR (MONITOR) W/RFX TITE Luan 08-16-2021 RPR (MONITOR) W/REFL TITER Non-Reactive Normal NON-REACTIVE [facility] Comment on above: Order Comment: Quest performed at: [facility], [facility], [address] , [address] [place] [address], [address] [place] [address], Barrel Tester And Drainer: Mike Lau Collection Date/Time: Results Received Date/Time: Reported Date/Time: Performed By: #### 5 3348W, 4439, 6399, 42428, 2782A, 1149T, 25882, 265F, 430A, 6304R, 25601U, 95528 ####[facility] [address] [place] [address] Q - URINALYSIS WITH REFLEX T O MICROSCOPICon 08-16-2021 Appearance (U) CLEAR Normal CLEAR [facility] Rn Enterostomal Comment on above: Order Comment: Quest performed at: [facility], [facility], [address] , [address] [place] [address], [address] [place] [address], Barrel Tester And Drainer: Mike Lau Collection Date/Time: Results Received Date/Time: Reported Date/Time: Performed By: #### 5 3348W, 4439, 6399, 87901, 2782A, 1149T, 21842, 265F, 430A, 6304R, 89679U, 52513 ####[facility] [address] [place] [address] Bilirubin Ql (U) Negative Normal NEGATIVE [facility] Rn Enterostomal Comment on above: Order Comment: Quest performed at: [facility], [facility], [address], [address] [place] [address], [address] [place] [address], Barrel Tester And Drainer: Mike Lau Collection Date/Time: [id number] Results Received Date/Time: Reported Date/Time: Performed By: #### 5 3348W, 4439, 6399, 39024, 2782A, 1149T, 67654, 265F, 430A, 6304R, 75606X, 76439 ####[facility] [address] [place] [address] Color (U) YELLOW Normal YELLOW [facility] Rn Enterostomal Comment on above: Order Comment: Quest performed at: [email or web address], [facility], [address] [facility], [address] [place] [address], [address] [place] [address], Barrel Tester And Drainer: Mike Lau Collection Date/Time: Results Received Date/Time: Reported Date/Time: Performed By: #### 5 3348W, 4439, 6399, 59049, 2782A, 1149T, 12888, 265F, 430A, 6304R, 41114L, 75222 ####[facility] [address] [place] [address] Glucose Ql (U) Negative Normal NEGATIVE [facility] Rn Enterostomal Comment on above: Order Comment: Quest performed at: [facility], [facility], [address] [facility], [address] [place] [address], [address] [place] [address], Barrel Tester And Drainer: Mike Lau Collection Date/Time: Results Received Date/Time: Reported Date/Time: Performed By: #### 5 3348W, 4439, 6399, 06835, 2782A, 1149T, 92628, 265F, 430A, 6304R, 38159V, 28317 ####[facility] [address] [place] [address] Ketones Ql (U) Negative Normal NEGATIVE [facility] Rn Enterostomal Comment on above: Order Comment: Quest performed at: [facility], [facility], [address] [facility], [address] [place] [address], [address] [place] [address], Barrel Tester And Drainer: Mike Lau Collection Date/Time: [id number] Results Received Date/Time: Reported Date/Time: Performed By: #### 5 3348W, 4439, 6399, 79708, 2782A, 1149T, 36989, 265F, 430A, 6304R, 20093P, 16518 ####[facility] [address] [place] [address] Leukocyte esterase Test strip Ql (U) Negative Normal NEGATIVE [facility] Rn Enterostomal Comment on above: Order Comment: Quest performed at: [facility], [facility], [address] [facility], [address] [place] [address], [address], Barrel Tester And Drainer: Mike Lau Collection Date/Time: [id number] Results Received Date/Time: Reported Date/Time: Performed By: #### 5 3348W, 4439, 6399, 48420, 2782A, 1149T, 66976, 265F, 430A, 6304R, 50435I, 17526 ####[facility] [address] [place] [address] Nitrite Ql (U) Negative Normal NEGATIVE [facility] Rn Enterostomal Comment on above: Order Comment: Quest performed at: [facility], [facility], [address] [facility], [address] [place] [address], [address], Barrel Tester And Drainer: Mike Lau Collection Date/Time: [id number] Results Received Date/Time: Reported Date/Time: Performed By: #### 5 3348W, 4439, 6399, 99189, 2782A, 1149T, 81069, 265F, 430A, 6304R, 54248E, 75928 ####[facility] [address] [place] [address] OCCULT BLOOD Negative Normal NEGATIVE [facility] Rn Enterostomal Comment on above: Order Comment: Quest performed at: [facility], [facility], [address] [facility], [address] [place] [address], [address] [place] [address], Barrel Tester And Drainer: Mike Lau Collection Date/Time: [id number] Results Received Date/Time: [id number] Reported Date/Time: Performed By: #### 5 3348W, 4439, 6399, 42996, 2782A, 1149T, 65879, 265F, 430A, 6304R, 57781Q, 87046 ####[facility] [address] [place] [address] pH (U) 7.5 [pH] Normal 5.0-8.0 [facility] Rn Enterostomal Comment on above: Order Comment: Quest performed at: [facility], [facility], [address] [facility], [address] [place] [address], [address] [place] [address], Barrel Tester And Drainer: Mike Lau Collection Date/Time: [id number] Results Received Date/Time: Reported Date/Time: Performed By: #### 5 3348W, 4439, 6399, 48809, 2782A, 1149T, 32912, 265F, 430A, 6304R, 48872S, 80199 ####[facility] [address] [place] [address] Protein Ql (U) Negative Normal NEGATIVE [facility] Specialist Comment on above: Order Comment: Quest performed at: [facility], [employer] [facility], [address] [place] [address], [address] [place] [address], [address] [place] [address], Barrel Tester And Drainer: Mike Lau Collection Date/Time: [id number] Results Received Date/Time: Reported Date/Time: Performed By: #### 5 3348W, 4439, 6399, 05750, 2782A, 1149T, 59727, 265F, 430A, 6304R, 89933X, 44284 ####[facility] [address] [place] [address] Specific gravity (U) [Rel density] 1.015 Normal 1.001-1.035 [facility] Rn Enterostomal Comment on above: Order Comment: Quest performed at: [facility], [employer] [facility], [address] [facility], [address] [place] [address], [address] [place] [address], Barrel Tester And Drainer: Mike Lau Collection Date/Time: [id number] Results Received Date/Time: [id number] Reported Date/Time: Performed By: #### 5 3348W, 4439, 6399, 90171, 2782A, 1149T, 22842, 265F, 430A, 6304R, 66885P, 26413 ####[facility] [address] [place] [address] Q - VARICELLA-ZOSTER AB (IGG )on 08-16-2021 VARICELLA ZOSTER VIRUS ANTIBODY (IGG) 3113.00 index Normal [facility] io Rn Enterostomal Comment on above: Order Comment: Quest performed at: [facility], [facility], [address] [place] [address], [address] [place] [address], [address], Barrel Tester And Drainer: Mike Larkin MDQuest Collection Date/Time: [id number] Results Received Date/Time: [id number] Reported Date/Time: Result Comment: Inde x Interpretation [...] Performed By: #### 5 3348W, 4439, 6399, 33276, 2782A, 1149T, 70174, 265F, 430A, 6304R, 49927U, 78727 ####[facility] [address] [place] [address] RPR, External Labon 08-17-19 22 RPR, External Result Negative [facility] [employer] Phone: Rubella Titer, External Resu lton 08-16-2021 Rubella Titer, External Result immune BON CHELI [employer] Figure 1 Work Phone: [place] OB 1ST Trimesteron 2021 [...] by Eduardo Peres on 08/04/2021 0719 Normal [facility] Rn Enterostomal HIV Screenon 01-29-2020 HIV Ag/Ab REACTIVE Abnormal NONREACTIVE [place], [place] Comment on above: Followup, confirmato ry CDC recommended testing is in progress. Results reported to the appropriate Health Department Interpretation and review of laboratory results Abnormal [place], [place] Hepatitis Panel, Acuteon HAV IgM IA Qn (S) NONREACTIVE NONREACTIVE [place], [place] Hep B Core Ab, IgM NONREACTIVE NONREACTIVE [place], [place] Hepatitis B Surface Ag NONREACTIVE NONREACTIVE [place] Hepatitis C Ab NONREACTIVE NONREACTIVE [place], [place] Comment on above: The hepatitis C [...] Abon 01-28-2020 T. pallidum, IgG NONREACTIVE NONREACTIVE [place], [place] Comment on above: T. pallidum antibodies are not detected. There is no serological evidence of infection with T. pallidum (early primary syphilis cannot be excluded). Retest in 2-4 weeks if syphilis is clinically suspect. Vital Signs Date Time Vital Sign Value Performing Clinician Faci lit 03-18-2022 07:54-0500 Body temperature 98.6 [degF] Quinn Wong MD Work Phone: [facility] [employer] Figure 1 03-18-2022 07:54-0500 Diastolic blood pressure 71 mm[Hg] Quinn Wong MD [facility] Phone[facility] [employer] 03-18-2022 07:54-0500 Heart rate 73 /min Quinn Wong MD Work Phone[facility] 03-18-2022 07:54-0500 Respiratory rate 16 /min Quinn Wong MD Work Phone[facility] Figure [facility] 03-18-2022 07:54-0500 Systolic blood pressure 119 mm[Hg] Quinn Wong MD Work Phone[facility] TECHNOLOGIES 03-16-2022 10:06-0500 SaO2% (BldA) [Mass fraction] 99 % Quinn Wong MD Work Phone: [facility] [employer] 03-16-2022 05:52-0500 Body height 165.1 cm Quinn Wong MD Work Phone: [facility] 03-16-2022 05:52-0500 Body mass index (BMI) [Ratio] 31.62 kg/m2 Quinn Wong MD Work Phone: [employer] [facility] [employer] 03-16-2022 05:52-0500 Body weight 86.18 kg Quinn Wong MD Work Phone: [facility] Encounters Encounter Date Encounter Type Care Provider [...] End: 03-18-2022 Evaluation and management of inpatient Quinn Wong MD Work Phone: [facility] Labor and Delivery Comment on above: S/P repeat low trans verse (Primary Dx); Viral upper respiratory tract infection Start: 03-15-2022 End: 03-15-2022 ambulatory QUINN WONG [facility] Start: 03-15-2022 End: 03-15-2022 Subsequent hospital visit by physician Quinn Wong MD Work Phone: [facility] Labor and Delivery Start: 12-04-2020 End: 12-04-[address] TRISTIN CARRANZA Facility: Start: 01-28-2020 End: 01-28-2020 Subsequent hospital visit by physician [facility] Comment on above: Screen for STD (sexu ally transmitted disease); Encounter for well woman exam with routine gynecological exam; Screening for HPV (human papillomavirus) Procedures Date Procedure Procedure Detail Performing Clinician Start: 03-17-2022 Blood count hemoglobin Marko Herbert INSPECTOR SCALES - CN Work Phone: Start: 03-17-2022 RAMANDEEP Marko suazo INSPECTOR SCALES - CN Work Phone: Start: 03-16-2022 H/O: section S/P repe at low transverse Quinn Wong MD Work Phone: Start: 03-16-2022 Drug tst prsmv instr mnt chem analyzers pr date Quinn Wong MD Work Phone: Start: 03-15-2022 Blood count complete automated Quinn Wong MD Work Phone: Start: 02-21-2022 GBS, EXTERNAL RESULT Hi corin Provider Start: 12-28-2021 ABO, EXTERNAL RESULT Hi adrianical Provider Start: 08-16-2021 Antibody rubella Comment on above: Order Comment: [employer] performed at: [facility], [employer] [facility], [address] [place] [address], [address] [place] [address], [id number], Barrel Tester And Drainer: Mike Larkin MDQuest Collection Date/Time: Results Received Date/Time: Reported Date/Time: Result Comment: Inde x Interpretation ----- <0.90 Not consistent with immunity 0.90-0.99 Equivocal > or = 1.00 Consistent with immunity The presence of rubella IgG antibody suggests immunization or past or current infection with rubella virus. Performed By: #### 5 [id number], 4439, 6399, 60175, 2782A, 1149T, 68358, 265F, 430A, 6304R, 49710K, 41863 ####[facility] [address] [place] [address] Start: 08-16-2021 C. TRACHOMATIS, EXTE RNAL RESULT Historical Provider Start: 08-16-2021 HEPATITIS B, EXTERNA L RESULT Historical Provider Start: 08-16-2021 N. GONORRHOEAE, EXTE RNAL RESULT Historical Provider Start: 08-16-2021 RPR, EXTERNAL RESULT Hi storical Provider Start: 08-16-2021 RUBELLA TITER, EXTER NAL RESULT Historical Provider Start: 01-28-2020 Acute hepatitis panel K forden E [employer] Work Phone: Start: 01-28-2020 Antibody hiv-1&hiv-2 single result Neyda E [employer] Work Phone: Start: 01-28-2020 T. PALLIDUM AB [employer] Work Phone: Start: 01-28-2020 Microscopic observat ion [Identifier] in Cervix by Cyto stain Quinn Wong MD Work Phone: Plan of Treatment Date Care Activity Detail Author Start: 01-27-2025 Screening for malign ant neoplasm of cervix [facility] Start: 01-27-2023 Screening for malign ant neoplasm of cervix Pap smear [facility] Start: 03-16-2022 End: 03-16-2022 Admission to same day surgery center 03/16/2022 Surgery Obstetrics and Gynecology Quinn Wong MD [address] [place] [address] SECTION [facility] Labor and Delivery Comment on above: SECTION Start: 03-16-2022 End: 03-16-2022 delivery only SECTION Delivered by delivery following previous delivery 03/16/2022 7:30 AM EST [facility] Start: 10-25-2021 Influenza vaccination Flu vaccine (# 1) [facility] Start: 02-02-2021 End: 02-02-2021 Office Visit 02/02/2021 Office Visit Obstetrics and Gynecology Neyda Wiggins, INSPECTOR SCALES - CNM [address] [place] [address] [facility] Start: 11-26-2019 Influenza vaccination Flu vaccine (# 1) [facility], [place] Start: 2017 Diabetes screen Diabetes screen [facility] Start: 06-26-2003 Screening for malign ant neoplasm of cervix Cervical cancer screen [place], [place] Start: 2001 DTaP/Tdap/Td vaccine (1 - Tdap) DTaP/Tdap/Td vaccine (1 - Tdap) [facility] Start: 1997 HIV screening HIV screen [facility] [place], [place] Start: 1994 Depression Screen Depression Screen [facility] Start: 06-26-1983 Varicella vaccine (1 of 2 - 2-dose childhood series) Varicella vaccine (1 of 2 - 2-dose childhood series) [facility] Start: 1982 COVID-19 Vaccine (#1) COVID-19 Vacci ne (#1) [facility] End: 01-28-2020 C.trachomatis N.gonorrhoeae DNA, Thin Prep C.trachomatis N.gonorrhoeae DNA, Thin Prep Microbiology Routine Screen for STD (sexually transmitted disease) 1 Occurrences starting 01/28/2020 until 01/28/2020 [place], [place] Comment on above: 1 Occurrences starti ng 01/28/2020 until 01/28/2020 C.trachomatis N.gonorrhoeae DNA, Thin Prep C.trachomatis N.gonorrhoeae DNA, Thin Prep Microbiology Routine Screen for STD (sexually transmitted disease) 01/28/2020 6:29 PM [place] End: 01-28-2020 Cytopathology procedure, preparation of smear, genital source PAP SMEAR Lab Routine Encounter for well woman exam with routine gynecological exam Screening for HPV (human papillomavirus) 1 Occurrences starting 01/28/2020 until 01/28/2020 [place], [place] Comment on above: 1 Occurrences starti ng 01/28/2020 until 01/28/2020 End: 01-28-2020 HERPES PROFILE HERPES PROFILE Lab Routine Screen for STD (sexually transmitted disease) 1 Occurrences starting 01/28/2020 until 01/28/2020 [place], [place] Comment on above: 1 Occurrences starti ng 01/28/2020 until 01/28/2020 HERPES PROFILE HERPES PROFILE L ab Routine Screen for STD (sexually transmitted disease) 01/28/2020 12:12 PM [place] End: 01-28-2020 HIV 1/2 AB Multispot HIV 1/2 AB Multispot Lab Routine Once for 1 Occurrences starting 01/28/2020 until 01/28/2020 [facility] Comment on above: Once for 1 Occurrenc es starting 01/28/2020 until 01/28/2020 HIV 1/2 AB Multispot HIV 1/2 AB Multispot Lab Routine 01/28/2020 12:12 PM EST [facility] Oxygen therapy [[facility]] Initiate Oxygen Therapy Protocol Respiratory Care Routine As Needed until discontinued starting 03/16/2022 [facility] Phone: Comment on above: As Needed until disc ontinued starting 03/16/2022 RHOGAM INJECTION ONLY RHOGAM INJ ECTION ONLY Blood Bank [employer] Label Print 03/16/2022 5:15 AM EST [facility] Phone: Spirometry panel Incentive hilario metry Respiratory Care Routine Every 2hr while awake until discontinued starting 03/16/2022 [facility] Phone: Comment on above: Every 2hr while awak e until discontinued starting 03/16/2022 Spirometry panel Incentive hilario metry RT Respiratory Care Routine As Needed until discontinued starting 03/18/2022 [facility] Phone: Comment on above: As Needed until disc ontinued starting 03/18/2022 End: 03-15-2022 TYPE AND SCREEN [facility] Phone: Comment on above: One Time for 1 Occur rences starting 03/15/2022 until 03/15/2022 Immunizations Immunization Date Immunization Notes Care Provider Fa cility 03-16-2022 diphtheria, tetanus toxoids and acellular pertussis vaccine, unspecified formulation Quinn Wnog MD Work Phone: [facility] Phone: 03-16-2022 measles, mumps and rubella virus vaccine Quinn Wong MD Work Phone: [facility] Phone: 03-16-2022 RHO(Mariano) [facility] in - IM Quinn Wong MD Work Phone: [facility] Work Phone: Payers Date Payer Category Payer Unknown [id number] 2021 Unknown [id number] 2014 [facility] others[facility] [employer] [id number] 2014-Present [address] [place] [address] [id number] 1982 Unknown [id number] 2.16.840.1.504565.3.579.2 .593 1982 Unknown [id number] 2.16.840.1.512249.3.579.2 .173 1982 Unknown [id number] 2.16.840.1.453015.3.579.2 .173 1982 Unknown [id number] 2.16.840.1.846252.3.579.2 .9 1982 Unknown [id number] 2.16.840.1.030575.3.579.2 .9 1982 Unknown [id number] 2.16.840.1.483004.3.579.2 .9 1982 Unknown [id number] 2.16.840.1.768853.3.579.2 .9 1982 Unknown [id number] 2.16.840.1.267691.3.579.2 .9 1982 Unknown [id number] 2.16.840.1.625996.3.579.2 .1258 1982 Unknown [id number] 2.16.840.1.789957.3.579.2 .9 1982 Unknown [id number] 2.16.840.1.234310.3.579.2 .9 1982 Unknown [id number] 2.16.840.1.148803.3.579.2 .9 1982 Unknown [id number] 2.16.840.1.266947.3.579.2 .9 1982 Unknown [id number] 2.16.840.1.747240.3.579.2 .1258 1982 Unknown [id number] 2.16.840.1.168838.3.579.2 .1258 1982 Unknown [id number] 2.16.840.1.869425.3.579.2 .1258 1982 Unknown [id number] 2.16.840.1.731380.3.579.2 .9 Social History Date Type Detail Facility Start: 01-28-2020 [facility] [place] Start: 01-28-2020 Tobacco use and exposure Never used [place] Start: 01-28-2020 End: 03-16-2022 Alcohol intake Current drinker of alcohol (finding) [place], [place] Start: 01-28-2020 Alcohol Comment occ [place], [place] Start: 1982 Sex Assigned At Not on file M [place], [place] Start: 03-06-2022 End: 03-16-2022 Exposure to SARS-CoV-2 (event) Not sure [facility] Work Phone: Medication management note 01-04-2023 Note Date & Type Note Facility 01-04-2023 Note From: [facility] [id number] 1 To: Janeth Taylor CNP Sent: January 04, 2023 8:46:58 AM CDT Subject: Medication Management Due: January 05, 2023 8:46:58 AM CDT Originally Prescribed Drug: Drug: progesterone (progesterone 50 mg/mL intramuscular solution), INJECT 1ML IM 2X WEEK DIRECTED Quantity: 10 mL Days Supply: 30 Refills: 3 Substitutions Allowed Notes from Pharmacy: Alternative Requested:CAN ONLY GET IN THE 500/10 MG VIALS [facility] Discharge instructions 03-18-2022 Discharge Instructions Note Date & Type Note Facility 03-18-2022 Hospital Discharg e instructions Nancie Reyes RN - 03/18/2022 1:11 PM EST Follow-up with your OB doctor as specified. [facility] OB Department phone: Sri Herbert, MSN, INSPECTOR SCALES, CNM [place] [address] DIET Eat a well balanced diet focusing on foods high in fiber and protein. Drink plenty of fluids especially water. To avoid constipation you may take a mild stool softener as recommended by your doctor or fruit or nut crops farm manager. ACTIVITY Gradually increase your activity. Resume exercise regimen only after advice by your doctor or fruit or nut crops farm manager. Avoid lifting anything heavier than a gallon of milk for SIX weeks. Avoid driving until your doctor or fruit or nut crops farm manager has given their approval. Rise slowly from [...] medications as recommended by your doctor or fruit or nut crops farm manager for pain If you develop a warm, [...] vitamins as directed by your doctor or fruit or nut crops farm manager. Refer to the booklet in the folder/binder for more information. If you feel you need more assistance or have questions, please call Sveta Ely IBCLC, sales and service consultant, at or the OB department to [...] they become loose or soiled. If used, [place] should be removed by your care provider. [...] your calf. documented in this encounter [facility] Figure 1 Work Phone: History of Present illness Narrative [...] in room at this time reviewing POC. Scaler Note: I first assisted Dr Wong with [...] OR. Dr. Wong at bedside, consents signed. Aerodynamics Engineer witnessed. Fiordaliza Herbert CNM at bedside. Updated on H&P needing to be done. CNM states she will complete now. Lilian Carrington CRNA at bedside reviewing consent form. Aerodynamics Engineer witnessed. documented in this encounter [facility] [employer] Work Phone: Clinical Note 01-10-2022 Note Date [...] Placenta Anterior Grade I Weight (g) by Seuxmzqybd57.5 % * These measurements result in an [...] signed by Eduardo Peres on 01/11/2022 0642 [facility] Clinical Note 11-02-2021 Note Date & Type [...] Anterior fundal Grade I Weight (g) by Lmtlenxjwi33.0 % * These measurements result in an [...] signed by Eduardo Peres on 11/03/2021 0712 [facility] Clinical Note 12-04-2020 Note Date & Type [...] by: REGAN BATES Date: 2020-12-04 21:27 [facility] Evaluation note Note Date & Type Note Facility Evaluation note Diagnosis S/P repeat low transverse - Primary delivery, without mention of indication, unspecified as to episode of care S/P repeat low transverse delivery, without mention of indication, unspecified as to episode of care Viral upper respiratory tract infection Acute upper respiratory infections of unspecified site Term documented in this encounter [facility] [employer] Figure 1 Work Phone: Assessments Diagnosis Screen for STD [...] and content) DATE CREATED AUTHOR 12/08/2020 [facility] DATE CREATED AUTHOR AUTHOR'S ORGANIZ ATION 01/24/2022 [facility] dical Specialist DATE CREATED AUTHOR AUTHOR'S ORGANIZ ATION 03/22/2022 [facility] DATE CREATED AUTHOR AUTHOR'S ORGANIZ ATION 02/24/2023 [facility] DATE CREATED AUTHOR AUTHOR'S ORGANIZ ATION 04/24/2023 [facility] dical Specialists EPIC Care Teams (unrecognized sec tion and content) Grading Machine Feeder Relationship Specialty Start Date End Date Shanique Mark MD [address] [place] [address] PCP - General Family Medicine 03/15/22 Grading Machine Feeder Relationship Specialty Start Date End Date Shanique Mark MD [address] [place] [address] PCP - General Family Medicine 03/15/22 Reason for Visit (unrecogniz ed section and content) Reason Comments Scheduled Specialty Diagnoses / Procedures Referred By Contac t Referred To Contact Diagnoses Delivered by delivery following previous delivery Term Repeat 39 weeks. Gopi TIM to medical receptionist medical assistant. Procedures TX DELIVERY ONLY SECTION Marko Herbert APRN - CNM [address] [place] [address] [facility] [address] [place] [address] Referral ID Status Reason Start Date Expiration Date Visits Re quested Visits Authorized [id number] 1 1 Ordered Prescriptions (unrec ognized section [...] 50 mL (mini-bag) (COMPLETED) 2,000 mg, IntraVENous, WIRE BRUSHER TO O.R., 1 dose, On Mon03/16/22 at [...] - Reason: Loss of IV access)2100 (Due) deyhjxz-bwfgzs-efomx pertussis (BOOSTRIX) injection 0.5 mL 0.5 mL, [...] Provider: Jemima Ramirez RN)1058 (Given - Provider: rTixie Pérez RN)1654 (Given - Provider: Best Maddox [...] 801 (New Bag - Provider: Gabriela Carrington, INSPECTOR SCALES - BUCKLE ASSEMBLER)904 (Rate/Dose Verify - Provider: Marti Domingo RN) [...] BE BASED ON THE PRIMARY CLINICAL RECORDS. [facility] [employer] [facility]. provides no warranty or guarantee of the accuracy or completeness of information in this document.
--- NOTE | 2023-05-01 12:47 | PC.NURSE ---
Mitchell Mukherjee and 6 day old Juanito return for follow up visit. Mom states is tired but doing well. Significant other involved and supportive. Cares for 13 mo at [facility] as well as other children and takes NB as needed for Yaz to rest. Yaz voices concern that is developing mastitis. States right breast feels warmer and has uncomfortable feeling like when she had mastitis with her 13 mo daughter. No redness of breast or sore area, Just tender all over Right nipple noted to have scabbing at tip, not latching well on right side, doing well on left. Yaz reports that she is having severe bruising this C/S. Left handnoted to have large bruised area from IV, Dark black/purple bruise in anti -cubital space from blood draw, and bruising at site of spinal. Yaz then exposes abdomen, and noted to have bruising from hip bone to hip bone,higher on left side and tapers on right side. Color ranges from black/purple, to red/purple. Very tender to touch. Firmness noted on each side by hips and center. Pt denies having bruising after other C/S. States I am worried about this . VSS and assessment aamir with these exceptions. Fiordaliza Herbert [facility] notified as she is on the unit. To call scripts for antibiotics and APNO for mastitis symptoms and in to view bruising. Informs pt bruising to this degree is normal and will discuss with Dr Perez to see if blood work is needed. Pt verbalized understanding. Juanito with VSS and assessment WNL. Weight down 8.6%, feeds every 1-3 hours, latches well on left breast, more difficulty when on right side. Has 5-6 wet diapers and same for stools. Clear urine noted and parents report yellow mustard stools. No evidence of jaundice. No tongue tie or lip tie noted. Baby to breast and immediately latches at right side. Mom encouraged to use pillows for support and good positioning that allows to latch deeply and nurse comfortably. Nurses 17 min on one breast. Mom shown to care for nipples with lanolin, shells, tea bags and soothies. Verbalized understanding. To return 05/09/2023 for further support. Aware to call if symptoms do not improve or for questions. Aware of [facility] group. Leaves without questions for home.
[2023-05-01 12:49] VITALS: BP 132/77; PULSE 68; RESP 16; TEMP 36.8; O2SAT 97
== END 2023-05-01 12:10 | disposition home or self-care (01) ==
LOC: FBCO 08:49
PROVIDERS: Visit Provider Midwife
DX: Z39.1 Encounter for care and examination of lactating mother (principal)

== ENCOUNTER 2023-05-09 08:35 | Outpatient (OUT) | payer OTHER, SELFPAY ==
--- OUTSIDE RECORDS SUMMARY | 2023-05-09 08:45 | XMS_ITS | CCD ---
Author Name Unknown Address [address] [place] [address] Organization [facility] Care Team Providers Care Customer Order Clerk Name Role Phone Unavailable Primary Care Provider Unavailabl e DILLON, DR CROW Attending Unavailable MISC, DR CUELLO Primary Care Unavailable PAY, DR CROW Admitting Unavailable PAY, DR CROW Consulting Unavailable LIYA, HILARIA GUTIÉRREZ Consulting Unavailable REGAN BATES Consulting Unavailable Shanique Mark MD Primary Care Pr ovider QUINN WONG Admitting Unavailable QUINN WONG Attending Unavailable SHANIQUE MARK Primary Care Un available SHANIQUE MARK Primary Care Un available MARKO HERBERT Admitting Unavailable MARKO HERBERT Attending Unavailable Shanique Curry MD Primary Care Provider MARKO HERBERT Referring Unavailable MARKO HERBERT Attending Unavailable MARKO HERBERT Referring Unavailable FLOROMARKO Referring Unavailable FLOROMARKO Referring Unavailable FLOROMARKO Attending Unavailable FLORMARKO Sneed Attending Unavailable FLORMARKO Sneed Referring Unavailable FLOROMARKO Attending Unavailable FLOROMARKO Attending Unavailable FLOROMARKO Referring Unavailable FLOROMARKO Attending Unavailable FLOROMARKO Referring Unavailable FLOROMARKO Attending Unavailable MELVINOMARKO Referring Unavailable Medications Current Medications Medication Drug [...] Start: 03-16-2022 carboprost (HEMABATE) injection 250 mcg dicloxacillin 500 mg oral capsule (1 source) Penicillin-class Antibacterial Start: 05-01-2023 End: 05-15-2023 dicloxacillin (Dynapen) 500 MG capsule Indications: Mastitis Take 1 capsule (500 mg) by mouth in the morning and 1 capsule (500 mg) at noon and 1 capsule (500 mg) in the evening and 1 capsule (500 mg) before bedtime. Do all this for 14 days. 56 capsule 0 05/01/2023 05/15/2023 Active 1 ml diphenhydrAMINE hydrochloride 50 mg/ml cartridge [...] Active docusate sodium 50 mg / sennosides, chcf 8.6 mg oral tablet (1 source) Start: 03-16-2022 sennosides-docusate sodium (SENOKOT-S) 8.6-50 MG tablet 1 tablet 0.4 ml enoxaparin sodium 100 mg/ml prefilled syringe (1 source) Low Molecular Weight Heparin Start: 03-16-2022 enoxaparin (LOVENOX) injection 40 mg First-Progesterone VGS 200 MG suppository (1 source) Start: 09-07-2022 First-Progesterone VGS 200 MG suppository Indications: Positive test INSERT 1 SUPPOSITORY INTO THE VAGINA AT BEDTIME. 30 suppository 8 09/07/2022 Active ibuprofen 800 mg oral tablet (2 sources) [...] Start: 03-16-2022 naloxone (NARCAN) injection 0.4 mg NIFEdipine 20 mg oral capsule (1 source) Dihydropyridine Calcium Channel Omayra Start: 03-02-2023 take 1 capsule by mouth every six hours NIFEdipine (Procardia) 20 MG capsule Indications: contractions Take 1 capsule (20 mg) by mouth every 6 (six) hours 120 capsule 4 03/02/2023 Active 2 ml ondansetron 2 mg/ml injection (1 [...] (FELIPE ICODONE) immediate release tablet 5 mg 28-0.8 MG tablet (1 source) take 1 tablet by mouth once daily 28-0.8 MG tablet Take 1 tablet by mouth 1 (one) time each day at the same time. 0 Active vitamin 27-1 MG tablet 1 tablet (1 source) Start: 2 vitamin 27-1 MG tablet 1 tablet sertraline 25 mg oral tablet (1 source) Serotonin Reuptake Inhibitor Start: 4 take 1 tablet by mouth once daily in the morning sertraline (Zoloft) 25 MG tablet Indications: Anxiety, generalized (CMS/HCC) TAKE 1 TABLET BY MOUTH EVERY DAY IN THE MORNING 90 tablet 1 03/28/2023 Active simethicone 80 mg chewable tablet (1 source) Start: 2 simethicone (MYLICON) chewable tablet 80 mg 5 ml sodium chloride 9 mg/ml injection (3 sources) Start: 2 0.9 % sodium chloride infusion Start: 03-16-2022 sodium chlorid e flush [...] 20 mg/ml oral suspension (1 source) Uncompetitive Y-gfmrnw-S-aspartate Receptor Antagonist, Sigma-1 Agonist Start: 03-18-2022 End: 03-18-2022 guaiFENesin-dextrom ethorphan (ROBITUSSIN DM) 100-10 MG/5ML syrup 10 mL Ethinyl Estradiol / Ferrous fumarate / Norethindrone (3 sources) Estrogen Start: 11-04-2019 End: 03-18-2022 MICROGESTIN FE 04/15 1-20 MG-MCG per tablet Start: 11-04-2019 MICROGESTIN FE 04/15 1-20 MG-MCG per tablet famotidine (PEPCID) 20 [...] Classification Problem Date Documented Da te Episodic/Chronic Nonmalignant breast conditions (1 source) Inflammatory disorder of breast; Translations: [Mastitis without abscess] 05-01-2023 Episodic Other aftercare (1 source) Other senior care (current) drug therapy; Translations: [OTH SHELTER CURRENT DRUG THERAPY] Onset: 12-07-2020 Episodic Other [...] Not Available Outside [facility] 02-24-2023 Outside Records [id number][facility]DOM[facility]PROACHon 02-23-2023 US OB FOLLOW UP TRANSABDOMINAL APPROACH FINDINGS: Single live intrauterine . heart rate 132 bpm. Somatic motion identified. Grade 0 fundal placenta. RTAY 15.9 cm. Cervical length 4.9 cm. Estimated [...] Not Available Outside [facility] 02-22-2023 Outside Records [id number]#[facility]. [facility] - Other Lab Results [id number]#1 [facility] 01-27-2023 Outside Records [id number]# [facility] - Other Lab Results [id number]# [facility] - Other Lab Results [id number]#1 [facility] 11-30-2022 Outside Records [id number]#1. [facility] - Other Lab Results [id number]#1 [facility] 10-26-2022 Outside Records [id number]#1.0 [facility] 10-07-2022 Outside Records [id number]# [facility] - Other Lab Results [id number]#1 [facility] ROSETTEon 03-17-2022 Ramandeep Negative [facility] Rosetteon 03-17-2022 Ramandeep Negative [facility] Comment on above: Performed By: #### C FET #### [facility] [address] [place] [address] Channeler: Juan Salazar MD Hemoglobinon 03-17-2022 Hemoglobin (Bld) [Mass/Vol] 10.3 g/dL Low 11.9-15.1 [facility] Comment on above: Performed By: #### H GB #### [facility] [address] [place] [address] Channeler: Juan Salazar MD Hemoglobin (Bld) [Mass/Vol] 10.3 g/dL Low 11.9 - 15.1 g/dL [facility] Interpretation and review of laboratory results Abnormal [facility] RHIG, Transfuseon 03-17-2022 RHIG, Transfuse Unit Number [id number] Blood Component Type RHIG Unit Division 00 Status of Unit TRANSFUSED Transfusion Status OK TO TRANSFUSE Normal [facility] Comment on above: Performed By: #### T RHIG #### [facility] [address] [place] [address] Channeler: Juan Salazar MD DRUG SCREEN MULTI URINEon Amphetamine Screen, Ur Negative NEGATIVE [facility] Barbiturate Screen, Ur Negative NEGATIVE [facility] Benzodiazepine Screen, Urine Negative NEGATIVE [facility] Buprenorphine Urine Negative NEGATIVE [facility] Cannabinoid Scrn, Ur Negative NEGATIVE [facility] Cocaine Metabolite, Urine Negative NEGATIVE [facility] Methadone Screen, Urine Negative NEGATIVE [facility] Methamphetamine, Urine Negative NEGATIVE [facility] Opiates, Urine Negative NEGATIVE [facility] Oxycodone Screen, Ur Negative NEGATIVE [facility] Phencyclidine, Urine Negative NEGATIVE [facility] Propoxyphene, Urine Negative NEGATIVE [facility] Tricyclic Antidepressants, Urine Negative NEGATIVE [facility] Comment on above: Drug screen results are to be used for medical purposes only. All positive results are unconfirmed. Testing for employment or legal uses should be sent to a reference laboratory for confirmation. [facility] Drug Scr, Abuse, Uron 2021 Amphetamine(s),Ur Negative Normal [facility]G [facility] Comment on above: Performed By: #### D AU #### [facility] [address] [place] [address] Channeler: uJan Salazar MD Barbiturate(s),Ur Negative Normal NEG [facility] Comment on above: Performed By: #### D AU #### [facility] [address] [place] [address] Channeler: Juan Salazar MD Benzodiazepine(s) Negative Normal [facility]G [facility] Comment on above: Performed By: #### D AU #### [facility] [address] [place] [address] Channeler: Juan Salazar MD Buprenorphrine, Ur Negative Normal NEG [facility] Comment on above: Performed By: #### D AU #### [facility] [address] [place], [place] [address] Channeler: Juan Salazar MD Cannabinoid(s),Ur Negative Normal [facility]G [facility] Comment on above: Performed By: #### D AU #### [facility] [address] [place], [place] [id number] Channeler: Juan Salazar MD Cocaine Metabolite Negative Normal [facility] Comment on above: Performed By: #### D AU #### [facility] [address] [place] [address] [place] [place], [place] [address] Channeler: Juan Salazar MD Methadone Ql (U) Negative Normal [facility] Comment on above: Performed By: #### D AU #### [facility] [address] [place], [facility] Channeler: Juan Salazar MD Methamphetamine, Ur Negative Normal [facility] Comment on above: Performed By: #### D AU #### [address] [place], [place] [id number] Channeler: Juan Salazar MD Opiate(s), Ur Negative Normal [facility] Comment on above: Performed By: #### D AU #### [facility] [address] [place], [place] [address] Channeler: Juan Salazar MD Oxycodone, Urine Negative Normal NEG [facility] Comment on above: Performed By: #### D AU #### [facility] [address] [place] [address] Channeler: Juan Salazar MD Phencyclidine, Ur Negative Normal [facility] Comment on above: Performed By: #### D AU #### [facility] [address] [place] [address] Channeler: Juan Salazar MD Propoxyphene,Urine Negative Normal NEG [facility] Comment on above: Performed By: #### D AU #### [address] [place] [address] Channeler: Juan Salazar MD Tricyclic antidepressants Screen Ql (U) Negative Normal NEG [facility] Comment on above: Result Comment: Drug screen results are to be used for medical purposes only. All positive results are unconfirmed. Testing for employment or legal uses should be sent to a reference laboratory for confirmation. Performed By: #### D AU #### [address] [place] [address] Channeler: Juan Salazar MD OPERATIVE REPORTon OPERATIVE REPORT [address] [address] OPERATIVE REPORT PATIENT NAME: GAY MARROQUIN : 1980 MED REC NO: [id number] ROOM: [facility] ACCOUNT NO: [id number] ADMIT DATE: 03/16/2022 PROVIDER: Qunin Wong MD DATE OF PROCEDURE: 03/16/2022 PREOPERATIVE DIAGNOSIS: Term with history of two prior sections. POSTOPERATIVE DIAGNOSIS: Term with history of two prior sections. PROCEDURE PERFORMED: Repeat section, low-transverse uterine segment. SURGEON: Quinn Wong M.D. ANESTHESIA: Spinal. NEUROSURGERY PHYSICIAN: Marko Herbert. ESTIMATED BLOOD LOSS: 600 mL. COMPLICATIONS OF THE PROCEDURE: None. FINDINGS: A viable vigorous female in vertex presentation with clear amniotic fluid. [...] was extended in a semilunar fashion with metal spray operator's fingers. Uterine incision was then entered with metal spray operator's fingers. Fundal pressure placed. 's head was readily delivered and then with further fundal pressure, infant's body readily delivered as well. The cord [...] of running imbricating interlocking fashion. An additional [id number] suture was placed in the superior right [...] good condition. QUINN WONG MD DASHA/[id number] Doc#: [id number] CC: Marko Herbert Normal [facility] CBCon 03-15-2022 Erythrocyte distribution width (RBC) [Ratio] 14.1 % Normal 11.8-14.4 [facility] Comment on above: Performed By: #### C BC #### [address] [place] [address] Channeler: Juan Salazar MD Hematocrit (Bld) [Volume fraction] 38.3 % Normal 36.3-47.1 [facility] Comment on above: Performed By: #### C BC #### [address] [place] [address] Channeler: Juan Salazar MD Hemoglobin (Bld) [Mass/Vol] 13.1 g/dL Normal 11.9-15.1 [facility] Comment on above: Performed By: #### C BC #### [address] [place] [address] Channeler: Juan Salazar MD MCH (RBC) [Entitic mass] 31.6 pg Normal 25.2-33.5 [facility] Comment on above: Performed By: #### C BC #### [address] [place] [address] Channeler: Juan Salazar MD MCHC (RBC) [Mass/Vol] 34.2 g/dL Normal 28.4-34.8 [facility] Comment on above: Performed By: #### C BC #### [address] [place] [address] Channeler: Juan Salazar MD MCV (RBC) [Entitic vol] 92.3 fL Normal 82.6-102.9 [facility] Comment on above: Performed By: #### C BC #### [address] [place] [address] Channeler: Juan Salazar MD NRBC Automated 0.0 per 100 WBC Normal 0.0 [facility] Comment on above: Performed By: #### C BC #### [address] [place] [address] Channeler: Juan Salazar MD Platelet mean volume (Bld) [Entitic vol] 12.2 fL Normal 8.1-13.5 [facility] Comment on above: Performed By: #### C BC #### [facility] [address] [place] [address] Channeler: Juan Salazar MD Platelets (Bld) [#/Vol] 193 10*3/uL Normal 138-453 [facility] Comment on above: Performed By: #### C BC #### [facility] [address] [place] [address] Channeler: Juan Salazar MD RBC (Bld) [#/Vol] 4.15 10*6/uL Normal 3.95-5.11 [facility] Comment on above: Performed By: #### C BC #### [facility] [address] [place] [address] Channeler: Juan Salazar MD WBC (Bld) [#/Vol] 8.7 10*3/uL Normal 3.5-11.3 [facility] Comment on above: Performed By: #### C BC #### [facility] [address] [place] [address] Channeler: Juan Salazar MD Hematocrit (Bld) [Volume fraction] 38.3 % 36.3 - 47.1 % [facility] Hemoglobin (Bld) [Mass/Vol] 13.1 g/dL 11.9 - 15.1 g/dL [facility] MCH (RBC) [Entitic mass] 31.6 pg 25.2 - 33.5 pg [facility] MCHC (RBC) [Mass/Vol] 34.2 g/dL 28.4 - 34.8 g/dL [facility] MCV (RBC) [Entitic vol] 92.3 fL 82.6 - 102.9 fL [facility] NRBC Automated 0.0 0.0 per 100 WBC [facility] Platelet distribution width (Bld) [Ratio] 14.1 % 11.8 - 14.4 % [facility] Platelet mean volume (Bld) [Entitic vol] 12.2 fL 8.1 - 13.5 fL [facility] Platelets (Bld) [#/Vol] 193 10*3/uL [facility] RBC (Bld) [#/Vol] 4.15 10*6/uL 3.95 - 5.1 1 m/uL [facility] WBC (Bld) [#/Vol] 8.7 10*3/uL [facility] Type + Screenon 03-15-2022 Type + Screen Sample Expiration 03/18/2022,2359 Arm Band Number [id number] ABO/Rh(D) A NEGATIVE Antibody Screen POSITIVE Antibody Ident Anti-D, Passive Due To RhIG Normal [facility] Comment on above: Performed By: #### T YS #### [facility] [address] [place] [address] Channeler: Juan Salazar MD GBS, External Resulton 02-21 GBS, External Result Positive [facility] Work Phone: Comment on above: RB RN/ ALEKSANDRA RN [facility] Its [employer]iance Work Phone: US OB Limitedon 01-19-2022 US [...] by Eduardo Peres on 01/24/2022 1205 Normal [facility] ABO, External Resulton 12-28 ABO, External Result Negative [facility] Work Phone: Comment on above: RB RN/ MB RN [facility] Phone: OB 1ST Trimesteron 2021 US OB 1ST [...] by Eduardo Peres on 08/31/2021 1130 Normal [facility] C. Trachomatis, External Res [facility] 08-16-2021 C. Trachomatis, External Result Not detected [facility] Phone: Comment on above: RB RB/ ALEKSANDRA RN Hepatitis B, External Result on 08-16-2021 Hep B, External Result Non-Reactive [facility] Phone: Comment on above: MIL RN/ ALEKSANDRA DELEON N. Gonorrhoeae, External Res [facility] 08-16-2021 N. Gonorrhoeae, External Result Not detected [facility] Phone: No Panel Informationon 08-16 [facility] Phone: [facility] Phone: Q - ABO GROUP AND RH TYPEon 08-16-2021 ABO group Nom (Bld) A Normal [facility] Comment on above: Order Comment: [facility] performed at: [facility], [facility], [address] , [address], [place], [address], Evaluation Engineer: Mike Larkin MD [facility] Collection Date/Time: [facility] Results Received Date/Time: [facility] Reported Date/Time: Performed By: #### 5 3348W, 4439, 6399, 86386, 2782A, 1149T, 23084, 265F, 430A, 6304R, 12896D, 09851 #### [facility] Default [address] [place] [address] RH TYPE Negative Normal [facility] Specialist Comment on above: Order Comment: [facility] performed at: [facility], [address] , [address] [place] [address], [phone], Evaluation Engineer: Mike Larkin MD [facility] Date/Time: [facility] Results Received Date/Time: [facility] Reported Date/Time: Result Comment: For additional information, please refer to http://education.drumbi/faq/KTL702 (This link is being provided for informational/ educational purposes only.) Performed By: #### 5 3348W, 4439, 6399, 05028, 2782A, 1149T, 43518, 265F, 430A, 6304R, 42085V, 71449 #### [facility] Default [address] [place] [address] Q - ANTIBODY SCREEN,RBC W/RE FL ID,TITER AND AGon 08-16-2021 ANTIBODY SCREEN, RBC W/REFL ID, TITER AND AG Detected Normal [facility] Specialist Comment on above: Order Comment: [facility] performed at: [facility], [facility], [address] , [address] [place] [address], [phone], Evaluation Engineer: Mike Larkin MD [facility] Date/Time: [facility] Results Received Date/Time: [facility] Reported Date/Time: Result Comment: Refe rence range No antibodies detected This assay is a screening test for the detection of red blood cell antibodies. The test is not to be used for pretransfusion screening or for the medical management of an alloimmunized . Performed By: #### 5 3348W, 4439, 6399, 82207, 2782A, 1149T, 33072, 265F, 430A, 6304R, 47954A, 78498 #### [facility] Default [address] [place] [address] Q - CBC W/DIFF AND PLTon BASOABS 20 cells/uL Normal 0-200 [facility] Comment on above: Order Comment: [facility] performed at: [facility], [address] [place] [address], [address] [place] [address], [address] [place] [address], Evaluation Engineer: Mike Larkin MD [facility] Date/Time: [facility] Results Received Date/Time: [facility] Reported Date/Time: Performed By: #### 5 3348W, 4439, 6399, 93715, 2782A, 1149T, 11688, 265F, 430A, 6304R, 75849Q, 68875 #### [facility] Default [address] [place] [address] Basophils/100 WBC (Bld) 0.2 % Normal [facility] Specialist Comment on above: Order Comment: [facility] performed at: [facility], [address] [facility], [address] [place] [address], [address] [place] [address], Evaluation Engineer: Mike Larkin MD [facility] Date/Time: [facility] Results Received Date/Time: [facility] Reported Date/Time: Performed By: #### 5 3348W, 4439, 6399, 07000, 2782A, 1149T, 19206, 265F, 430A, 6304R, 19412C, 46627 #### [facility] Default [address] [place] [address] EOSABS 30 cells/uL Normal 15-500 [facility] T[facility] Comment on above: Order Comment: [facility] performed at: [facility], [address] [place] [address], [address] [place] [address], [address] [place] [address], Evaluation Engineer: Mike Larkin MD [facility] Date/Time: [facility] Results Received Date/Time: [facility] Reported Date/Time: Performed By: #### 5 3348W, 4439, 6399, 21590, 2782A, 1149T, 40702, 265F, 430A, 6304R, 23128B, 39909 #### [facility] Default [address] [place] [address] Eosinophils/100 WBC (Bld) 0.3 % Normal [facility] Comment on above: Order Comment: [facility] performed at: [facility], [facility], [address] [facility], [address] [place] [address], , Evaluation Engineer: Mike Larkin MD [facility] Date/Time: [facility] Results Received Date/Time: [facility] Reported Date/Time: Performed By: #### 5 3348W, 4439, 6399, 93738, 2782A, 1149T, 86568, 265F, 430A, 6304R, 14685I, 52517 #### [facility] Default [address] [place] [address] Erythrocyte distribution width (RBC) [Ratio] 13.2 % Normal 11.0-15.0 [facility] Comment on above: Order Comment: [facility] performed at: [facility], [facility], [address] [facility], [address] [place] [address], [phone], Evaluation Engineer: Mike Larkin MD [facility] Date/Time: [facility] Results Received Date/Time: [facility] Reported Date/Time: Performed By: #### 5 3348W, 4439, 6399, 84891, 2782A, 1149T, 79531, 265F, 430A, 6304R, 58657C, 93377 #### [facility] Default [address] [place] [address] Hematocrit (Bld) [Volume fraction] 37.0 % Normal 35.0-45.0 [facility] Comment on above: Order Comment: [facility] performed at: [facility], [facility], [address] , [address] [place] [address], [address] [place] [address], Evaluation Engineer: Mike Larkin MD [facility] Date/Time: [facility] Results Received Date/Time: [facility] Reported Date/Time: Performed By: #### 5 3348W, 4439, 6399, 58899, 2782A, 1149T, 32917, 265F, 430A, 6304R, 47508W, 40890 #### [facility] Default [address] [place] [address] Hemoglobin (Bld) [Mass/Vol] 12.5 g/dL Normal 11.7-15.5 [facility] Comment on above: Order Comment: [facility] performed at: [facility], [facility], [address] , [address] [place] [address], [phone], Evaluation Engineer: Mike Larkin MD [facility] Date/Time: [facility] Results Received Date/Time: [facility] Reported Date/Time: Performed By: #### 5 3348W, 4439, 6399, 90806, 2782A, 1149T, 53012, 265F, 430A, 6304R, 04371B, 23439 #### [facility] Default [address] [place] [address] Lymphocytes (Bld) [#/Vol] 1.921 10*3/uL Normal 850-3900 [facility] Comment on above: Order Comment: [facility] performed at: [facility], [facility], [address], [address] [place] [address], [phone], Evaluation Engineer: Mike Larkin MD [facility] Date/Time: [facility] Results Received Date/Time: [facility] Reported Date/Time: Performed By: #### 5 3348W, 4439, 6399, 39044, 2782A, 1149T, 18893, 265F, 430A, 6304R, 49897T, 76137 #### [facility] Default [address] [place] [address] Lymphocytes/100 WBC (Bld) 19.4 % Normal [facility] Comment on above: Order Comment: [facility] performed at: [facility], [facility], [address] [facility] [facility], [address] [place] [address], [phone], Evaluation Engineer: Mike Larkin MD [facility] Date/Time: [facility] Results Received Date/Time: [facility] Reported Date/Time: Performed By: #### 5 3348W, 4439, 6399, 24651, 2782A, 1149T, 60035, 265F, 430A, 6304R, 97934C, 15188 #### [facility] Default [address] [place] [address] MCH (RBC) [Entitic mass] 30.4 pg Normal 27.0-33.0 [facility] Babcock Tester Comment on above: Order Comment: [facility] Testing performed at: [facility], [facility], 5 [facility], [address] [place] [address], [phone], Evaluation Engineer: Mike Larkin MD [facility] Date/Time: [facility] Results Received Date/Time: [facility] Reported Date/Time: Performed By: #### 5 3348W, 4439, 6399, 15056, 2782A, 1149T, 27868, 265F, 430A, 6304R, 32375C, 59836 #### [facility] Default [address] [place] [address] MCHC (RBC) [Mass/Vol] 33.8 g/dL Normal 32.0-36.0 [facility] Babcock Tester Comment on above: Order Comment: [facility] performed at: [facility], [facility], 875 [facility], [address] [place] [address], [phone], Evaluation Engineer: Mike Larkin MD [facility] Date/Time: [facility] Results Received Date/Time: [facility] Reported Date/Time: Performed By: #### 5 3348W, 4439, 6399, 49206, 2782A, 1149T, 73770, 265F, 430A, 6304R, 15981A, 43920 #### [facility] Default [address] [place] [address] MCV (RBC) [Entitic vol] 90.0 fL Normal 80.0-100.0 [facility] Specialist Comment on above: Order Comment: [facility] performed at: [facility], [facility], 5 [facility], [address] [place] [address], [phone], Evaluation Engineer: Mike Larkin MD [facility] Collection Date/Time: [facility] Results Received Date/Time: [facility] Reported Date/Time: Performed By: #### 5 3348W, 4439, 6399, 42291, 2782A, 1149T, 14587, 265F, 430A, 6304R, 96921O, 24192 #### [facility] Default [address] [place] [address] MONOABS 584 cells/uL Normal 200-950 [facility] Babcock Tester Comment on above: Order Comment: [facility] performed at: [facility], [facility], [address] [place] [address], [address] [place] [address], [phone], Evaluation Engineer: Mike Larkin MD [facility] Date/Time: [facility] Results Received Date/Time: [facility] Reported Date/Time: Performed By: #### 5 3348W, 4439, 6399, 44577, 2782A, 1149T, 11091, 265F, 430A, 6304R, 71267U, 98953 #### [facility] Default [address] [place] [address] Monocytes/100 WBC (Bld) 5.9 % Normal [facility] Babcock Tester Comment on above: Order Comment: [facility] Testing performed at: [facility], [facility], 5 [facility], [address] [place] [address], [address] [place] [address], Evaluation Engineer: Mike Larkin MD [facility] Date/Time: [facility] Results Received Date/Time: [facility] Reported Date/Time: Performed By: #### 5 3348W, 4439, 6399, 38564, 2782A, 1149T, 81657, 265F, 430A, 6304R, 41618Q, 38851 #### [facility] Default [address] [place] [address] Neutrophils (Bld) [#/Vol] 7.346 10*3/uL Normal 9454-9165 [facility] Babcock Tester Comment on above: Order Comment: [facility] Testing performed at: [facility], [address] [place] [address], [address] [place] [address], Evaluation Engineer: Mike Larkin MD [facility] Collection Date/Time: [facility] Results Received Date/Time: [facility] Reported Date/Time: Performed By: #### 5 3348W, 4439, 6399, 00410, 2782A, 1149T, 85628, 265F, 430A, 6304R, 08547Q, 31164 #### [facility] Default [address] [place] [address] Neutrophils/100 WBC (Bld) 74.2 % Normal [facility] Specialist Comment on above: Order Comment: [facility] Testing performed at: [facility], [address] [place] [address], [address] [place] [address], [address] [place] [address], Evaluation Engineer: Mike Larkin MD [facility] Date/Time: [facility] Results Received Date/Time: [facility] Reported Date/Time: Performed By: #### 5 3348W, 4439, 6399, 09969, 2782A, 1149T, 11427, 265F, 430A, 6304R, 67875O, 41938 #### [facility] Default [address] [place] [address] Platelet mean volume (Bld) [Entitic vol] 14.2 fL High 7.5-12.5 [facility] Babcock Tester Comment on above: Order Comment: [facility] performed at: [facility], [facility], [address] [place] [address], [address] [place] [address], [address] [place] [address], Evaluation Engineer: Mike Larkin MD [facility] Collection Date/Time: [facility] Results Received Date/Time: [facility] Reported Date/Time: Performed By: #### 5 3348W, 4439, 6399, 94715, 2782A, 1149T, 71872, 265F, 430A, 6304R, 98672X, 32104 #### [facility] Default [address] [place] [address] Platelets (Bld) [#/Vol] 167 10*3/uL Normal 140-400 [facility] Comment on above: Order Comment: [facility] Testing performed at: [facility], [facility], [address], [address] [place] [address], [address] [place] [address], Evaluation Engineer: Mike Larkin MD [facility] Collection Date/Time: [facility] Results Received Date/Time: [facility] Reported Date/Time: Performed By: #### 5 3348W, 4439, 6399, 66309, 2782A, 1149T, 95192, 265F, 430A, 6304R, 48940S, 73248 #### [facility] Default [address] [place] [address] RBC (Bld) [#/Vol] 4.11 10*6/uL Normal 3.80-5.10 [facility] Comment on above: Order Comment: [facility] Testing performed at: [facility], [facility], 5 [facility], [address] [place] [address], [address] [place] [address], Evaluation Engineer: Mike Larkin MD [facility] Collection Date/Time: [facility] Results Received Date/Time: [facility] Reported Date/Time: Performed By: #### 5 3348W, 4439, 6399, 28921, 2782A, 1149T, 29276, 265F, 430A, 6304R, 75977S, 47452 #### [facility] Default [address] [place] [address] WBC (Bld) [#/Vol] 9.9 10*3/uL Normal 3.8-10.8 [facility] Comment on above: Order Comment: [facility] Testing performed at: [facility], [facility], [address] , [address] [place] [address], [address] [place] [address], Evaluation Engineer: Mike Larkin MD [facility] Collection Date/Time: [facility] Results Received Date/Time: [facility] Reported Date/Time: Performed By: #### 5 3348W, 4439, 6399, 99002, 2782A, 1149T, 63252, 265F, 430A, 6304R, 02438C, 54306 #### [facility] Default [address] [place] [address] Q - CHLAMYDIA TRACHOMATIS/NE ISSERIA GONORRHOEAE RNA TMAon 08-16-2021 CHLAMYDIA TRACHOMATIS RNA, TMA, UROGENITAL Not detected Normal NOT DETECTED [facility] Specialist Comment on above: Order Comment: [facility] Testing performed at: [facility], [facility], [address], [address] [place] [address], [address] [place] [address], Evaluation Engineer: Mike Larkin MD [facility] Collection Date/Time: [facility] Results Received Date/Time: [facility] Reported Date/Time: Performed By: #### 5 3348W, 4439, 6399, 15134, 2782A, 1149T, 81646, 265F, 430A, 6304R, 69950B, 34328 #### [facility] Default [address] [place] [address] COMMENT SEE NOTE Normal [facility] Babcock Tester Comment on above: Order Comment: [facility] Testing performed at: [facility], [facility], [address], [address] [place] [address], [address] [place] [address], Evaluation Engineer: Mike Larkin MD [facility] Collection Date/Time: [facility] Results Received Date/Time: [facility] Reported Date/Time: Result Comment: The analytical performance characteristics of this assay, when used to test SurePath(TM) specimens have been determined by [facility]. The modifications have not been cleared or approved by the FDA. This assay has been validated pursuant to the CLIA regulations and is used for clinical purposes. For additional information, please refer to https://education.Ranker/faq/KDB742 (This link is being provided for information/ educational purposes only.) Performed By: #### 5 3348W, 4439, 6399, 37474, 2782A, 1149T, 98269, 265F, 430A, 6304R, 40551B, 21074 #### [facility] Default [address] [place] [address] Result Comment: See Note 1 Note 1 This drug testing is for medical treatment only. Analysis was performed as non-forensic testing and these results should be used only by healthcare providers to render diagnosis or treatment, or to monitor progress of medical conditions. For assistance with interpreting these drug results, please contact a [facility] Toxicology Specialist: [phone] ( [phone] M-F, 8am-6pm EST. NEISSERIA GONORRHOEAE RNA, TMA, UROGENITAL Not detected Normal NOT DETECTED [facility] Babcock Tester Comment on above: Order Comment: [employer] Testing performed at: Q, [facility], [address] [place] [address], [address] [place] [address], [phone], Evaluation Engineer: Mike Larkin MD [facility] Collection Date/Time: [facility] Results Received Date/Time: [facility] Reported Date/Time: Performed By: #### 5 3348W, 4439, 6399, 02852, 2782A, 1149T, 64050, 265F, 430A, 6304R, 93002Y, 88726 #### [facility] Default [address] [place] [address] Q - CULTURE,URINE,ROUTINEon 08-16-2021 CULTURE, URINE, ROUTINE SEE NOTE Normal [facility] Babcock Tester Comment on above: Order Comment: [facility] performed at: [facility], [facility], 5 [facility], [address] [place] [address], [phone], Evaluation Engineer: Mike Larkin MD [facility] Collection Date/Time: [facility] Results Received Date/Time: [facility] Reported Date/Time: Result Comment: CULT URE, URINE, ROUTINE Micro Number: [id number] Test Status: Final Specimen Source: Urine Specimen Quality: Adequate Result: Mixed genital chico isolated. These superficial bacteria are not indicative of a urinary tract infection. No further organism identification is warranted on this specimen. If clinically indicated, recollect clean-catch, mid-stream urine and transfer immediately to Urine Culture Transport Tube. Performed By: #### 5 3348W, 4439, 6399, 50700, 2782A, 1149T, 54861, 265F, 430A, 6304R, 03985I, 80569 #### [facility] Default [address] [place] [address] Q - DRUG TOX MONITORING 6 CONFIRMATION,URINEon 08-16-2021 Amphetamines Negative Normal <500 [facility] Babcock Tester Comment on above: Order Comment: [facility] Testing performed at: [facility], 5 [facility], [address] [place] [address], [phone], Evaluation Engineer: Mike Larkin MD [facility] Collection Date/Time: [facility] Results Received Date/Time: [facility] Reported Date/Time: Performed By: #### 5 3348W, 4439, 6399, 83796, 2782A, 1149T, 35394, 265F, 430A, 6304R, 41892F, 66086 #### [facility] Default [address] [place] [address] Barbiturates Negative Normal <300 [facility] Babcock Tester Comment on above: Order Comment: [facility] Testing performed at: [facility], [facility], [address] , [address] [place] [address], [address] [place] [address], Evaluation Engineer: Mike Larkin MD [facility] Collection Date/Time: [facility] Results Received Date/Time: [facility] Reported Date/Time: Performed By: #### 5 3348W, 4439, 6399, 88689, 2782A, 1149T, 27942, 265F, 430A, 6304R, 89571M, 06647 #### [facility] Default [address] [place] [address] Benzodiazepines Negative Normal <100 [facility] Comment on above: Order Comment: [facility] Testing performed at: [employer], [facility], [address] [place] [address], [address] [place] [address], [address] [place] [address], Evaluation Engineer: Mike Larkin MD [facility] Collection Date/Time: [facility] Results Received Date/Time: [facility] Reported Date/Time: Performed By: #### 5 3348W, 4439, 6399, 67868, 2782A, 1149T, 57363, 265F, 430A, 6304R, 87667C, 31534 #### [facility] Default [address] [place] [address] Cocaine Metabolite Negative Normal <150 [facility] Comment on above: Order Comment: [facility] Testing performed at: [facility], [facility], [address] [place] [address], [address] [place] [address], [address] [place] [address], Evaluation Engineer: Mike Larkin MD [facility] Collection Date/Time: [facility] Results Received Date/Time: [facility] Reported Date/Time: Performed By: #### 5 3348W, 4439, 6399, 15912, 2782A, 1149T, 38336, 265F, 430A, 6304R, 36007S, 83444 #### [facility] Default [address] [place] [address] Marijuana Metabolite 20 Negative Normal <20 [facility] Comment on above: Order Comment: [facility] Testing performed at: [facility], [facility], [address] [facility], [address] [place] [address], [address] [place] [address], Evaluation Engineer: Mike Larkin MD [facility] Collection Date/Time: [facility] Results Received Date/Time: [facility] Reported Date/Time: Performed By: #### 5 3348W, 4439, 6399, 71732, 2782A, 1149T, 43445, 265F, 430A, 6304R, 23571F, 62192 #### [facility] Default [address] [place] [address] Methadone Metabolite Negative Normal <[address] [facility] Comment on above: Order Comment: [facility] Testing performed at: [facility], [address] [place] [address], [address] [place] [address], [address] [place] [address], Evaluation Engineer: Mike Larkin MD [facility] Collection Date/Time: [facility] Results Received Date/Time: [facility] Reported Date/Time: Performed By: #### 5 3348W, 4439, 6399, 53790, 2782A, 1149T, 37792, 265F, 430A, 6304R, 82314C, 44722 #### [facility] Default [address] [place] [address] Opiates Negative Normal <100 [facility] Comment on above: Order Comment: [facility] Testing performed at: [facility], [address] [place] [address], [address] [place] [address], [address] [place] [address], Evaluation Engineer: Mike Larkin MD [facility] Collection Date/Time: [facility] Results Received Date/Time: [facility] Reported Date/Time: Performed By: #### 5 3348W, 4439, 6399, 76855, 2782A, 1149T, 47874, 265F, 430A, 6304R, 29502J, 03448 #### [facility] Default [address] [place] [address] Oxycodone Negative Normal <100 [facility] Specialist Comment on above: Order Comment: [facility] Testing performed at: [facility], [facility], [address] , [address] [place] [address], [address] [place] [address], Evaluation Engineer: Mike Larkin MD [facility] Collection Date/Time: [facility] Results Received Date/Time: [facility] Reported Date/Time: Performed By: #### 5 3348W, 4439, 6399, 06350, 2782A, 1149T, 41762, 265F, 430A, 6304R, 74844C, 18634 #### [facility] Default [address] [place] [address] Phencyclidine Negative Normal <25 [facility] Babcock Tester Comment on above: Order Comment: [facility] Testing performed at: [facility], [facility], [address] [facility], [address] [place] [address], [address] [place] [address], Evaluation Engineer: Mike Larkin MD [facility] Collection Date/Time: [facility] Results Received Date/Time: [facility] Reported Date/Time: Performed By: #### 5 3348W, 4439, 6399, 21407, 2782A, 1149T, 10329, 265F, 430A, 6304R, 49234C, 05000 #### [facility] Default [address] [place] [address] Q - HEPATITIS B SURFACE ANTI GEN W/ REFLEXon 08-16-2021 HEPATITIS B SURFACE ANTIGEN Non-Reactive Normal NON-REACTIVE [facility] Babcock Tester Comment on above: Order Comment: [facility] Testing performed at: [facility], [address] , [address] [place] [address], [address] [place] [address], Evaluation Engineer: Mike Larkin MD [facility] Collection Date/Time: [facility] Results Received Date/Time: [facility] Reported Date/Time: Performed By: #### 5 3348W, 4439, 6399, 48647, 2782A, 1149T, 54505, 265F, 430A, 6304R, 45152K, 93992 #### [facility] Default [address] [place] [address] Q - HIV 1/2 ANTIGEN/ANTIBODY ,FOURTH GENERATION W/RFLon 08-16-2021 HIV AG/AB, 4TH GEN Non-Reactive Normal NON-REACTIVE No [facility]n [facility] Comment on above: Order Comment: [facility] performed at: [facility], [facility], [address] [facility], [address] [place] [address], [phone], Evaluation Engineer: Mike Larkin MDQuest Collection Date/Time: [id number] Results Received Date/Time: [id number] Reported Date/Time: Result Comment: HIV- 1 antigen [...] purpose. For additional information please refer to http://education.Tapshot, [employer] Vide[employer].KwiClick/faq/CCS580 (This link is being provided for informational/ educational purposes only.) The performance of this assay has not been clinically validated in patients less than 2 years old. Performed By: #### 5 3348W, 4439, 6399, 82737, 2782A, 1149T, 04684, 265F, 430A, 6304R, 20964Y, 21887 ####[facility] [address] [place] [address] Q - RPR (MONITOR) W/RFX TITE Luan 08-16-2021 RPR (MONITOR) W/REFL TITER Non-Reactive Normal NON-REACTIVE [facility] Comment on above: Order Comment: [facility] performed at: [facility], [facility], [address] , [address] [place], [address], Evaluation Engineer: Mike Larkin MDQuest Collection Date/Time: [id number] Results Received Date/Time: Reported Date/Time: Performed By: #### 5 3348W, 4439, 6399, 11298, 2782A, 1149T, 07684, 265F, 430A, 6304R, 89949H, 70308 ####[facility] [address] [place] [address] Q - URINALYSIS WITH REFLEX T O MICROSCOPICon 08-16-2021 Appearance (U) CLEAR Normal CLEAR [facility] Babcock Tester Comment on above: Order Comment: [facility] performed at: [facility], [facility], [address] [facility], [address] [place] [address], [address] [place] [address], Evaluation Engineer: Mike Lau Collection Date/Time: Results Received Date/Time: Reported Date/Time: Performed By: #### 5 3348W, 4439, 6399, 57939, 2782A, 1149T, 61131, 265F, 430A, 6304R, 65924D, 11865 ####[facility] [address] [place] [address] Bilirubin Ql (U) Negative Normal NEGATIVE [facility] Babcock Tester Comment on above: Order Comment: [facility] performed at: [facility], [facility], [address] [facility], [address] [place] [address], [address] [place] [address], Evaluation Engineer: Mike Lau Collection Date/Time: Results Received Date/Time: Reported Date/Time: Performed By: #### 5 3348W, 4439, 6399, 27836, 2782A, 1149T, 64170, 265F, 430A, 6304R, 59730F, 04331 ####[facility] [address] [place] [address] Color (U) YELLOW Normal YELLOW [facility] Babcock Tester Comment on above: Order Comment: [facility] performed at: [facility], [facility], [address] [facility], [address] [place] [address], [address] [place] [address], Evaluation Engineer: Mike Lau Collection Date/Time: Results Received Date/Time: Reported Date/Time: Performed By: #### 5 3348W, 4439, 6399, 94508, 2782A, 1149T, 60074, 265F, 430A, 6304R, 33134M, 47823 ####[facility] [address] [place] [address] Glucose Ql (U) Negative Normal NEGATIVE [facility] Specialist Comment on above: Order Comment: [facility] performed at: [facility], [address] [place] [address], [address] [place] [address], [address] [place] [address], Evaluation Engineer: Mike Lau Collection Date/Time: Results Received Date/Time: Reported Date/Time: Performed By: #### 5 3348W, 4439, 6399, 16069, 2782A, 1149T, 94922, 265F, 430A, 6304R, 46850S, 34014 ####[facility] [address] [place] [address] Ketones Ql (U) Negative Normal NEGATIVE [facility] Specialist Comment on above: Order Comment: [facility] performed at: [facility], [facility], [address] [place] [address], [address] [place] [address], [address], Evaluation Engineer: Mike Lau Collection Date/Time: Results Received Date/Time: Reported Date/Time: Performed By: #### 5 3348W, 4439, 6399, 17301, 2782A, 1149T, 57863, 265F, 430A, 6304R, 62693P, 31237 ####[facility] [address] [place] [address] Leukocyte esterase Test strip Ql (U) Negative Normal NEGATIVE [facility] Bab[facility] Tester Comment on above: Order Comment: [facility] performed at: [facility], [facility], [address] [facility], [address] [place] [address], [address] [place] [address], Evaluation Engineer: Mike Lau Collection Date/Time: Results Received Date/Time: Reported Date/Time: Performed By: #### 5 3348W, 4439, 6399, 27548, 2782A, 1149T, 35673, 265F, 430A, 6304R, 73072Q, 33825 ####[facility] [address] [place] [address] Nitrite Ql (U) Negative Normal NEGATIVE [facility] Babcock Tester Comment on above: Order Comment: [facility] performed at: [facility], [facility], 5 [facility], [address] [place] [address], [address] [place] [address], Evaluation Engineer: Mike Lau Collection Date/Time: [id number] Results Received Date/Time: Reported Date/Time: Performed By: #### 5 3348W, 4439, 6399, 13005, 2782A, 1149T, 43191, 265F, 430A, 6304R, 07888S, 32135 ####[facility] [address] [place] [address] OCCULT BLOOD Negative Normal NEGATIVE [facility] Babcock Tester Comment on above: Order Comment: [facility] performed at: [facility], [facility], [address] [place] [address], [address] [place] [address], [address] [place] [address], Evaluation Engineer: Mike Lau Collection Date/Time: [id number] Results Received Date/Time: Reported Date/Time: Performed By: #### 5 3348W, 4439, 6399, 06459, 2782A, 1149T, 09217, 265F, 430A, 6304R, 80622S, 34882 ####[facility] [address] [place] [address] pH (U) 7.5 [pH] Normal 5.0-8.0 [facility] Babcock Tester Comment on above: Order Comment: [facility] performed at: [facility], [facility], [address] [facility], [address] [place] [address], [address] [place] [address], Evaluation Engineer: Mike Lau Collection Date/Time: Results Received Date/Time: Reported Date/Time: Performed By: #### 5 3348W, 4439, 6399, 89527, 2782A, 1149T, 40941, 265F, 430A, 6304R, 20045H, 30968 ####[facility] [address] [place] [address] Protein Ql (U) Negative Normal NEGATIVE [facility] Babcock Tester Comment on above: Order Comment: [facility] performed at: [facility], [facility], 5 [facility], [address] [place] [address], [address] [place] [address], Evaluation Engineer: Mike Lau Collection Date/Time: Results Received Date/Time: Reported Date/Time: Performed By: #### 5 3348W, 4439, 6399, 05453, 2782A, 1149T, 25076, 265F, 430A, 6304R, 40216V, 91958 ####[facility] [address] [place] [address] Specific gravity (U) [Rel density] 1.015 Normal 1.001-1.035 [facility] Babcock Tester Comment on above: Order Comment: [facility] performed at: [facility], [facility], [address] [facility], [address] [place] [address], [address] [place] [address], Evaluation Engineer: Mike Lau Collection Date/Time: Results Received Date/Time: Reported Date/Time: Performed By: #### 5 3348W, 4439, 6399, 18760, 2782A, 1149T, 70565, 265F, 430A, 6304R, 18664Y, 19957 ####[facility] [address] [place] [address] Q - VARICELLA-ZOSTER AB (IGG )on 08-16-2021 VARICELLA ZOSTER VIRUS ANTIBODY (IGG) 3113.00 index Normal [facility] io Babcock Tester Comment on above: Order Comment: Ever performed at: Q, [employer], [address] [facility], [address], [place], [address], Evaluation Engineer: Mike Larkin MDQuest Collection Date/Time: [id number] Results Received Date/Time: [id number] Reported Date/Time: Result Comment: Inde x Interpretation [...] Performed By: #### 5 3348W, 4439, 6399, 48554, 2782A, 1149T, 16927, 265F, 430A, 6304R, 48874O, 44603 ####[facility] [id number] [place] [address] RPR, External Labon 08-17-19 22 RPR, External Result Negative [facility] Phone: Rubella Titer, External Resu lton 08-16-2021 Rubella Titer, External Result immune [facility] Phone: US OB 1ST Trimesteron 2021 US [...] by Eduardo Peres on 08/04/2021 0719 Normal [facility] Babcock Tester HIV Screenon 01-29-2020 HIV Ag/Ab REACTIVE Abnormal NONREACTIVE [place], [place] Comment on above: Followup, confirmato ry CDC recommended testing is in progress. Results reported to the appropriate Health Department Interpretation and review of laboratory results Abnormal [place] Hepatitis Panel, Acuteon HAV IgM IA Qn (S) NONREACTIVE NONREACTIVE [place] Hep B Core Ab, IgM NONREACTIVE NONREACTIVE [place], [place] Hepatitis B Surface Ag NONREACTIVE NONREACTIVE [place] Hepatitis C Ab NONREACTIVE NONREACTIVE [place] Comment on above: The hepatitis C [...] Abon 01-28-2020 T. pallidum, IgG NONREACTIVE NONREACTIVE [place] Comment on above: T. pallidum antibodies are not detected. There is no serological evidence of infection with T. pallidum (early primary syphilis cannot be excluded). Retest in 2-4 weeks if syphilis is clinically suspect. Vital Signs Date Time Vital Sign Value Performing Clinician Faci lity 03-18-2022 07:54-0500 Body temperature 98.6 [degF] Quinn Wong MD Work Phone: [facility] [employer] 03-18-2022 07:54-0500 Diastolic blood pressure 71 mm[Hg] Quinn Wong MD Work Phone: [facility] [employer] 03-18-2022 07:54-0500 Heart rate 73 /min Quinn Wong MD Work Phone: [facility] 03-18-2022 07:54-0500 Respiratory rate 16 /min Quinn Wong MD Work Phone: [facility] [employer] 03-18-2022 07:54-0500 Systolic blood pressure 119 mm[Hg] Quinn Wong MD Work Phone: [facility] [employer] 03-16-2022 10:06-0500 SaO2% (BldA) [Mass fraction] 99 % Quinn Wong MD Work Phone: [facility] 03-16-2022 05:52-0500 Body height 165.1 cm Quinn Wong MD Work Phone: [facility] [employer] 03-16-2022 05:52-0500 Body mass index (BMI) [Ratio] 31.62 kg/m2 Quinn Wong MD Work Phone: [facility] [employer] 03-16-2022 05:52-0500 Body weight 86.18 kg Quinn Wong MD Work Phone: [facility] [employer] Encounters Encounter Date Encounter Type Care Provider Facility Start: 05-02-2023 End: 05-03-2023 ambulatory MARKO L FLORO Not Available Start: 05-01-2023 Orders Only Marko L Melvin o CNM Work Phone: [facility] Comment on above: Mastitis (Primary Dx ) Start: 04-20-2023 End: 04-21-2023 ambulatory MARKO L [...] of inpatient Quinn Wong MD Work Phone: [facility] Labor and Delivery Comment on above: S/P repeat low trans verse (Primary Dx); Viral upper respiratory tract infection Start: 03-15-2022 End: 03-15-2022 ambulatory QUINN WONG [facility] Start: 03-15-2022 End: 03-15-2022 Subsequent hospital visit by physician Quinn Wong MD Work Phone: [facility] Labor and Delivery Start: 12-04-2020 End: 12-04-[address] TRISTIN CARRANZA Facility:H1 Start: 01-28-2020 End: 01-28-2020 Subsequent hospital visit by physician [facility] Comment on above: Screen for STD (sexu ally transmitted disease); Encounter for well woman exam with routine gynecological exam; Screening for HPV (human papillomavirus) Procedures Date Procedure Procedure Detail Performing Clinician Start: 03-17-2022 Blood count hemoglobin Marko Herbert CARDIOPULMONARY TECHNICIAN AND EEG TECH - CN Work Phone: Start: 03-17-2022 RAMANDEEP Marko suazo CARDIOPULMONARY TECHNICIAN AND EEG TECH - CN Work Phone: Start: 03-16-2022 H/O: section S/P repe at low transverse Quinn Wong MD Work Phone: Start: 03-16-2022 Drug tst prsmv instr mnt chem analyzers pr date Quinn Wong MD Work Phone: Start: 03-15-2022 Blood count complete automated Quinn Wong MD Work Phone: Start: 02-21-2022 GBS, EXTERNAL RESULT Hi corin Provider Start: 12-28-2021 ABO, EXTERNAL RESULT [place] corin Provider Start: 08-16-2021 Antibody rubella Comment on above: Order Comment: [employer] performed at: [facility], [employer], [address] [place] [address], [address] [place] [address], [phone], Evaluation Engineer: Mike Larkin MDQuest Collection Date/Time: Results Received Date/Time: Reported Date/Time: Result Comment: Inde x Interpretation ----- <0.90 Not consistent with immunity 0.90-0.99 Equivocal > or = 1.00 Consistent with immunity The presence of rubella IgG antibody suggests immunization or past or current infection with rubella virus. Performed By: #### 5 3348W, 4439, 6399, 30466, 2782A, 1149T, 39351, 265F, 430A, 6304R, 76566X, 92527 ####[facility] [id number] [place] [address] Start: 08-16-2021 C. TRACHOMATIS, EXTE RNAL RESULT Historical Provider Start: 08-16-2021 HEPATITIS B, EXTERNA L RESULT Historical Provider Start: 08-16-2021 N. GONORRHOEAE, EXTE RNAL RESULT Historical Provider Start: 08-16-2021 RPR, EXTERNAL RESULT Hi storical Provider Start: 08-16-2021 RUBELLA TITER, EXTER NAL RESULT Historical Provider Start: 01-28-2020 Acute hepatitis panel [employer] Work Phone: Start: 01-28-2020 Antibody hiv-1&hiv-2 single result Neyda E Lazy Angel Work Phone: Start: 01-28-2020 T. PALLIDUM AB [employer] Work Phone: Start: 01-28-2020 Microscopic observat ion [Identifier] in Cervix by Cyto stain Quinn Wong MD Work Phone: Plan of Treatment Date Care Activity Detail Author Start: 07-07-2027 Screening for malign ant neoplasm of cervix [facility] Start: 01-27-2025 Screening for malign ant neoplasm of cervix [facility] Start: 05-02-2023 End: 05-02-2023 ambulatory 05/02/2023 1:00 PM EST Visit [facility] [address] [place] [id number] Marko Herbert, CNM [address] [place] [address] [facility] Start: 01-27-2023 Screening for malign ant neoplasm of cervix Pap smear [facility] Start: 2022 Screening for malign ant neoplasm of breast Mammogram [facility] Start: 03-16-2022 End: 03-16-2022 Admission to same day surgery center 03/16/2022 Surgery Obstetrics and Gynecology Quinn Wong MD [address] [place] [address] [address] [place] [address] SECTION [facility] Labor and Delivery Comment on above: SECTION Start: 03-16-2022 End: 03-16-2022 delivery only SECTION Delivered by delivery following previous delivery 03/16/2022 7:30 AM [facility] Start: 10-25-2021 Influenza vaccination Flu vaccine (# 1) [facility] Start: 02-02-2021 End: 02-02-2021 Office Visit 02/02/2021 Office Visit Obstetrics and Gynecology Neyda Wiggins, CARDIOPULMONARY TECHNICIAN AND EEG TECH - CNM [address] [facility] [address] [place] [address] [facility] Start: 11-26-2019 Influenza vaccination Flu vaccine (# 1) [place], [place] Start: 2017 Diabetes screen Diabetes screen [facility] Start: 06-26-2003 Screening for malign ant neoplasm of cervix [facility] Start: 2001 DTaP/Tdap/Td vaccine (1 - Tdap) DTaP/Tdap/Td vaccine (1 - Tdap) [facility] Start: 1997 HIV screening HIV screen [place], [place] Start: 1994 Depression Screen Depression Screen [facility] Start: 06-26-1983 Varicella vaccine (1 of 2 - 2-dose childhood series) Varicella vaccine (1 of 2 - 2-dose childhood series) [facility] Start: 1982 COVID-19 Vaccine (#1) COVID-19 Vacci ne (#1) [facility] End: 01-28-2020 C.trachomatis N.gonorrhoeae DNA, Thin Prep C.trachomatis N.gonorrhoeae DNA, Thin Prep Microbiology Routine Screen for STD (sexually transmitted disease) 1 Occurrences starting 01/28/2020 until 01/28/2020 [place] Comment on above: 1 Occurrences starti ng 01/28/2020 until 01/28/2020 C.trachomatis N.gonorrhoeae DNA, Thin Prep C.trachomatis N.gonorrhoeae DNA, Thin Prep Microbiology Routine Screen for STD (sexually transmitted disease) 01/28/2020 6:29 PM [place], [place] End: 01-28-2020 Cytopathology procedure, preparation of smear, genital source PAP SMEAR Lab Routine Encounter for well woman exam with routine gynecological exam Screening for HPV (human papillomavirus) 1 Occurrences starting 01/28/2020 until 01/28/2020 [facility] [place] Comment on above: 1 Occurrences starti ng 01/28/2020 until 01/28/2020 End: 01-28-2020 HERPES PROFILE HERPES PROFILE Lab Routine Screen for STD (sexually transmitted disease) 1 Occurrences starting 01/28/2020 until 01/28/2020 [facility] [place] Comment on above: 1 Occurrences starti ng 01/28/2020 until 01/28/2020 HERPES PROFILE HERPES PROFILE L ab Routine Screen for STD (sexually transmitted disease) 01/28/2020 12:12 PM Counts include 234 beds at the [facility] [place] End: 01-28-2020 HIV 1/2 AB Multispot HIV 1/2 AB Multispot Lab Routine Once for 1 Occurrences starting 01/28/2020 until 01/28/2020 [place] Comment on above: Once for 1 Occurrenc es starting 01/28/2020 until 01/28/2020 HIV 1/2 AB Multispot HIV 1/2 AB Multispot Lab Routine 01/28/2020 12:12 PM [facility] [place] Oxygen therapy [[facility] Data Set] Initiate Oxygen Therapy Protocol Respiratory Care Routine As Needed until discontinued starting 03/16/2022 [employer] Phone: Comment on above: As Needed until disc ontinued starting 03/16/2022 RHOGAM INJECTION ONLY RHOGAM INJ ECTION ONLY Blood Bank [employer] Label Print 03/16/2022 5:15 AM EST [employer] Phone: Spirometry panel Incentive hilario metry Respiratory Care Routine Every 2hr while awake until discontinued starting 03/16/2022 [employer] Phone: Comment on above: Every 2hr while awak e until discontinued starting 03/16/2022 Spirometry panel Incentive hilario metry RT Respiratory Care Routine As Needed until discontinued starting 03/18/2022 [employer] Phone: Comment on above: As Needed until disc ontinued starting 03/18/2022 End: 03-15-2022 TYPE AND SCREEN [employer] Phone: Comment on above: One Time for 1 Occur rences starting 03/15/2022 until 03/15/2022 Immunizations Immunization Date Immunization Notes Care Provider Cassie rm 03-28-2023 influenza, injectable, quadrivalent, preservative free Marko Floro [facility] Work Phone: [facility] 03-16-2022 diphtheria, tetanus toxoids and acellular pertussis vaccine, unspecified formulation Quinn Wong MD Work Phone: [employer] [facility] Work Phone: 03-16-2022 measles, mumps and rubella virus vaccine Quinn Wong MD Work Phone: [employer] [facility] Work Phone: 03-16-2022 RHO(D) immune globulin - IM Quinn Wong MD Work Phone: [employer] [facility] Work Phone: NEGATED: Highlighted row has not occurred!02-13-2023 RHO(D) immune globulin - IM Marko Barroso [facility] Work Phone: [facility] Comment on above: Deferred: Other Payers Date Payer Category Payer Unknown [employer] [id number] 2022-Present [address] [place] [address] [id number] 2022 Unknown [id number] 2021 Unknown [id number] 2014 [employer] ( and others) [facility] [id number] 2014-Present [address] [place] [address] [id number] 1982 Unknown [id number] 2.16.840.1.156102.3.579.2 .593 1982 Unknown [id number] 2.840.1.776492.3.579.2 .173 1982 Unknown [id number] 2.16840.1.282292.3.579.2 .173 1982 Unknown [id number] 2.16.840.1.444432.3.579.2 .1258 1982 Unknown [id number] 2.840.1.952047.3.579.2 .1258 1982 Unknown [id number] 2.840.1.233045.3.579.2 .1258 1982 Unknown [id number] 2.0.1.640818.3.579.2 .1258 1982 Unknown [id number] 2.0.1.400335.3.579.2 .1258 1982 Unknown [id number] 2.0.1.739775.3.579.2 .1258 1982 Unknown [id number] 2.0.1.172868.3.579.2 .1258 1982 Unknown [id number] 2..1.651796.3.579.2 .1258 1982 Unknown [id number] 2.840.1.493728.3.579.2 .1258 1982 Unknown [id number] 2.0.1.790028.3.579.2 .1258 1982 Unknown [id number] 2.840.1.836641.3.579.2 .1258 1982 Unknown [id number] 2.840.1.174751.3.579.2 .1258 1982 Unknown [id number] 2.840.1.799004.3.579.2 .1258 1982 Unknown [id number] 2.840.1.350729.3.579.2 .1258 1982 Unknown [id number] 2.840.1.789326.3.579.2 .1259 Social History Date Type Detail Facility Start: 01-28-2020 End: 09-22-2022 Tobacco smoking status NHIS Never smoker [place] Start: 01-28-2020 Tobacco use and exposure Never used [facility] [employer] Start: 01-28-2020 End: 11-04-2022 Alcohol intake Current drinker of alcohol (finding) [place] Start: 01-28-2020 Alcohol Comment occ [place] Start: 1982 Sex Assigned At Not on file M [place], [place] Start: 03-06-2022 End: 03-16-2022 Exposure to SARS-CoV-2 (event) Not sure [facility] Work Phone: Start: 09-22-2022 History of Social function [facility] Start: 09-22-2022 Tobacco use panel [facility] Start: 09-22-2022 Alcohol Comment 1 or 2 drinks on typical day/monthly or less. Caffeine: 1-2 cups/day coffee i am [facility] Start: 08-09-2022 [facility] History of Present illness Narrative 05-01-2023 Marko Herbert CNM - 05/01/2023 10:53 AM EST Note Date & Type Note Facility 05-01-2023 History of Presen t illness Narrative Patient texted me over the weekend that she has mastitis and baby is having difficulty latching onto breast. She has had mastitis before and states that it's exactly the same as before. I gave her instructions to use Motrin 600 mg q6hrs x48 hours, vigorous handwashing, rest 3x a day for 30-60 mins and ice if needed. Rx sent to pharmacy today for antibiotic. She is also at [facility] meeting with RANDALL Rodriguez documented in this encounter [facility] Medication management note 01-04-2023 Note Date & Type Note Facility 01-04-2023 Note From: [facility] [id number] 1 To: Janeth Taylor CNP Sent: January 04, 2023 8:46:58 AM CDT Subject: Medication Management Due: January 05, 2023 8:46:58 AM CDT Originally Prescribed Drug: Drug: progesterone (progesterone 50 mg/mL intramuscular solution), INJECT 1ML IM 2X WEEK DIRECTED Quantity: 10 mL Days Supply: 30 Refills: 3 Substitutions Allowed Notes from Pharmacy: Alternative Requested:CAN ONLY GET IN THE 500/10 MG VIALS [facility] Discharge instructions 03-18-2022 Discharge Instructions Note Date & Type Note Facility 03-18-2022 Hospital Discharg e instructions Nancie Reyes RN - 03/18/2022 1:11 PM EST Follow-up with your OB doctor as specified. [facility] OB Department phone: Sri Herbert, MSN, CARDIOPULMONARY TECHNICIAN AND EEG TECH, CNM [place] [id number] [place] [address] DIET Eat a well balanced diet focusing on foods high in fiber and protein. Drink plenty of fluids especially water. To avoid constipation you may take a mild stool softener as recommended by your doctor or test developer. ACTIVITY Gradually increase your activity. Resume exercise regimen only after advice by your doctor or test developer. Avoid lifting anything heavier than a gallon of milk for SIX weeks. Avoid driving until your doctor or test developer has given their approval. Rise slowly from [...] of harming yourself or your infant. If will not stop crying, contact another adult for help or place in their crib on their back and take a break. NEVER shake your infant. BLEEDING Vaginal bleeding will decrease in amount [...] medications as recommended by your doctor or test developer for pain If you develop a warm, red, tender area on your breast or develop a fever contact your OB provider. For moms: If you become engorged, feeding may be more difficult or painful for 1-2 days. You may find it helpful to hand express some milk so that the can latch on more easily. While , continue to take your vitamins as directed by your doctor or test developer. Refer to the booklet in the folder/binder for more information. If you feel you need more assistance or have questions, please call Sveta Ely IBCLC, oracle drm consultant, at or the OB department to [...] they become loose or soiled. If used, Jones should be removed by your care provider. [...] your calf. documented in this encounter [facility] Work Phone: History of Present illness Narrative 03-18-2022 YAYO Murdock - 03/18/2022 12:52 PM YAYO Marte CNM [...] F (36.9 C) Oral 66 18 -- 03/16/22 2000 (!) 116/58 98.5 F (36.9 C) Oral [...] lock Shower today Use abdominal binder Fiordaliza Herbert CNM in room at this time reviewing POC. Neurosurgery Physician Note: I first assisted Dr Wong with [...] OR. Dr. Wong at bedside, consents signed. Dialysis Equipment Technician witnessed. Fiordaliza Herbert CNM at bedside. Updated on H&P needing to be done. CNM states she will complete now. Lilian Carrington CRNA at bedside reviewing consent form. Dialysis Equipment Technician witnessed. documented in this encounter [facility] Phone: Clinical Note 01-10-2022 Note Date & [...] Placenta Anterior Grade I Weight (g) by Mchlzikhpq13.5 % * These measurements result in an [...] signed by Eduardo Peres on 01/11/2022 0642 [facility] Specialist Clinical Note 11-02-2021 Note Date & Type [...] Anterior fundal Grade I Weight (g) by Hkvdohguro18.0 % * These measurements result in an [...] signed by Eduardo Peres on 11/03/2021 0712 [facility] Babcock Tester Clinical Note 12-04-2020 Note Date & Type [...] authenticated by: REGAN BATES Date: 2020-12-04 21:27 Evaluation note Note Date & Type Note Facility Evaluation note Diagnosis S/P repeat low transverse - Primary delivery, without mention of indication, unspecified as to episode of care S/P repeat low transverse delivery, without mention of indication, unspecified as to episode of care Viral upper respiratory tract infection Acute upper respiratory infections of unspecified site Term documented in this encounter [facility] Phone: Evaluation note Note Date & Type Note Facility Evaluation note Diagnosis Mastitis- Primary Inflammatory disease of breast documented in this encounter [facility] Assessments Diagnosis Screen for STD (sexually transmitted [...] and content) DATE CREATED AUTHOR 12/08/2020 [facility] pital DATE CREATED AUTHOR AUTHOR'S ORGANIZ ATION 01/24/2022 [facility] dical Specialist DATE CREATED AUTHOR AUTHOR'S ORGANIZ ATION 03/22/2022 [facility] DATE CREATED AUTHOR AUTHOR'S ORGANIZ ATION 02/24/2023 [facility] DATE CREATED AUTHOR AUTHOR'S ORGANIZ ATION 05/07/2023 [facility] dical Specialists EPIC Care Teams (unrecognized sec tion and content) Customer Order Clerk Relationship Specialty Start Date End Date Shanique Mark MD [address] [place] [id number] PCP - General Family Medicine 03/15/22 Customer Order Clerk Relationship Specialty Start Date End Date Shanique Mark MD [address] [place] [id number] PCP - General Family Medicine 03/15/22 Customer Order Clerk Relationship Specialty Start Date End Date Shanique Curry MD [address] [place] [address] PCP - General 09/15/22 Reason for Visit (unrecogniz ed section and content) Reason Comments Scheduled Specialty Diagnoses / Procedures Referred By Contac t Referred To Contact Diagnoses Delivered by delivery following previous delivery Term Repeat 39 weeks. Gopi TIM to nurseryman assistant. Procedures ME DELIVERY ONLY SECTION Marko Herbert APRN - CNM [address] [place] [address] [facility] [address] [place] [address] Referral ID Status Reason Start Date Expiration Date Visits Re quested Visits Authorized [id number] 1 1 Ordered Prescriptions (unrec ognized section [...] 50 mL (mini-bag) (COMPLETED) 2,000 mg, IntraVENous, CUTTER BRAKE LINING TO O.R., 1 dose, On Mon03/16/22 at [...] Until Discontinued, Do not crush or break., 0934 (Not Given - Provider: Marti Domingo [...] of surgery) 0647 (Given - Provider: Shanda Montoya RN) guaiFENesin-dextromethorp gutierrez (ROBITUSSIN DM) 100-10 MG/5ML syrup [...] second dose off of first dose give, 141 (Given - Provider: Marti Domingo RN)2052 (Given - Provider: Dennis Cope RN) 041 (Given - Provider: Dennis Cope RN)1133 (Not [...] Held) 0545 (New Bag - Provider: Shanda Montoya, PANCHO)0649 (Stopped - Provider: Shanda Montoya, RN) metoclopramide (REGLAN) injection 10 mg (COMPLETED) 10 [...] Reason: Contraindicated) 1058 (Given - Provider: Trixie Pérez RN) 0905 (Given - Provider: Nancie Reyes RN) rho(D) immune globulin (HYPERRHO S/D) injection 300 [...] - Reason: Loss of IV access)2100 (Due) sruewra-iymbfk-jzntb pertussis (BOOSTRIX) injection 0.5 mL 0.5 mL, [...] Held) 0647 (New Bag - Provider: Shanda Montoya, PANCHO) lactated ringers infusion IntraVENous, at 125 mL/hr, CONTINUOUS, Starting on Mon03/16/22 at 0945, 0905 (New Bag - Provider: Marti Domingo, RN)1651 (New Bag - Provider: Amisha Deutsch, PANCHO) 0100 (New Bag - Provider: Jemima Ramirez, [...] Oral, EVERY 8 HOURS PRN, Starting on Mon03/16/22 at 0918, Until Discontinued, Other, Pain (1-10), Give in addition to any other pain medication ordered at same time for any pain indication. Maximum dose of acetaminophen is 4000mg from all sources in 24 hours. Alternate ibuprofen and acetaminophen every 4 hours., 1712 (Given - Provider: Amisha Deutsch RN) 0058 (Given - Provider: Jemima Ramirez RN)1407 (Given - Provider: Amisha Deutsch RN)2231 (Given - Provider: Jemima Ramirez RN) 0631 (Given - Provider: Jemima Ramirez RN) Benzocaine-Menthol (CEPACOL) 1 lozenge 1 lozenge, Oral, EVERY 2 HOURS PRN, Starting on Mon03/17/22 at 1816, Until Discontinued, Sore Throat carboprost [...] Oral, EVERY 8 HOURS PRN, Starting on Mon03/17/22 at 0800, Until Mon03/21/22 at 0759, Other, (Pain 1-10), Give in [...] at 0918, Post-op 1151 (Given - Provider: Sveta Ely, IBCLC - Comment: nipples) measles, mumps & rubella [...] Trixie Pérez RN)1654 (Given - Provider: Best Maddox, PANCHO)1749 (Given - Provider: Best Maddox RN)2146 (Given [...] bags of pitocin, Multiphase Phase of Care 0802 (New Bag - Provider: Gabriela Carrington, CARDIOPULMONARY TECHNICIAN AND EEG TECH - EQUIPMENT MAINTENANCE SUPERVISOR)0905 (Rate/Dose Verify - Provider: Marti Domingo RN) [...] BE BASED ON THE PRIMARY CLINICAL RECORDS. [employer] [facility]. provides no warranty or guarantee of the accuracy or completeness of information in this document.
--- NOTE | 2023-05-09 13:52 | PC.NURSE ---
Arrives today with reports that feeding and latching much improved. Nipples are healed and no evidence of trauma noted. Baby's weight is up and plenty of output reported. Infant to breast and deep latch noted with audible swallows. No further concerns voiced by mom. Leaves ambulatory for home, aware of [facility] and to call as needed.
== END 2023-05-09 13:30 | disposition home or self-care (01) ==
LOC: FBCO 08:37
PROVIDERS: Visit Provider Midwife
DX: Z39.1 Encounter for care and examination of lactating mother (principal)
CPT/HCPCS: G0463